=== PATIENT | male | born 1960 | race Caucasian/White ===

== ENCOUNTER 2017-03-09 20:13 | Inpatient (IN) | payer MEDICARE, MEDICAID ==
[~2017-03-09] VITALS: Ht 185.4 cm; Wt 100.0 kg
[~2017-03-09 20:13] MED LIST: AMLO-512 PO; DIVA500T35 PO; DOCU250C76 PO; HYDR25TA PO; LEVO100T4 PO; LISI-661 PO; LURA80 PO; OLAN20TA2 PO; OMEP20 PO; QUET100T PO; QUET400T PO
[2017-03-09] MEDS ORDERED: ZOLPIDEM TARTRATE 10 MG TABLET PO PRN (20:45)
[2017-03-09] MEDS ORDERED: OLANZapine 5 MG RAPDIS TABLET PO PRN (20:45)
[2017-03-09] MEDS ORDERED: LORazepam 2 MG TABLET PO PRN (20:45)
[2017-03-09] MEDS ORDERED: BENZ2TAB10 PO (20:45)
[2017-03-09] MEDS ORDERED: HALO10 PO ×2 (20:45)
[2017-03-09 21:01] LABS: BASOPHILS % (AUTO) 0.4 % (0.0-2.0); EOSINOPHILS % (AUTO) 2.7 % (1.0-6.0); HEMATOCRIT 46.6 % (41-53); LYMPHOCYTES # (AUTO) 0.8 K/uL (1.0-4.8); LYMPHOCYTES % (AUTO) 18.6 % (22.0-44.0); MEAN CORPUSCULAR HEMOGLOBIN 28.6 pg (26.0-34.0); MEAN CORPUSCULAR HGB CONC 32.1 G/dL (31.0-37.0); MEAN CORPUSCULAR VOLUME 89 fL (80-100); MONOCYTES # (AUTO) 0.5 K/uL (0.1-1.0); MONOCYTES % (AUTO) 11.2 % (2.0-9.0); NEUTROPHILS # (AUTO) 2.9 K/uL (1.8-7.7); NEUTROPHILS % (AUTO) 67.1 % (40.0-70.0); PLATELET COUNT (AUTO) 162 K/uL (150-450); RED BLOOD CELL COUNT(AUTO) 5.23 MIL/uL (4.50-5.90); RED CELL DISTRIBUTION WIDTH 14.4 % (11.5-14.5); WHITE BLOOD COUNT (AUTO) 4.3 K/uL (4.5-11.0)
[2017-03-09 21:12] LABS: ANION GAP 10 mmol/L (8-16); CALCIUM, TOTAL 8.7 mg/dL (8.8-10.5); CARBON DIOXIDE 26 mmol/L (22-29); CHLORIDE 103 mmol/L (98-107); CREATININE 1.35 mg/dL (0.60-1.30); GLOMERULAR FILTR. RATE CALC 55 mL/min (>60); POTASSIUM 3.5 mmol/L (3.5-5.1); SODIUM SERUM 139 mmol/L (136-145); UREA NITROGEN, BLOOD 13 mg/dL (7-18)
[2017-03-09 21:18] LABS: ALANINE AMINOTRANSFERASE 13 U/L (12-78); ASPARTATE AMINOTRANSFERASE 15 U/L (15-37); BILIRUBIN,TOTAL 0.3 mg/dL (0.1-1.0); TOTAL PROTEIN, SERUM 6.4 g/dL (6.4-8.2)
[2017-03-09 21:31] LABS: CHOL/HDL RATIO 3.2 (4.2-7.3)
[2017-03-10 00:22] VITALS: BP 141/72
[2017-03-10] MEDS ORDERED: QUEtiapine FUMARATE 100 MG TABLET PO PRN (01:00)
[2017-03-10 01:18] VITALS: BP 141/86
[2017-03-10 02:10] LABS: APPEARANCE,URINE CLEAR (CLEAR); GLUCOSE, URINE (UA) NEGATIVE (NEGATIVE); KETONES,URINE NEGATIVE (NEGATIVE); LEUKOCYTE ESTERASE ,URINE NEGATIVE (NEGATIVE); OCCULT BLOOD,URINE NEGATIVE (NEGATIVE); PROTEIN,URINE SEE CONFIRM (NEGATIVE)
[2017-03-10 02:40] LABS: ADD UA MICROSCOPIC YES; SULFOSALICYLIC ACID,URINE 1+ (Negative); WBC,URINE None Seen /HPF (0-5)
[2017-03-10 02:41] LABS: RBC,URINE 0-2 /HPF (0-2); SQUAMOUS EPITHELIAL CELL,UR Rare /LPF (None Seen)
[2017-03-10 08:00] VITALS: BP 152/86
[2017-03-10 16:01] VITALS: BP 138/92
[2017-03-10] MEDS ORDERED: PALI234D IM (20:27)
== END 2017-03-10 21:00 | disposition home or self-care (01) | DRG 885 ==
LOC: EMS 20:18 → EEVIPCON 20:18 → 3EX 21:32
PROVIDERS: ADMIT Psychiatry & Neurology Psychiatry; ATTEND Psychiatry & Neurology Psychiatry
DX: F29 Unspecified psychosis not due to a substance or known physiological condition (principal); R45.851 Suicidal ideations; F25.9 Schizoaffective disorder, unspecified; F41.9 Anxiety disorder, unspecified; I10 Essential (primary) hypertension; K21.9 Gastro-esophageal reflux disease without esophagitis; E03.9 Hypothyroidism, unspecified; J44.9 Chronic obstructive pulmonary disease, unspecified; F12.90 Cannabis use, unspecified, uncomplicated; F17.210 Nicotine dependence, cigarettes, uncomplicated; Z91.14 Patient's other noncompliance with medication regimen; Z79.899 Other long term (current) drug therapy; Z88.8 Allergy status to other drugs, medicaments and biological substances; Z81.1 Family history of alcohol abuse and dependence
CPT/HCPCS: 99285; G0480

== ENCOUNTER 2017-08-31 11:24 | Inpatient (IN) | payer MEDICARE, MEDICAID ==
[~2017-08-31] VITALS: Ht 193 cm; Wt 78.5 kg
[~2017-08-31 11:24] MED LIST changes: -AMLO-512 PO; +BENZ2TAB10 PO; -DIVA500T35 PO; -DOCU250C76 PO; +HALO10 PO; -HYDR25TA PO; -LEVO100T4 PO; -LISI-661 PO; -LURA80 PO; -OLAN20TA2 PO; -OMEP20 PO; +PALI234D IM; -QUET100T PO; -QUET400T PO
[2017-08-31 12:21] LABS: BASOPHILS % (AUTO) 0.6 % (0.0-2.0); EOSINOPHILS % (AUTO) 2.6 % (1.0-6.0); HEMATOCRIT 35.7 % (41-53); LYMPHOCYTES # (AUTO) 1.4 K/uL (1.0-4.8); LYMPHOCYTES % (AUTO) 23.8 % (22.0-44.0); MEAN CORPUSCULAR HEMOGLOBIN 29.9 pg (26.0-34.0); MEAN CORPUSCULAR HGB CONC 33.6 G/dL (31.0-37.0); MEAN CORPUSCULAR VOLUME 89 fL (80-100); MONOCYTES # (AUTO) 0.5 K/uL (0.1-1.0); MONOCYTES % (AUTO) 8.3 % (2.0-9.0); NEUTROPHILS # (AUTO) 3.8 K/uL (1.8-7.7); NEUTROPHILS % (AUTO) 64.7 % (40.0-70.0); PLATELET COUNT (AUTO) 246 K/uL (150-450); RED BLOOD CELL COUNT(AUTO) 4.02 MIL/uL (4.50-5.90); RED CELL DISTRIBUTION WIDTH 15.1 % (11.5-14.5)
[2017-08-31 12:36] LABS: ANION GAP 9 mmol/L (8-16); CALCIUM, TOTAL 8.9 mg/dL (8.8-10.5); CARBON DIOXIDE 27 mmol/L (22-29); CHLORIDE 104 mmol/L (98-107); CREATININE 1.35 mg/dL (0.60-1.30); GLOMERULAR FILTR. RATE CALC 55 mL/min (>60); GLUCOSE,RANDOM 81 mg/dL (70-110); POTASSIUM 3.9 mmol/L (3.5-5.1); SODIUM SERUM 140 mmol/L (136-145); UREA NITROGEN, BLOOD 17 mg/dL (7-18)
[2017-08-31 12:41] LABS: ALANINE AMINOTRANSFERASE 24 U/L (12-78); ALKALINE PHOSPHATASE 60 U/L (46-116); ASPARTATE AMINOTRANSFERASE 55 U/L (15-37); BILIRUBIN,TOTAL 0.5 mg/dL (0.1-1.0); TOTAL PROTEIN, SERUM 6.2 g/dL (6.4-8.2)
[2017-08-31 17:04] VITALS: BP 145/75
[2017-08-31] MEDS ORDERED: INFLUENZA VIRUS VACCINE QVS 2017-18 (3YR+)/PF 60 MCG/0.5 ML SYRINGE IM ONE (18:00)
[2017-09-01 06:39] VITALS: BP 106/62
[2017-09-01 08:32] VITALS: BP 101/65
[2017-09-01 09:06] LABS: CHOL/HDL RATIO 1.9 (4.2-7.3); FREE T4 (FREE THYROXINE) 0.77 ng/dL (0.76-1.46); THYROID STIMULATING HORMONE 7.05 uIU/mL (0.36-3.74)
[2017-09-01] MEDS: HALOPERIDOL 10 MG TABLET PO SCH ×2 (09:06→17:02)
[2017-09-01] MEDS: BENZTROPINE MESYLATE 2 MG TABLET PO SCH ×2 (09:06→17:02)
[2017-09-01] MEDS ORDERED: ALBUTEROL SULFATE HFA 90 MCG/PUFF 8 GM INHALER IH PRN (15:15)
[2017-09-01] MEDS ORDERED: DIVALPROEX SODIUM 500 MG ER TABLET PO SCH (17:00)
[2017-09-01] MEDS: LORazepam 2 MG TABLET PO PRN (17:02)
[2017-09-01] MEDS: FLUTICASONE/VILANTEROL 200-25 MCG/INH INHALER [14] IH SCH (17:07)
[2017-09-01 17:11] VITALS: BP 116/65
[2017-09-02] MEDS: LEVOTHYROXINE SODIUM 50 MCG TABLET PO SCH (06:12)
[2017-09-02 06:35] VITALS: BP 104/68
[2017-09-02 08:11] VITALS: BP 106/63
[2017-09-02] MEDS: BENZTROPINE MESYLATE 2 MG TABLET PO SCH ×2 (09:31→18:03)
[2017-09-02] MEDS: PALIPERIDONE 3 MG ER TABLET PO SCH ×2 (09:31→21:10)
[2017-09-02] MEDS: FLUTICASONE/VILANTEROL 200-25 MCG/INH INHALER [14] IH SCH (09:33)
[2017-09-02] MEDS: LORazepam 2 MG TABLET PO PRN (15:07)
[2017-09-02 16:00] VITALS: BP 122/75
[2017-09-02] MEDS: ZOLPIDEM TARTRATE 10 MG TABLET PO PRN (21:10)
[2017-09-03] MEDS: LEVOTHYROXINE SODIUM 50 MCG TABLET PO SCH (06:18)
[2017-09-03 06:30] VITALS: BP 120/79
[2017-09-03 08:19] VITALS: BP 125/61
[2017-09-03] MEDS: PALIPERIDONE 3 MG ER TABLET PO SCH ×2 (08:57→20:39)
[2017-09-03] MEDS: BENZTROPINE MESYLATE 2 MG TABLET PO SCH ×2 (08:57→17:54)
[2017-09-03] MEDS: FLUTICASONE/VILANTEROL 200-25 MCG/INH INHALER [14] IH SCH (09:00)
[2017-09-03 16:00] VITALS: BP 132/79
[2017-09-03] MEDS: LORazepam 2 MG TABLET PO PRN (17:54)
[2017-09-03] MEDS: ZOLPIDEM TARTRATE 10 MG TABLET PO PRN (20:39)
[2017-09-04 02:24] VITALS: BP 126/74
[2017-09-04] MEDS: LEVOTHYROXINE SODIUM 50 MCG TABLET PO SCH (06:21)
[2017-09-04 08:13] LABS: BASOPHILS % (AUTO) 0.6 % (0.0-2.0); EOSINOPHILS % (AUTO) 3.9 % (1.0-6.0); HEMATOCRIT 38.5 % (41-53); HEMOGLOBIN 12.8 g/dL (13.5-17.5); LYMPHOCYTES # (AUTO) 1.2 K/uL (1.0-4.8); LYMPHOCYTES % (AUTO) 26.9 % (22.0-44.0); MEAN CORPUSCULAR HEMOGLOBIN 29.7 pg (26.0-34.0); MEAN CORPUSCULAR HGB CONC 33.3 G/dL (31.0-37.0); MEAN CORPUSCULAR VOLUME 89 fL (80-100); MONOCYTES # (AUTO) 0.4 K/uL (0.1-1.0); MONOCYTES % (AUTO) 8.9 % (2.0-9.0); NEUTROPHILS # (AUTO) 2.6 K/uL (1.8-7.7); NEUTROPHILS % (AUTO) 59.7 % (40.0-70.0); PLATELET COUNT (AUTO) 235 K/uL (150-450); RED BLOOD CELL COUNT(AUTO) 4.31 MIL/uL (4.50-5.90); RED CELL DISTRIBUTION WIDTH 15.3 % (11.5-14.5)
[2017-09-04] MEDS: BENZTROPINE MESYLATE 2 MG TABLET PO SCH ×2 (08:13→16:54)
[2017-09-04] MEDS: PALIPERIDONE 3 MG ER TABLET PO SCH ×2 (08:13→20:58)
[2017-09-04] MEDS: FLUTICASONE/VILANTEROL 200-25 MCG/INH INHALER [14] IH SCH (08:13)
[2017-09-04] MEDS: LORazepam 2 MG TABLET PO PRN ×2 (08:13→16:54)
[2017-09-04 08:21] VITALS: BP 138/73
[2017-09-04 08:24] LABS: ALANINE AMINOTRANSFERASE 19 U/L (12-78); ALBUMIN 2.9 g/dL (3.4-5.0); ALKALINE PHOSPHATASE 59 U/L (46-116); ANION GAP 5 mmol/L (8-16); ASPARTATE AMINOTRANSFERASE 19 U/L (15-37); BILIRUBIN,TOTAL 0.3 mg/dL (0.1-1.0); CALCIUM, TOTAL 9.3 mg/dL (8.8-10.5); CARBON DIOXIDE 29 mmol/L (22-29); CHLORIDE 105 mmol/L (98-107); CREATININE 1.19 mg/dL (0.60-1.30); GLOMERULAR FILTR. RATE CALC > 60 mL/min (>60); GLUCOSE,RANDOM 80 mg/dL (70-110); POTASSIUM 4.4 mmol/L (3.5-5.1); SODIUM SERUM 139 mmol/L (136-145); TOTAL PROTEIN, SERUM 6.3 g/dL (6.4-8.2); UREA NITROGEN, BLOOD 18 mg/dL (7-18)
[2017-09-04 08:35] LABS: FREE T4 (FREE THYROXINE) 0.81 ng/dL (0.76-1.46); THYROID STIMULATING HORMONE 19.04 uIU/mL (0.36-3.74); VALPROIC ACID < 3 mcg/mL (50-100)
[2017-09-04 16:00] VITALS: BP 127/87
[2017-09-04] MEDS: ZOLPIDEM TARTRATE 10 MG TABLET PO PRN (20:58)
[2017-09-05 05:39] VITALS: BP 126/79
[2017-09-05] MEDS: LEVOTHYROXINE SODIUM 100 MCG TABLET PO SCH (06:34)
[2017-09-05] MEDS: PALIPERIDONE 3 MG ER TABLET PO SCH (08:40)
[2017-09-05] MEDS: BENZTROPINE MESYLATE 2 MG TABLET PO SCH ×2 (08:40→16:18)
[2017-09-05] MEDS: FLUTICASONE/VILANTEROL 200-25 MCG/INH INHALER [14] IH SCH ×2 (08:40→08:42)
[2017-09-05] MEDS: LORazepam 2 MG TABLET PO PRN (08:41)
[2017-09-05 09:38] VITALS: BP 129/91
[2017-09-05] MEDS: CHOLECALCIFEROL (VIT D3) 1,000 UNITS TABLET PO SCH (10:16)
[2017-09-05 16:21] VITALS: BP 134/84
[2017-09-05] MEDS: PALIPERIDONE 6 MG ER TABLET PO SCH (17:17)
[2017-09-05] MEDS: ZOLPIDEM TARTRATE 10 MG TABLET PO PRN (20:27)
[2017-09-06 00:23] VITALS: BP 109/65
[2017-09-06] MEDS: LEVOTHYROXINE SODIUM 100 MCG TABLET PO SCH (07:07)
[2017-09-06 08:19] VITALS: BP 99/52
[2017-09-06] MEDS: FLUTICASONE/VILANTEROL 200-25 MCG/INH INHALER [14] IH SCH (08:59)
[2017-09-06] MEDS: BENZTROPINE MESYLATE 2 MG TABLET PO SCH ×2 (08:59→16:25)
[2017-09-06] MEDS: CHOLECALCIFEROL (VIT D3) 1,000 UNITS TABLET PO SCH (08:59)
[2017-09-06] MEDS: PALIPERIDONE 6 MG ER TABLET PO SCH ×2 (08:59→21:00)
[2017-09-06 09:00] VITALS: BP 124/80
[2017-09-06] MEDS: PALIPERIDONE PALMITATE 234 MG/1.5 ML SYRINGE IM SCH (09:42)
[2017-09-06 16:00] VITALS: BP 130/79
[2017-09-06] MEDS: LORazepam 2 MG TABLET PO PRN (16:25)
[2017-09-07] MEDS: LEVOTHYROXINE SODIUM 100 MCG TABLET PO SCH (06:19)
[2017-09-07 06:41] VITALS: BP 125/78
[2017-09-07] MEDS: FLUTICASONE/VILANTEROL 200-25 MCG/INH INHALER [14] IH SCH (08:59)
[2017-09-07] MEDS: PALIPERIDONE 6 MG ER TABLET PO SCH ×2 (08:59→09:00)
[2017-09-07] MEDS: BENZTROPINE MESYLATE 2 MG TABLET PO SCH ×2 (08:59→16:17)
[2017-09-07] MEDS: CHOLECALCIFEROL (VIT D3) 1,000 UNITS TABLET PO SCH (08:59)
[2017-09-07] MEDS: LORazepam 2 MG TABLET PO PRN (09:04)
[2017-09-07 09:11] VITALS: BP 114/64
[2017-09-07 16:00] VITALS: BP 131/76
[2017-09-08 00:44] VITALS: BP 137/77
[2017-09-08] MEDS: LEVOTHYROXINE SODIUM 100 MCG TABLET PO SCH (06:08)
[2017-09-08 08:15] VITALS: BP 107/62
[2017-09-08] MEDS: FLUTICASONE/VILANTEROL 200-25 MCG/INH INHALER [14] IH SCH (08:41)
[2017-09-08] MEDS: CHOLECALCIFEROL (VIT D3) 1,000 UNITS TABLET PO SCH (08:42)
[2017-09-08] MEDS: BENZTROPINE MESYLATE 2 MG TABLET PO SCH ×2 (09:25→16:32)
[2017-09-08 16:00] VITALS: BP 138/86
[2017-09-08] MEDS: LORazepam 2 MG TABLET PO PRN (16:32)
[2017-09-09 02:18] VITALS: BP 132/83
[2017-09-09] MEDS: LEVOTHYROXINE SODIUM 100 MCG TABLET PO SCH (06:33)
[2017-09-09 08:25] VITALS: BP 122/78
[2017-09-09] MEDS: CHOLECALCIFEROL (VIT D3) 1,000 UNITS TABLET PO SCH (08:28)
[2017-09-09] MEDS: FLUTICASONE/VILANTEROL 200-25 MCG/INH INHALER [14] IH SCH (08:28)
[2017-09-09] MEDS: BENZTROPINE MESYLATE 2 MG TABLET PO SCH ×2 (08:28→16:50)
[2017-09-09 16:12] VITALS: BP 135/86
[2017-09-10] MEDS: LEVOTHYROXINE SODIUM 100 MCG TABLET PO SCH (06:19)
[2017-09-10 06:46] VITALS: BP 107/74
[2017-09-10] MEDS: LORazepam 2 MG TABLET PO PRN (08:19)
[2017-09-10] MEDS: FLUTICASONE/VILANTEROL 200-25 MCG/INH INHALER [14] IH SCH (08:19)
[2017-09-10] MEDS: CHOLECALCIFEROL (VIT D3) 1,000 UNITS TABLET PO SCH (08:19)
[2017-09-10] MEDS: BENZTROPINE MESYLATE 2 MG TABLET PO SCH ×2 (08:19→16:17)
[2017-09-10 09:44] VITALS: BP 99/62
[2017-09-10 16:33] VITALS: BP 123/79
[2017-09-11] MEDS: LEVOTHYROXINE SODIUM 100 MCG TABLET PO SCH (06:09)
[2017-09-11 06:59] VITALS: BP 126/69
[2017-09-11 08:11] VITALS: BP 105/68
[2017-09-11] MEDS: CHOLECALCIFEROL (VIT D3) 1,000 UNITS TABLET PO SCH ×2 (09:00→09:21)
[2017-09-11] MEDS: FLUTICASONE/VILANTEROL 200-25 MCG/INH INHALER [14] IH SCH ×2 (09:00→09:19)
[2017-09-11] MEDS: BENZTROPINE MESYLATE 2 MG TABLET PO SCH ×2 (09:21→17:02)
[2017-09-11 16:00] VITALS: BP 121/78
[2017-09-12] MEDS: LEVOTHYROXINE SODIUM 100 MCG TABLET PO SCH (06:08)
[2017-09-12 07:27] VITALS: BP 128/80
[2017-09-12 08:10] VITALS: BP 122/72
[2017-09-12] MEDS: BENZTROPINE MESYLATE 2 MG TABLET PO SCH ×2 (08:48→16:42)
[2017-09-12] MEDS: CHOLECALCIFEROL (VIT D3) 1,000 UNITS TABLET PO SCH (08:48)
[2017-09-12] MEDS: FLUTICASONE/VILANTEROL 200-25 MCG/INH INHALER [14] IH SCH (08:48)
[2017-09-12 16:00] VITALS: BP 115/68
[2017-09-13 05:41] VITALS: BP 123/79
[2017-09-13] MEDS: LEVOTHYROXINE SODIUM 100 MCG TABLET PO SCH (06:36)
[2017-09-13 08:20] VITALS: BP 139/78
[2017-09-13] MEDS: CHOLECALCIFEROL (VIT D3) 1,000 UNITS TABLET PO SCH (09:24)
[2017-09-13] MEDS: FLUTICASONE/VILANTEROL 200-25 MCG/INH INHALER [14] IH SCH (09:24)
[2017-09-13] MEDS: BENZTROPINE MESYLATE 2 MG TABLET PO SCH ×2 (09:24→16:22)
[2017-09-13 16:00] VITALS: BP 136/77
[2017-09-13] MEDS: DIVALPROEX SODIUM 500 MG ER TABLET PO SCH (16:22)
[2017-09-14 06:21] VITALS: BP 113/74
[2017-09-14] MEDS: LEVOTHYROXINE SODIUM 100 MCG TABLET PO SCH (06:22)
[2017-09-14] MEDS: FLUTICASONE/VILANTEROL 200-25 MCG/INH INHALER [14] IH SCH (08:51)
[2017-09-14] MEDS: CHOLECALCIFEROL (VIT D3) 1,000 UNITS TABLET PO SCH (08:51)
[2017-09-14] MEDS: BENZTROPINE MESYLATE 2 MG TABLET PO SCH ×2 (08:51→16:25)
[2017-09-14] MEDS: DIVALPROEX SODIUM 500 MG ER TABLET PO SCH ×2 (08:51→16:25)
[2017-09-14 09:16] VITALS: BP 101/58
[2017-09-14 17:26] VITALS: BP 130/77
[2017-09-15] MEDS: LEVOTHYROXINE SODIUM 100 MCG TABLET PO SCH (06:10)
[2017-09-15] MEDS: CHOLECALCIFEROL (VIT D3) 1,000 UNITS TABLET PO SCH (08:17)
[2017-09-15] MEDS: BENZTROPINE MESYLATE 2 MG TABLET PO SCH ×2 (08:17→16:47)
[2017-09-15] MEDS: DIVALPROEX SODIUM 500 MG ER TABLET PO SCH ×2 (08:17→16:47)
[2017-09-15] MEDS: FLUTICASONE/VILANTEROL 200-25 MCG/INH INHALER [14] IH SCH (08:17)
[2017-09-15 08:30] VITALS: BP 117/69
[2017-09-15 16:00] VITALS: BP 137/87
[2017-09-16] MEDS: LEVOTHYROXINE SODIUM 100 MCG TABLET PO SCH (06:23)
[2017-09-16 06:48] VITALS: BP 111/72
[2017-09-16 08:20] VITALS: BP 119/69
[2017-09-16] MEDS: FLUTICASONE/VILANTEROL 200-25 MCG/INH INHALER [14] IH SCH (09:00)
[2017-09-16] MEDS: CHOLECALCIFEROL (VIT D3) 1,000 UNITS TABLET PO SCH (09:00)
[2017-09-16] MEDS: BENZTROPINE MESYLATE 2 MG TABLET PO SCH ×2 (09:00→16:04)
[2017-09-16] MEDS: LORazepam 1 MG TABLET PO SCH ×3 (09:00→16:04)
[2017-09-16 16:00] VITALS: BP 138/87
[2017-09-17] MEDS: LEVOTHYROXINE SODIUM 100 MCG TABLET PO SCH (06:07)
[2017-09-17 08:00] VITALS: BP 140/77
[2017-09-17 08:21] LABS: BASOPHILS % (AUTO) 0.8 % (0.0-2.0); EOSINOPHILS % (AUTO) 2.6 % (1.0-6.0); HEMATOCRIT 39.2 % (41-53); HEMOGLOBIN 13.3 g/dL (13.5-17.5); LYMPHOCYTES # (AUTO) 1.3 K/uL (1.0-4.8); LYMPHOCYTES % (AUTO) 25.1 % (22.0-44.0); MEAN CORPUSCULAR HEMOGLOBIN 29.9 pg (26.0-34.0); MEAN CORPUSCULAR HGB CONC 33.9 G/dL (31.0-37.0); MEAN CORPUSCULAR VOLUME 88 fL (80-100); MONOCYTES # (AUTO) 0.5 K/uL (0.1-1.0); MONOCYTES % (AUTO) 8.5 % (2.0-9.0); NEUTROPHILS # (AUTO) 3.3 K/uL (1.8-7.7); PLATELET COUNT (AUTO) 243 K/uL (150-450); RED BLOOD CELL COUNT(AUTO) 4.45 MIL/uL (4.50-5.90)
[2017-09-17] MEDS: FLUTICASONE/VILANTEROL 200-25 MCG/INH INHALER [14] IH SCH (08:23)
[2017-09-17] MEDS: LORazepam 1 MG TABLET PO SCH ×2 (08:23→16:48)
[2017-09-17] MEDS: BENZTROPINE MESYLATE 2 MG TABLET PO SCH ×2 (08:23→16:48)
[2017-09-17] MEDS: CHOLECALCIFEROL (VIT D3) 1,000 UNITS TABLET PO SCH (08:23)
[2017-09-17 09:05] LABS: ALANINE AMINOTRANSFERASE 14 U/L (12-78); ALKALINE PHOSPHATASE 59 U/L (46-116); ANION GAP 6 mmol/L (8-16); ASPARTATE AMINOTRANSFERASE 16 U/L (15-37); BILIRUBIN,TOTAL 0.4 mg/dL (0.1-1.0); CALCIUM, TOTAL 8.9 mg/dL (8.8-10.5); CARBON DIOXIDE 29 mmol/L (22-29); CHLORIDE 107 mmol/L (98-107); CREATININE 1.17 mg/dL (0.60-1.30); FREE T4 (FREE THYROXINE) 0.76 ng/dL (0.76-1.46); GLOMERULAR FILTR. RATE CALC > 60 mL/min (>60); GLUCOSE,RANDOM 85 mg/dL (70-110); POTASSIUM 4.1 mmol/L (3.5-5.1); SODIUM SERUM 142 mmol/L (136-145); THYROID STIMULATING HORMONE 13.62 uIU/mL (0.36-3.74); TOTAL PROTEIN, SERUM 6.4 g/dL (6.4-8.2); UREA NITROGEN, BLOOD 25 mg/dL (7-18); VALPROIC ACID 3 mcg/mL (50-100)
[2017-09-17 16:00] VITALS: BP 126/81
[2017-09-18 06:10] VITALS: BP 121/65
[2017-09-18] MEDS: LEVOTHYROXINE SODIUM 125 MCG TABLET PO SCH (06:25)
[2017-09-18 08:10] VITALS: BP 138/82
[2017-09-18] MEDS: LORazepam 1 MG TABLET PO SCH ×3 (08:48→16:23)
[2017-09-18] MEDS: CHOLECALCIFEROL (VIT D3) 1,000 UNITS TABLET PO SCH (08:48)
[2017-09-18] MEDS: BENZTROPINE MESYLATE 2 MG TABLET PO SCH ×2 (08:48→16:22)
[2017-09-18] MEDS: FLUTICASONE/VILANTEROL 200-25 MCG/INH INHALER [14] IH SCH (08:49)
[2017-09-18 16:00] VITALS: BP 122/74
[2017-09-19] MEDS: LEVOTHYROXINE SODIUM 125 MCG TABLET PO SCH (06:28)
[2017-09-19 06:32] VITALS: BP 131/79
[2017-09-19 08:26] VITALS: BP 135/84
[2017-09-19] MEDS: LORazepam 1 MG TABLET PO SCH ×3 (08:52→16:36)
[2017-09-19] MEDS: CHOLECALCIFEROL (VIT D3) 1,000 UNITS TABLET PO SCH (08:52)
[2017-09-19] MEDS: BENZTROPINE MESYLATE 2 MG TABLET PO SCH ×2 (08:52→17:47)
[2017-09-19] MEDS: FLUTICASONE/VILANTEROL 200-25 MCG/INH INHALER [14] IH SCH (08:52)
[2017-09-19 16:15] VITALS: BP 132/82
[2017-09-20] MEDS: LEVOTHYROXINE SODIUM 125 MCG TABLET PO SCH (06:26)
[2017-09-20 06:34] VITALS: BP 136/78
[2017-09-20] MEDS: BENZTROPINE MESYLATE 2 MG TABLET PO SCH ×3 (08:34→16:19)
[2017-09-20] MEDS: CHOLECALCIFEROL (VIT D3) 1,000 UNITS TABLET PO SCH ×2 (08:34→08:57)
[2017-09-20] MEDS: LORazepam 1 MG TABLET PO SCH ×4 (08:34→16:19)
[2017-09-20] MEDS: FLUTICASONE/VILANTEROL 200-25 MCG/INH INHALER [14] IH SCH (08:34)
[2017-09-20 09:17] VITALS: BP 134/77
[2017-09-20 16:00] VITALS: BP 131/79
[2017-09-21 06:31] VITALS: BP 119/84
[2017-09-21] MEDS: LEVOTHYROXINE SODIUM 125 MCG TABLET PO SCH (06:39)
[2017-09-21 08:18] VITALS: BP 136/76
[2017-09-21] MEDS: CHOLECALCIFEROL (VIT D3) 1,000 UNITS TABLET PO SCH (09:00)
[2017-09-21] MEDS: FLUTICASONE/VILANTEROL 200-25 MCG/INH INHALER [14] IH SCH (09:20)
[2017-09-21] MEDS: BENZTROPINE MESYLATE 2 MG TABLET PO SCH ×2 (09:20→16:10)
[2017-09-21] MEDS: LORazepam 1 MG TABLET PO SCH ×3 (09:20→16:10)
[2017-09-21 16:09] VITALS: BP 131/70
[2017-09-22] MEDS: LEVOTHYROXINE SODIUM 125 MCG TABLET PO SCH (06:17)
[2017-09-22 06:27] VITALS: BP 140/85
[2017-09-22 08:27] VITALS: BP 138/84
[2017-09-22] MEDS: CHOLECALCIFEROL (VIT D3) 1,000 UNITS TABLET PO SCH (09:00)
[2017-09-22] MEDS: FLUTICASONE/VILANTEROL 200-25 MCG/INH INHALER [14] IH SCH ×2 (09:00→09:35)
[2017-09-22] MEDS: LORazepam 1 MG TABLET PO SCH ×3 (09:35→16:05)
[2017-09-22] MEDS: BENZTROPINE MESYLATE 2 MG TABLET PO SCH ×2 (09:35→16:05)
[2017-09-22 16:00] VITALS: BP 133/86
[2017-09-22] MEDS: PALIPERIDONE 6 MG ER TABLET PO SCH (21:16)
[2017-09-23 06:08] VITALS: BP 122/63
[2017-09-23] MEDS: LEVOTHYROXINE SODIUM 125 MCG TABLET PO SCH (06:33)
[2017-09-23 08:06] VITALS: BP 139/85
[2017-09-23] MEDS: PALIPERIDONE 6 MG ER TABLET PO SCH ×2 (09:35→20:18)
[2017-09-23] MEDS: LORazepam 1 MG TABLET PO SCH ×3 (09:35→17:21)
[2017-09-23] MEDS: BENZTROPINE MESYLATE 2 MG TABLET PO SCH ×2 (09:35→17:21)
[2017-09-23] MEDS: CHOLECALCIFEROL (VIT D3) 1,000 UNITS TABLET PO SCH (09:35)
[2017-09-23] MEDS: FLUTICASONE/VILANTEROL 200-25 MCG/INH INHALER [14] IH SCH (09:36)
[2017-09-23 16:10] VITALS: BP 127/73
[2017-09-24] MEDS: LEVOTHYROXINE SODIUM 125 MCG TABLET PO SCH (06:23)
[2017-09-24 08:08] VITALS: BP 109/68
[2017-09-24] MEDS: BENZTROPINE MESYLATE 2 MG TABLET PO SCH ×2 (08:24→17:18)
[2017-09-24] MEDS: LORazepam 1 MG TABLET PO SCH ×3 (08:24→17:18)
[2017-09-24] MEDS: PALIPERIDONE 6 MG ER TABLET PO SCH ×2 (08:24→20:56)
[2017-09-24] MEDS: CHOLECALCIFEROL (VIT D3) 1,000 UNITS TABLET PO SCH ×2 (08:25→08:29)
[2017-09-24] MEDS: FLUTICASONE/VILANTEROL 200-25 MCG/INH INHALER [14] IH SCH (08:35)
[2017-09-24 16:14] VITALS: BP 125/83
[2017-09-25] MEDS: LEVOTHYROXINE SODIUM 125 MCG TABLET PO SCH (06:26)
[2017-09-25] MEDS: PALIPERIDONE 6 MG ER TABLET PO SCH ×2 (08:56→20:18)
[2017-09-25] MEDS: BENZTROPINE MESYLATE 2 MG TABLET PO SCH ×2 (08:56→16:09)
[2017-09-25] MEDS: LORazepam 1 MG TABLET PO SCH ×3 (08:56→16:09)
[2017-09-25] MEDS: CHOLECALCIFEROL (VIT D3) 1,000 UNITS TABLET PO SCH (08:57)
[2017-09-25] MEDS: FLUTICASONE/VILANTEROL 200-25 MCG/INH INHALER [14] IH SCH (08:57)
[2017-09-25 09:27] VITALS: BP 107/65
[2017-09-25 16:00] VITALS: BP 138/83
[2017-09-26 06:20] VITALS: BP 125/86
[2017-09-26] MEDS: LEVOTHYROXINE SODIUM 125 MCG TABLET PO SCH (06:51)
[2017-09-26] MEDS: PALIPERIDONE 6 MG ER TABLET PO SCH ×2 (08:14→20:45)
[2017-09-26] MEDS: CHOLECALCIFEROL (VIT D3) 1,000 UNITS TABLET PO SCH (08:14)
[2017-09-26] MEDS: LORazepam 1 MG TABLET PO SCH ×3 (08:14→16:01)
[2017-09-26] MEDS: BENZTROPINE MESYLATE 2 MG TABLET PO SCH ×2 (08:14→16:01)
[2017-09-26] MEDS: FLUTICASONE/VILANTEROL 200-25 MCG/INH INHALER [14] IH SCH (08:14)
[2017-09-26 09:44] VITALS: BP 107/89
[2017-09-26 16:00] VITALS: BP 128/77
[2017-09-27 03:56] VITALS: BP 114/63
[2017-09-27] MEDS: LEVOTHYROXINE SODIUM 125 MCG TABLET PO SCH (06:52)
[2017-09-27 08:25] VITALS: BP 126/68
[2017-09-27] MEDS: BENZTROPINE MESYLATE 2 MG TABLET PO SCH ×2 (08:46→16:24)
[2017-09-27] MEDS: LORazepam 1 MG TABLET PO SCH ×3 (08:46→16:24)
[2017-09-27] MEDS: PALIPERIDONE 6 MG ER TABLET PO SCH ×2 (08:46→20:34)
[2017-09-27] MEDS: CHOLECALCIFEROL (VIT D3) 1,000 UNITS TABLET PO SCH (08:55)
[2017-09-27] MEDS: FLUTICASONE/VILANTEROL 200-25 MCG/INH INHALER [14] IH SCH (08:55)
[2017-09-27] MEDS ORDERED: TUBERCULIN, PURIFIED PROTEIN DERIVATIVE 5 TU/0.1 ML SYG ID ONE (14:15)
[2017-09-27 16:00] VITALS: BP 118/73
[2017-09-28 05:58] VITALS: BP 122/79
[2017-09-28] MEDS: LEVOTHYROXINE SODIUM 125 MCG TABLET PO SCH (07:14)
[2017-09-28 08:33] VITALS: BP 125/77
[2017-09-28] MEDS: CHOLECALCIFEROL (VIT D3) 1,000 UNITS TABLET PO SCH (08:35)
[2017-09-28] MEDS: LORazepam 1 MG TABLET PO SCH ×3 (08:35→16:08)
[2017-09-28] MEDS: FLUTICASONE/VILANTEROL 200-25 MCG/INH INHALER [14] IH SCH (08:35)
[2017-09-28] MEDS: PALIPERIDONE 6 MG ER TABLET PO SCH ×2 (08:35→20:35)
[2017-09-28] MEDS: BENZTROPINE MESYLATE 2 MG TABLET PO SCH ×2 (08:35→16:08)
[2017-09-28 16:15] VITALS: BP 129/85
[2017-09-29 06:09] VITALS: BP 127/83
[2017-09-29] MEDS: LEVOTHYROXINE SODIUM 125 MCG TABLET PO SCH (06:17)
[2017-09-29 08:00] VITALS: BP 131/83
[2017-09-29] MEDS: PALIPERIDONE 6 MG ER TABLET PO SCH ×2 (08:40→20:43)
[2017-09-29] MEDS: BENZTROPINE MESYLATE 2 MG TABLET PO SCH (08:40)
[2017-09-29] MEDS: LORazepam 1 MG TABLET PO SCH ×3 (08:40→16:40)
[2017-09-29] MEDS: CHOLECALCIFEROL (VIT D3) 1,000 UNITS TABLET PO SCH (08:41)
[2017-09-29] MEDS: FLUTICASONE/VILANTEROL 200-25 MCG/INH INHALER [14] IH SCH (08:41)
[2017-09-29 16:00] VITALS: BP 137/79
[2017-09-30 06:26] VITALS: BP 140/74
[2017-09-30] MEDS: LEVOTHYROXINE SODIUM 125 MCG TABLET PO SCH (06:30)
[2017-09-30 08:13] VITALS: BP 137/86
[2017-09-30] MEDS: PALIPERIDONE 6 MG ER TABLET PO SCH ×2 (08:37→20:45)
[2017-09-30] MEDS: FLUTICASONE/VILANTEROL 200-25 MCG/INH INHALER [14] IH SCH (08:37)
[2017-09-30] MEDS: CHOLECALCIFEROL (VIT D3) 1,000 UNITS TABLET PO SCH (08:37)
[2017-09-30] MEDS: LORazepam 1 MG TABLET PO SCH ×3 (08:37→16:01)
[2017-09-30 16:00] VITALS: BP 138/84
[2017-10-01] MEDS: LEVOTHYROXINE SODIUM 125 MCG TABLET PO SCH (06:24)
[2017-10-01] MEDS: CHOLECALCIFEROL (VIT D3) 1,000 UNITS TABLET PO SCH (09:00)
[2017-10-01] MEDS: FLUTICASONE/VILANTEROL 200-25 MCG/INH INHALER [14] IH SCH (09:00)
[2017-10-01 09:01] VITALS: BP 143/80
[2017-10-01] MEDS: PALIPERIDONE 6 MG ER TABLET PO SCH ×2 (09:04→20:58)
[2017-10-01] MEDS: LORazepam 1 MG TABLET PO SCH ×3 (09:05→16:12)
[2017-10-01 16:00] VITALS: BP 140/81
[2017-10-02 06:16] VITALS: BP 139/65
[2017-10-02] MEDS: LEVOTHYROXINE SODIUM 125 MCG TABLET PO SCH (06:25)
[2017-10-02 08:17] VITALS: BP 106/73
[2017-10-02] MEDS: PALIPERIDONE 6 MG ER TABLET PO SCH ×2 (08:36→20:43)
[2017-10-02] MEDS: LORazepam 1 MG TABLET PO SCH ×3 (08:36→16:13)
[2017-10-02] MEDS: FLUTICASONE/VILANTEROL 200-25 MCG/INH INHALER [14] IH SCH (08:37)
[2017-10-02] MEDS: CHOLECALCIFEROL (VIT D3) 1,000 UNITS TABLET PO SCH (08:37)
[2017-10-02 16:00] VITALS: BP 142/80
[2017-10-03 06:06] VITALS: BP 128/81
[2017-10-03] MEDS: LEVOTHYROXINE SODIUM 125 MCG TABLET PO SCH (06:27)
[2017-10-03 08:35] VITALS: BP 112/68
[2017-10-03] MEDS: FLUTICASONE/VILANTEROL 200-25 MCG/INH INHALER [14] IH SCH (09:00)
[2017-10-03] MEDS: CHOLECALCIFEROL (VIT D3) 1,000 UNITS TABLET PO SCH (09:00)
[2017-10-03] MEDS: LORazepam 1 MG TABLET PO SCH ×3 (09:33→17:03)
[2017-10-03] MEDS: PALIPERIDONE 6 MG ER TABLET PO SCH ×2 (11:37→20:50)
[2017-10-03 16:09] VITALS: BP 122/74
[2017-10-04] MEDS: LEVOTHYROXINE SODIUM 125 MCG TABLET PO SCH (06:34)
[2017-10-04 06:41] VITALS: BP 138/82
[2017-10-04 08:12] VITALS: BP 107/69
[2017-10-04] MEDS: PALIPERIDONE PALMITATE 234 MG/1.5 ML SYRINGE IM SCH (09:00)
[2017-10-04] MEDS: FLUTICASONE/VILANTEROL 200-25 MCG/INH INHALER [14] IH SCH (09:00)
[2017-10-04] MEDS: CHOLECALCIFEROL (VIT D3) 1,000 UNITS TABLET PO SCH (09:31)
[2017-10-04] MEDS: LORazepam 1 MG TABLET PO SCH ×3 (09:31→16:07)
[2017-10-04] MEDS: PALIPERIDONE 6 MG ER TABLET PO SCH ×2 (09:32→20:33)
[2017-10-04 16:00] VITALS: BP 142/88
[2017-10-05] MEDS: LEVOTHYROXINE SODIUM 125 MCG TABLET PO SCH (06:30)
[2017-10-05 07:10] VITALS: BP 119/66
[2017-10-05] MEDS: PALIPERIDONE 6 MG ER TABLET PO SCH ×3 (08:09→20:16)
[2017-10-05] MEDS: CHOLECALCIFEROL (VIT D3) 1,000 UNITS TABLET PO SCH ×2 (08:09→09:00)
[2017-10-05] MEDS: FLUTICASONE/VILANTEROL 200-25 MCG/INH INHALER [14] IH SCH (08:09)
[2017-10-05] MEDS: LORazepam 1 MG TABLET PO SCH ×4 (08:11→16:11)
[2017-10-05 08:17] VITALS: BP 136/84
[2017-10-05 16:00] VITALS: BP 127/85
[2017-10-06 03:22] VITALS: BP 122/78
[2017-10-06] MEDS: LEVOTHYROXINE SODIUM 125 MCG TABLET PO SCH (06:30)
[2017-10-06] MEDS: FLUTICASONE/VILANTEROL 200-25 MCG/INH INHALER [14] IH SCH (08:24)
[2017-10-06] MEDS: PALIPERIDONE 6 MG ER TABLET PO SCH (08:24)
[2017-10-06] MEDS: LORazepam 1 MG TABLET PO SCH ×3 (08:24→16:35)
[2017-10-06] MEDS: CHOLECALCIFEROL (VIT D3) 1,000 UNITS TABLET PO SCH (08:24)
[2017-10-06 08:35] VITALS: BP 116/60
[2017-10-06 16:00] VITALS: BP 140/79
[2017-10-06] MEDS: PALIPERIDONE 3 MG ER TABLET PO SCH (20:29)
[2017-10-07 02:00] VITALS: BP 132/82
[2017-10-07] MEDS: LEVOTHYROXINE SODIUM 125 MCG TABLET PO SCH (06:26)
[2017-10-07] MEDS: LORazepam 1 MG TABLET PO SCH ×3 (08:27→16:04)
[2017-10-07] MEDS: FLUTICASONE/VILANTEROL 200-25 MCG/INH INHALER [14] IH SCH (08:27)
[2017-10-07] MEDS: CHOLECALCIFEROL (VIT D3) 1,000 UNITS TABLET PO SCH (08:27)
[2017-10-07] MEDS: PALIPERIDONE 3 MG ER TABLET PO SCH ×2 (08:27→20:18)
[2017-10-07 09:01] VITALS: BP 131/74
[2017-10-07 16:25] VITALS: BP 131/75
[2017-10-08] MEDS: LEVOTHYROXINE SODIUM 125 MCG TABLET PO SCH (06:30)
[2017-10-08 06:48] VITALS: BP 154/71
[2017-10-08 08:15] VITALS: BP 123/80
[2017-10-08] MEDS: PALIPERIDONE 3 MG ER TABLET PO SCH ×2 (08:57→20:09)
[2017-10-08] MEDS: LORazepam 1 MG TABLET PO SCH ×3 (08:57→16:18)
[2017-10-08] MEDS: FLUTICASONE/VILANTEROL 200-25 MCG/INH INHALER [14] IH SCH (09:00)
[2017-10-08] MEDS: CHOLECALCIFEROL (VIT D3) 1,000 UNITS TABLET PO SCH (09:00)
[2017-10-08 16:36] VITALS: BP 136/86
[2017-10-09] MEDS: LEVOTHYROXINE SODIUM 125 MCG TABLET PO SCH (06:30)
[2017-10-09 06:36] VITALS: BP 100/65
[2017-10-09 08:00] VITALS: BP 112/70
[2017-10-09] MEDS: PALIPERIDONE 3 MG ER TABLET PO SCH ×2 (08:51→20:26)
[2017-10-09] MEDS: LORazepam 1 MG TABLET PO SCH ×3 (08:51→16:44)
[2017-10-09] MEDS: FLUTICASONE/VILANTEROL 200-25 MCG/INH INHALER [14] IH SCH (08:56)
[2017-10-09] MEDS: CHOLECALCIFEROL (VIT D3) 1,000 UNITS TABLET PO SCH (08:56)
[2017-10-09 16:51] VITALS: BP 130/85
[2017-10-10 05:56] VITALS: BP 128/75
[2017-10-10] MEDS: LEVOTHYROXINE SODIUM 125 MCG TABLET PO SCH (06:30)
[2017-10-10] MEDS: LORazepam 1 MG TABLET PO SCH ×3 (08:13→16:41)
[2017-10-10] MEDS: FLUTICASONE/VILANTEROL 200-25 MCG/INH INHALER [14] IH SCH (08:13)
[2017-10-10] MEDS: PALIPERIDONE 3 MG ER TABLET PO SCH ×2 (08:13→20:53)
[2017-10-10] MEDS: CHOLECALCIFEROL (VIT D3) 1,000 UNITS TABLET PO SCH (08:13)
[2017-10-10 09:36] VITALS: BP 115/80
[2017-10-10 17:20] VITALS: BP 140/88
[2017-10-11] MEDS: LEVOTHYROXINE SODIUM 125 MCG TABLET PO SCH (06:30)
[2017-10-11 08:23] VITALS: BP 111/68
[2017-10-11] MEDS: CHOLECALCIFEROL (VIT D3) 1,000 UNITS TABLET PO SCH (09:00)
[2017-10-11] MEDS: FLUTICASONE/VILANTEROL 200-25 MCG/INH INHALER [14] IH SCH (09:00)
[2017-10-11] MEDS: LORazepam 1 MG TABLET PO SCH ×3 (09:04→16:44)
[2017-10-11] MEDS: PALIPERIDONE 3 MG ER TABLET PO SCH ×2 (09:04→20:31)
[2017-10-11 16:15] VITALS: BP 138/79
[2017-10-12 06:21] VITALS: BP 120/90
[2017-10-12] MEDS: LEVOTHYROXINE SODIUM 125 MCG TABLET PO SCH (06:30)
[2017-10-12] MEDS: FLUTICASONE/VILANTEROL 200-25 MCG/INH INHALER [14] IH SCH (09:00)
[2017-10-12] MEDS: CHOLECALCIFEROL (VIT D3) 1,000 UNITS TABLET PO SCH (09:00)
[2017-10-12] MEDS: PALIPERIDONE 3 MG ER TABLET PO SCH ×2 (09:02→20:36)
[2017-10-12] MEDS: LORazepam 1 MG TABLET PO SCH ×3 (09:02→16:17)
[2017-10-12 10:25] VITALS: BP 127/78
[2017-10-12 17:47] VITALS: BP 156/93
[2017-10-13] MEDS: LEVOTHYROXINE SODIUM 125 MCG TABLET PO SCH (06:30)
[2017-10-13 08:39] VITALS: BP 123/76
[2017-10-13] MEDS: CHOLECALCIFEROL (VIT D3) 1,000 UNITS TABLET PO SCH ×2 (08:52→09:00)
[2017-10-13] MEDS: LORazepam 1 MG TABLET PO SCH ×4 (08:52→17:00)
[2017-10-13] MEDS: PALIPERIDONE 3 MG ER TABLET PO SCH ×2 (08:52→20:00)
[2017-10-13] MEDS: FLUTICASONE/VILANTEROL 200-25 MCG/INH INHALER [14] IH SCH (08:53)
[2017-10-13 16:12] VITALS: BP 155/99
[2017-10-14 00:30] VITALS: BP 139/86
[2017-10-14] MEDS: LEVOTHYROXINE SODIUM 125 MCG TABLET PO SCH (06:18)
[2017-10-14 08:16] VITALS: BP 126/76
[2017-10-14] MEDS: LORazepam 1 MG TABLET PO SCH ×3 (09:00→17:36)
[2017-10-14] MEDS: CHOLECALCIFEROL (VIT D3) 1,000 UNITS TABLET PO SCH (09:00)
[2017-10-14] MEDS: FLUTICASONE/VILANTEROL 200-25 MCG/INH INHALER [14] IH SCH (09:00)
[2017-10-14] MEDS: PALIPERIDONE 3 MG ER TABLET PO SCH ×2 (09:46→20:50)
[2017-10-14 16:14] VITALS: BP 158/98
[2017-10-14 16:30] VITALS: BP 131/84
[2017-10-15] MEDS: LEVOTHYROXINE SODIUM 125 MCG TABLET PO SCH (06:17)
[2017-10-15] MEDS: FLUTICASONE/VILANTEROL 200-25 MCG/INH INHALER [14] IH SCH (08:33)
[2017-10-15] MEDS: CHOLECALCIFEROL (VIT D3) 1,000 UNITS TABLET PO SCH (08:33)
[2017-10-15] MEDS: LORazepam 1 MG TABLET PO SCH ×3 (08:33→15:59)
[2017-10-15] MEDS: PALIPERIDONE 3 MG ER TABLET PO SCH ×2 (08:33→20:26)
[2017-10-15 09:16] VITALS: BP 138/98
[2017-10-15 16:22] VITALS: BP 145/90
[2017-10-16 05:23] VITALS: BP 137/87
[2017-10-16] MEDS: LEVOTHYROXINE SODIUM 125 MCG TABLET PO SCH (06:30)
[2017-10-16 08:25] VITALS: BP 119/69
[2017-10-16] MEDS: FLUTICASONE/VILANTEROL 200-25 MCG/INH INHALER [14] IH SCH (09:00)
[2017-10-16] MEDS: CHOLECALCIFEROL (VIT D3) 1,000 UNITS TABLET PO SCH (09:00)
[2017-10-16] MEDS: PALIPERIDONE 3 MG ER TABLET PO SCH ×2 (09:26→20:25)
[2017-10-16] MEDS: LORazepam 1 MG TABLET PO SCH ×3 (09:27→16:17)
[2017-10-16 16:27] VITALS: BP 136/85
[2017-10-17] MEDS: LEVOTHYROXINE SODIUM 125 MCG TABLET PO SCH (06:30)
[2017-10-17 06:42] VITALS: BP 135/80
[2017-10-17 08:00] VITALS: BP 139/69
[2017-10-17] MEDS: LORazepam 1 MG TABLET PO SCH ×3 (08:38→16:20)
[2017-10-17] MEDS: PALIPERIDONE 3 MG ER TABLET PO SCH (08:38)
[2017-10-17] MEDS: FLUTICASONE/VILANTEROL 200-25 MCG/INH INHALER [14] IH SCH (08:40)
[2017-10-17] MEDS: CHOLECALCIFEROL (VIT D3) 1,000 UNITS TABLET PO SCH (08:41)
[2017-10-17 16:33] VITALS: BP 137/87
[2017-10-17] MEDS: PALIPERIDONE 6 MG ER TABLET PO SCH (20:12)
[2017-10-18] MEDS: LEVOTHYROXINE SODIUM 125 MCG TABLET PO SCH (06:11)
[2017-10-18 06:21] VITALS: BP 115/62
[2017-10-18 08:13] VITALS: BP 111/69
[2017-10-18] MEDS: LORazepam 1 MG TABLET PO SCH ×3 (08:21→16:37)
[2017-10-18] MEDS: PALIPERIDONE 6 MG ER TABLET PO SCH ×3 (08:21→20:53)
[2017-10-18] MEDS: CHOLECALCIFEROL (VIT D3) 1,000 UNITS TABLET PO SCH (08:22)
[2017-10-18] MEDS: FLUTICASONE/VILANTEROL 200-25 MCG/INH INHALER [14] IH SCH (08:22)
[2017-10-18] MEDS: PALIPERIDONE PALMITATE 234 MG/1.5 ML SYRINGE IM SCH (12:46)
[2017-10-18 16:00] VITALS: BP 138/88
[2017-10-19] MEDS: LEVOTHYROXINE SODIUM 125 MCG TABLET PO SCH (06:30)
[2017-10-19 06:31] VITALS: BP 114/65
[2017-10-19] MEDS: LORazepam 1 MG TABLET PO SCH ×3 (08:49→16:16)
[2017-10-19 08:50] VITALS: BP 125/61
[2017-10-19] MEDS: PALIPERIDONE 6 MG ER TABLET PO SCH ×2 (08:50→20:37)
[2017-10-19] MEDS: FLUTICASONE/VILANTEROL 200-25 MCG/INH INHALER [14] IH SCH (08:50)
[2017-10-19] MEDS: CHOLECALCIFEROL (VIT D3) 1,000 UNITS TABLET PO SCH (09:00)
[2017-10-19 16:21] VITALS: BP 136/83
[2017-10-20 06:04] VITALS: BP 138/81
[2017-10-20] MEDS: LEVOTHYROXINE SODIUM 125 MCG TABLET PO SCH (06:30)
[2017-10-20 08:34] VITALS: BP 116/67
[2017-10-20] MEDS: PALIPERIDONE 6 MG ER TABLET PO SCH ×2 (09:00→20:03)
[2017-10-20] MEDS: CHOLECALCIFEROL (VIT D3) 1,000 UNITS TABLET PO SCH (09:01)
[2017-10-20] MEDS: LORazepam 1 MG TABLET PO SCH ×3 (09:01→16:05)
[2017-10-20] MEDS: FLUTICASONE/VILANTEROL 200-25 MCG/INH INHALER [14] IH SCH (09:02)
[2017-10-20 16:29] VITALS: BP 144/93
[2017-10-21 06:22] VITALS: BP 112/71
[2017-10-21] MEDS: LEVOTHYROXINE SODIUM 125 MCG TABLET PO SCH (06:30)
[2017-10-21] MEDS: LORazepam 1 MG TABLET PO SCH ×3 (08:56→16:03)
[2017-10-21] MEDS: CHOLECALCIFEROL (VIT D3) 1,000 UNITS TABLET PO SCH (08:57)
[2017-10-21] MEDS: FLUTICASONE/VILANTEROL 200-25 MCG/INH INHALER [14] IH SCH (08:57)
[2017-10-21] MEDS: PALIPERIDONE 6 MG ER TABLET PO SCH ×2 (08:57→20:31)
[2017-10-21 09:33] VITALS: BP 125/81
[2017-10-21 16:22] VITALS: BP 130/76
[2017-10-22] MEDS: LEVOTHYROXINE SODIUM 125 MCG TABLET PO SCH ×2 (06:26→06:30)
[2017-10-22 08:00] VITALS: BP 115/72
[2017-10-22] MEDS: PALIPERIDONE 6 MG ER TABLET PO SCH ×2 (09:00→20:24)
[2017-10-22] MEDS: LORazepam 1 MG TABLET PO SCH ×3 (09:44→16:50)
[2017-10-22] MEDS: CHOLECALCIFEROL (VIT D3) 1,000 UNITS TABLET PO SCH (09:44)
[2017-10-22] MEDS: FLUTICASONE/VILANTEROL 200-25 MCG/INH INHALER [14] IH SCH (09:45)
[2017-10-22 16:14] VITALS: BP 124/70
[2017-10-23 06:20] VITALS: BP 126/66
[2017-10-23] MEDS: LEVOTHYROXINE SODIUM 125 MCG TABLET PO SCH (06:30)
[2017-10-23 08:16] VITALS: BP 132/84
[2017-10-23] MEDS: LORazepam 1 MG TABLET PO SCH ×3 (08:41→16:23)
[2017-10-23] MEDS: CHOLECALCIFEROL (VIT D3) 1,000 UNITS TABLET PO SCH (08:42)
[2017-10-23] MEDS: PALIPERIDONE 6 MG ER TABLET PO SCH ×2 (08:42→20:38)
[2017-10-23] MEDS: FLUTICASONE/VILANTEROL 200-25 MCG/INH INHALER [14] IH SCH (08:42)
[2017-10-23 16:59] VITALS: BP 132/86
[2017-10-24] MEDS: LEVOTHYROXINE SODIUM 125 MCG TABLET PO SCH (06:30)
[2017-10-24] MEDS: FLUTICASONE/VILANTEROL 200-25 MCG/INH INHALER [14] IH SCH (08:19)
[2017-10-24] MEDS: LORazepam 1 MG TABLET PO SCH ×3 (08:19→16:02)
[2017-10-24] MEDS: PALIPERIDONE 6 MG ER TABLET PO SCH ×2 (08:19→20:09)
[2017-10-24] MEDS: CHOLECALCIFEROL (VIT D3) 1,000 UNITS TABLET PO SCH (08:19)
[2017-10-24 08:24] VITALS: BP 136/88
[2017-10-24 16:00] VITALS: BP 142/89
[2017-10-25] MEDS: LEVOTHYROXINE SODIUM 125 MCG TABLET PO SCH (06:30)
[2017-10-25] MEDS: PALIPERIDONE 6 MG ER TABLET PO SCH ×2 (09:00→20:51)
[2017-10-25] MEDS: CHOLECALCIFEROL (VIT D3) 1,000 UNITS TABLET PO SCH (09:00)
[2017-10-25] MEDS: FLUTICASONE/VILANTEROL 200-25 MCG/INH INHALER [14] IH SCH (09:32)
[2017-10-25] MEDS: LORazepam 1 MG TABLET PO SCH ×3 (09:32→16:53)
[2017-10-25 09:50] VITALS: BP 115/59
[2017-10-25 16:00] VITALS: BP 146/89
[2017-10-26] MEDS: LEVOTHYROXINE SODIUM 125 MCG TABLET PO SCH (06:39)
[2017-10-26 06:59] VITALS: BP 107/66
[2017-10-26] MEDS: FLUTICASONE/VILANTEROL 200-25 MCG/INH INHALER [14] IH SCH (08:31)
[2017-10-26] MEDS: LORazepam 1 MG TABLET PO SCH ×3 (08:32→16:23)
[2017-10-26] MEDS: CHOLECALCIFEROL (VIT D3) 1,000 UNITS TABLET PO SCH ×2 (08:32→09:00)
[2017-10-26] MEDS: PALIPERIDONE 6 MG ER TABLET PO SCH ×3 (08:32→20:38)
[2017-10-26 09:13] VITALS: BP 105/60
[2017-10-26 16:30] VITALS: BP 135/85
[2017-10-27] MEDS: LEVOTHYROXINE SODIUM 125 MCG TABLET PO SCH (06:17)
[2017-10-27 08:15] VITALS: BP 135/85
[2017-10-27] MEDS: CHOLECALCIFEROL (VIT D3) 1,000 UNITS TABLET PO SCH (09:00)
[2017-10-27] MEDS: PALIPERIDONE 6 MG ER TABLET PO SCH ×2 (09:00→20:31)
[2017-10-27] MEDS: FLUTICASONE/VILANTEROL 200-25 MCG/INH INHALER [14] IH SCH (09:23)
[2017-10-27] MEDS: LORazepam 1 MG TABLET PO SCH ×3 (09:23→16:53)
[2017-10-27 16:00] VITALS: BP 118/74
[2017-10-28] MEDS: LEVOTHYROXINE SODIUM 125 MCG TABLET PO SCH (06:28)
[2017-10-28 06:30] VITALS: BP 113/66
[2017-10-28 08:21] VITALS: BP 126/84
[2017-10-28] MEDS: FLUTICASONE/VILANTEROL 200-25 MCG/INH INHALER [14] IH SCH (08:37)
[2017-10-28] MEDS: LORazepam 1 MG TABLET PO SCH ×3 (08:37→16:31)
[2017-10-28] MEDS: PALIPERIDONE 6 MG ER TABLET PO SCH ×3 (08:37→21:19)
[2017-10-28] MEDS: CHOLECALCIFEROL (VIT D3) 1,000 UNITS TABLET PO SCH (08:37)
[2017-10-28 16:00] VITALS: BP 140/81
[2017-10-29] MEDS: LEVOTHYROXINE SODIUM 125 MCG TABLET PO SCH (06:22)
[2017-10-29 08:19] VITALS: BP 138/78
[2017-10-29] MEDS: CHOLECALCIFEROL (VIT D3) 1,000 UNITS TABLET PO SCH (09:00)
[2017-10-29] MEDS: FLUTICASONE/VILANTEROL 200-25 MCG/INH INHALER [14] IH SCH (09:00)
[2017-10-29] MEDS: PALIPERIDONE 6 MG ER TABLET PO SCH ×2 (09:16→20:02)
[2017-10-29] MEDS: LORazepam 1 MG TABLET PO SCH ×3 (09:17→16:12)
[2017-10-29 16:00] VITALS: BP 132/79
[2017-10-30] MEDS: LEVOTHYROXINE SODIUM 125 MCG TABLET PO SCH (06:30)
[2017-10-30 08:12] VITALS: BP 139/82
[2017-10-30] MEDS: PALIPERIDONE 6 MG ER TABLET PO SCH ×2 (08:24→20:50)
[2017-10-30] MEDS: LORazepam 1 MG TABLET PO SCH ×3 (08:24→16:23)
[2017-10-30] MEDS: CHOLECALCIFEROL (VIT D3) 1,000 UNITS TABLET PO SCH (08:25)
[2017-10-30] MEDS: FLUTICASONE/VILANTEROL 200-25 MCG/INH INHALER [14] IH SCH (08:25)
[2017-10-30 16:10] VITALS: BP 147/80
[2017-10-31] MEDS: LEVOTHYROXINE SODIUM 125 MCG TABLET PO SCH (06:11)
[2017-10-31] MEDS: FLUTICASONE/VILANTEROL 200-25 MCG/INH INHALER [14] IH SCH (09:00)
[2017-10-31] MEDS: CHOLECALCIFEROL (VIT D3) 1,000 UNITS TABLET PO SCH (09:21)
[2017-10-31] MEDS: PALIPERIDONE 6 MG ER TABLET PO SCH ×2 (09:21→21:09)
[2017-10-31] MEDS: LORazepam 1 MG TABLET PO SCH ×3 (09:21→17:17)
[2017-10-31 10:13] VITALS: BP 115/62
[2017-10-31 16:00] VITALS: BP 141/90
[2017-11-01] MEDS: LEVOTHYROXINE SODIUM 125 MCG TABLET PO SCH (06:30)
[2017-11-01 08:19] VITALS: BP 133/81
[2017-11-01] MEDS: PALIPERIDONE 6 MG ER TABLET PO SCH ×2 (08:54→20:14)
[2017-11-01] MEDS: LORazepam 1 MG TABLET PO SCH ×3 (08:54→16:27)
[2017-11-01] MEDS: CHOLECALCIFEROL (VIT D3) 1,000 UNITS TABLET PO SCH (08:55)
[2017-11-01] MEDS: FLUTICASONE/VILANTEROL 200-25 MCG/INH INHALER [14] IH SCH (08:55)
[2017-11-01 16:38] VITALS: BP 134/76
[2017-11-02] MEDS: LEVOTHYROXINE SODIUM 125 MCG TABLET PO SCH (06:22)
[2017-11-02 06:23] VITALS: BP 119/65
[2017-11-02 08:16] VITALS: BP 130/83
[2017-11-02] MEDS: PALIPERIDONE 6 MG ER TABLET PO SCH ×2 (08:53→20:54)
[2017-11-02] MEDS: LORazepam 1 MG TABLET PO SCH ×3 (08:53→16:33)
[2017-11-02] MEDS: CHOLECALCIFEROL (VIT D3) 1,000 UNITS TABLET PO SCH (08:53)
[2017-11-02] MEDS: FLUTICASONE/VILANTEROL 200-25 MCG/INH INHALER [14] IH SCH (09:00)
[2017-11-02 16:00] VITALS: BP 128/88
[2017-11-03 05:27] VITALS: BP 129/85
[2017-11-03] MEDS: LEVOTHYROXINE SODIUM 125 MCG TABLET PO SCH (06:30)
[2017-11-03 08:35] VITALS: BP 137/81
[2017-11-03] MEDS: FLUTICASONE/VILANTEROL 200-25 MCG/INH INHALER [14] IH SCH (09:00)
[2017-11-03] MEDS: PALIPERIDONE 6 MG ER TABLET PO SCH ×2 (09:13→20:36)
[2017-11-03] MEDS: CHOLECALCIFEROL (VIT D3) 1,000 UNITS TABLET PO SCH (09:13)
[2017-11-03] MEDS: LORazepam 1 MG TABLET PO SCH ×3 (09:13→16:58)
[2017-11-03 16:00] VITALS: BP 112/71
[2017-11-04] MEDS: LEVOTHYROXINE SODIUM 125 MCG TABLET PO SCH (06:30)
[2017-11-04 08:03] VITALS: BP 117/67
[2017-11-04] MEDS: LORazepam 1 MG TABLET PO SCH ×3 (08:49→16:50)
[2017-11-04] MEDS: PALIPERIDONE 6 MG ER TABLET PO SCH ×2 (08:49→20:39)
[2017-11-04] MEDS: CHOLECALCIFEROL (VIT D3) 1,000 UNITS TABLET PO SCH (08:50)
[2017-11-04] MEDS: FLUTICASONE/VILANTEROL 200-25 MCG/INH INHALER [14] IH SCH (08:50)
[2017-11-04 16:30] VITALS: BP 121/79
[2017-11-05] MEDS: LEVOTHYROXINE SODIUM 125 MCG TABLET PO SCH (06:13)
[2017-11-05 06:34] VITALS: BP 112/65
[2017-11-05 08:00] VITALS: BP 111/62
[2017-11-05] MEDS: FLUTICASONE/VILANTEROL 200-25 MCG/INH INHALER [14] IH SCH (09:00)
[2017-11-05] MEDS: LORazepam 1 MG TABLET PO SCH ×3 (09:26→16:55)
[2017-11-05] MEDS: PALIPERIDONE 6 MG ER TABLET PO SCH ×2 (09:26→20:40)
[2017-11-05] MEDS: CHOLECALCIFEROL (VIT D3) 1,000 UNITS TABLET PO SCH (09:26)
[2017-11-05 16:30] VITALS: BP 133/85
[2017-11-06] MEDS: LEVOTHYROXINE SODIUM 125 MCG TABLET PO SCH (06:30)
[2017-11-06 08:14] VITALS: BP 126/80
[2017-11-06] MEDS: FLUTICASONE/VILANTEROL 200-25 MCG/INH INHALER [14] IH SCH (09:09)
[2017-11-06] MEDS: LORazepam 1 MG TABLET PO SCH ×3 (09:10→17:21)
[2017-11-06] MEDS: CHOLECALCIFEROL (VIT D3) 1,000 UNITS TABLET PO SCH (09:10)
[2017-11-06] MEDS: PALIPERIDONE 6 MG ER TABLET PO SCH ×2 (09:11→20:42)
[2017-11-06 17:02] VITALS: BP 133/83
[2017-11-07 05:09] VITALS: BP 106/83
[2017-11-07] MEDS: LEVOTHYROXINE SODIUM 125 MCG TABLET PO SCH ×2 (06:08→06:34)
[2017-11-07 08:20] VITALS: BP 126/80
[2017-11-07] MEDS: PALIPERIDONE 6 MG ER TABLET PO SCH ×2 (08:40→20:38)
[2017-11-07] MEDS: CHOLECALCIFEROL (VIT D3) 1,000 UNITS TABLET PO SCH (08:40)
[2017-11-07] MEDS: FLUTICASONE/VILANTEROL 200-25 MCG/INH INHALER [14] IH SCH (09:00)
[2017-11-07] MEDS: LORazepam 1 MG TABLET PO SCH ×3 (09:00→16:23)
[2017-11-07 18:11] VITALS: BP 142/85
[2017-11-08] MEDS: LEVOTHYROXINE SODIUM 200 MCG TABLET PO SCH (06:30)
[2017-11-08 06:38] VITALS: BP 140/69
[2017-11-08 08:31] VITALS: BP 132/74
[2017-11-08] MEDS: FLUTICASONE/VILANTEROL 200-25 MCG/INH INHALER [14] IH SCH (09:00)
[2017-11-08] MEDS: PALIPERIDONE 6 MG ER TABLET PO SCH ×2 (09:42→20:17)
[2017-11-08] MEDS: CHOLECALCIFEROL (VIT D3) 1,000 UNITS TABLET PO SCH (09:42)
[2017-11-08 16:00] VITALS: BP 134/82
[2017-11-09] MEDS: LEVOTHYROXINE SODIUM 200 MCG TABLET PO SCH (06:30)
[2017-11-09 06:57] VITALS: BP 131/90
[2017-11-09 08:00] VITALS: BP 133/86
[2017-11-09] MEDS: CHOLECALCIFEROL (VIT D3) 1,000 UNITS TABLET PO SCH (09:00)
[2017-11-09] MEDS: FLUTICASONE/VILANTEROL 200-25 MCG/INH INHALER [14] IH SCH (09:00)
[2017-11-09] MEDS: PALIPERIDONE 6 MG ER TABLET PO SCH ×2 (09:00→20:18)
[2017-11-09 09:12] LABS: CALCIUM, TOTAL 9.3 mg/dL (8.8-10.5); CREATININE 1.26 mg/dL (0.60-1.30); THYROID STIMULATING HORMONE 52.59 uIU/mL (0.36-3.74)
[2017-11-09] MEDS ORDERED: LORazepam 2 MG/ML VIAL IM ONE ×2 (09:30→11:45)
[2017-11-09] MEDS ORDERED: HALOPERIDOL LACTATE 5 MG/ML VIAL IM ONE (11:45)
[2017-11-09] MEDS ORDERED: DiphenhydrAMINE HCL 50 MG/ML VIAL IM ONE (11:45)
[2017-11-09 16:23] VITALS: BP 140/81
[2017-11-10] MEDS: LEVOTHYROXINE SODIUM 200 MCG TABLET PO SCH (06:30)
[2017-11-10 08:00] VITALS: BP 117/67
[2017-11-10 08:35] LABS: FREE T4 (FREE THYROXINE) 0.69 ng/dL (0.76-1.46); THYROID STIMULATING HORMONE 39.07 uIU/mL (0.36-3.74)
[2017-11-10] MEDS: FLUTICASONE/VILANTEROL 200-25 MCG/INH INHALER [14] IH SCH (08:53)
[2017-11-10] MEDS: CHOLECALCIFEROL (VIT D3) 1,000 UNITS TABLET PO SCH (08:53)
[2017-11-10] MEDS: PALIPERIDONE 6 MG ER TABLET PO SCH ×2 (08:53→20:07)
[2017-11-10 16:49] VITALS: BP 123/75
[2017-11-11 03:24] VITALS: BP 123/69
[2017-11-11] MEDS: LEVOTHYROXINE SODIUM 200 MCG TABLET PO SCH ×2 (06:29→10:02)
[2017-11-11 08:01] LABS: FREE T4 (FREE THYROXINE) 0.64 ng/dL (0.76-1.46); THYROID STIMULATING HORMONE 45.67 uIU/mL (0.36-3.74)
[2017-11-11 08:20] VITALS: BP 128/84
[2017-11-11] MEDS: FLUTICASONE/VILANTEROL 200-25 MCG/INH INHALER [14] IH SCH (09:00)
[2017-11-11] MEDS: CHOLECALCIFEROL (VIT D3) 1,000 UNITS TABLET PO SCH (09:00)
[2017-11-11] MEDS: PALIPERIDONE 6 MG ER TABLET PO SCH ×2 (09:45→20:33)
[2017-11-11 16:00] VITALS: BP 140/84
[2017-11-12] MEDS: LEVOTHYROXINE SODIUM 200 MCG TABLET PO SCH (06:44)
[2017-11-12 08:00] VITALS: BP 128/86
[2017-11-12] MEDS: CHOLECALCIFEROL (VIT D3) 1,000 UNITS TABLET PO SCH (09:00)
[2017-11-12] MEDS: FLUTICASONE/VILANTEROL 200-25 MCG/INH INHALER [14] IH SCH (09:00)
[2017-11-12] MEDS: PALIPERIDONE 6 MG ER TABLET PO SCH ×2 (09:16→20:56)
[2017-11-12 16:00] VITALS: BP 146/86
[2017-11-13 02:35] VITALS: BP 113/69
[2017-11-13] MEDS: LEVOTHYROXINE SODIUM 200 MCG TABLET PO SCH (06:31)
[2017-11-13 08:17] LABS: FREE T4 (FREE THYROXINE) 0.79 ng/dL (0.76-1.46); THYROID STIMULATING HORMONE 32.82 uIU/mL (0.36-3.74)
[2017-11-13 08:31] VITALS: BP 118/67
[2017-11-13] MEDS: CHOLECALCIFEROL (VIT D3) 1,000 UNITS TABLET PO SCH (08:55)
[2017-11-13] MEDS: PALIPERIDONE 6 MG ER TABLET PO SCH ×2 (08:55→20:27)
[2017-11-13] MEDS: FLUTICASONE/VILANTEROL 200-25 MCG/INH INHALER [14] IH SCH (08:55)
[2017-11-13 16:00] VITALS: BP 140/83
[2017-11-14] MEDS: LEVOTHYROXINE SODIUM 200 MCG TABLET PO SCH (06:45)
[2017-11-14 08:00] VITALS: BP 124/76
[2017-11-14] MEDS: CHOLECALCIFEROL (VIT D3) 1,000 UNITS TABLET PO SCH (09:00)
[2017-11-14] MEDS: FLUTICASONE/VILANTEROL 200-25 MCG/INH INHALER [14] IH SCH (09:00)
[2017-11-14] MEDS: PALIPERIDONE 6 MG ER TABLET PO SCH ×2 (09:49→21:31)
[2017-11-14 16:13] VITALS: BP 138/83
[2017-11-15] MEDS: LEVOTHYROXINE SODIUM 200 MCG TABLET PO SCH (06:01)
[2017-11-15 06:10] VITALS: BP 128/68
[2017-11-15 08:14] VITALS: BP 126/82
[2017-11-15] MEDS: FLUTICASONE/VILANTEROL 200-25 MCG/INH INHALER [14] IH SCH (09:00)
[2017-11-15] MEDS: CHOLECALCIFEROL (VIT D3) 1,000 UNITS TABLET PO SCH (09:00)
[2017-11-15] MEDS: PALIPERIDONE 6 MG ER TABLET PO SCH ×2 (10:15→20:34)
[2017-11-15] MEDS: PALIPERIDONE PALMITATE 234 MG/1.5 ML SYRINGE IM SCH (10:42)
[2017-11-15 16:00] VITALS: BP 140/89
[2017-11-16] MEDS: LEVOTHYROXINE SODIUM 200 MCG TABLET PO SCH (06:51)
[2017-11-16] MEDS: CHOLECALCIFEROL (VIT D3) 1,000 UNITS TABLET PO SCH (08:44)
[2017-11-16] MEDS: FLUTICASONE/VILANTEROL 200-25 MCG/INH INHALER [14] IH SCH (08:44)
[2017-11-16] MEDS: PALIPERIDONE 6 MG ER TABLET PO SCH ×2 (08:45→20:29)
[2017-11-16 09:18] VITALS: BP 115/70
[2017-11-16] MEDS ORDERED: QUEtiapine FUMARATE 100 MG TABLET PO PRN (13:00)
[2017-11-16 16:30] VITALS: BP 158/75
[2017-11-16] MEDS: ClonazePAM 1 MG TABLET PO SCH (17:24)
[2017-11-17] MEDS: LEVOTHYROXINE SODIUM 200 MCG TABLET PO SCH (06:57)
[2017-11-17 07:20] LABS: FREE T4 (FREE THYROXINE) 0.94 ng/dL (0.76-1.46); THYROID STIMULATING HORMONE 20.99 uIU/mL (0.36-3.74)
[2017-11-17] MEDS: FLUTICASONE/VILANTEROL 200-25 MCG/INH INHALER [14] IH SCH (08:53)
[2017-11-17] MEDS: CHOLECALCIFEROL (VIT D3) 1,000 UNITS TABLET PO SCH (08:53)
[2017-11-17] MEDS: PALIPERIDONE 6 MG ER TABLET PO SCH ×2 (08:53→20:57)
[2017-11-17] MEDS: ClonazePAM 1 MG TABLET PO SCH ×3 (08:53→17:24)
[2017-11-17 09:19] VITALS: BP 114/74
[2017-11-17] MEDS: NICOTINE 21 MG/24 HOUR PATCH TD SCH (12:53)
[2017-11-18] MEDS: LEVOTHYROXINE SODIUM 200 MCG TABLET PO SCH (06:41)
[2017-11-18] MEDS: ClonazePAM 1 MG TABLET PO SCH ×3 (08:43→16:33)
[2017-11-18] MEDS: CHOLECALCIFEROL (VIT D3) 1,000 UNITS TABLET PO SCH (08:44)
[2017-11-18] MEDS: NICOTINE 21 MG/24 HOUR PATCH TD SCH (08:44)
[2017-11-18] MEDS: PALIPERIDONE 6 MG ER TABLET PO SCH ×2 (08:45→20:13)
[2017-11-18] MEDS: FLUTICASONE/VILANTEROL 200-25 MCG/INH INHALER [14] IH SCH (08:46)
[2017-11-19] MEDS: LEVOTHYROXINE SODIUM 200 MCG TABLET PO SCH (06:50)
[2017-11-19] MEDS: ClonazePAM 1 MG TABLET PO SCH ×3 (08:49→16:17)
[2017-11-19] MEDS: CHOLECALCIFEROL (VIT D3) 1,000 UNITS TABLET PO SCH (08:50)
[2017-11-19] MEDS: PALIPERIDONE 6 MG ER TABLET PO SCH ×2 (08:50→20:49)
[2017-11-19] MEDS: FLUTICASONE/VILANTEROL 200-25 MCG/INH INHALER [14] IH SCH (08:51)
[2017-11-19] MEDS: NICOTINE 21 MG/24 HOUR PATCH TD SCH (08:51)
[2017-11-19 16:58] VITALS: BP 131/89
[2017-11-20] MEDS: LEVOTHYROXINE SODIUM 200 MCG TABLET PO SCH (07:10)
[2017-11-20 07:32] LABS: FREE T4 (FREE THYROXINE) 1.05 ng/dL (0.76-1.46); THYROID STIMULATING HORMONE 10.3 uIU/mL (0.36-3.74)
[2017-11-20 08:45] VITALS: BP 113/77
[2017-11-20] MEDS: PALIPERIDONE 6 MG ER TABLET PO SCH ×2 (09:35→20:26)
[2017-11-20] MEDS: FLUTICASONE/VILANTEROL 200-25 MCG/INH INHALER [14] IH SCH (09:37)
[2017-11-20] MEDS: ClonazePAM 1 MG TABLET PO SCH ×3 (09:37→16:13)
[2017-11-20] MEDS: CHOLECALCIFEROL (VIT D3) 1,000 UNITS TABLET PO SCH (09:37)
[2017-11-20] MEDS: NICOTINE 21 MG/24 HOUR PATCH TD SCH (09:38)
[2017-11-20 16:00] VITALS: BP 128/91
[2017-11-21] MEDS: LEVOTHYROXINE SODIUM 200 MCG TABLET PO SCH (06:33)
[2017-11-21] MEDS: CHOLECALCIFEROL (VIT D3) 1,000 UNITS TABLET PO SCH (08:45)
[2017-11-21] MEDS: PALIPERIDONE 6 MG ER TABLET PO SCH ×2 (08:45→21:43)
[2017-11-21] MEDS: FLUTICASONE/VILANTEROL 200-25 MCG/INH INHALER [14] IH SCH (08:45)
[2017-11-21] MEDS: ClonazePAM 1 MG TABLET PO SCH ×3 (08:45→17:28)
[2017-11-21] MEDS: NICOTINE 21 MG/24 HOUR PATCH TD SCH (08:51)
[2017-11-21 16:35] VITALS: BP 121/79
[2017-11-22] MEDS: LEVOTHYROXINE SODIUM 200 MCG TABLET PO SCH (07:06)
[2017-11-22] MEDS: FLUTICASONE/VILANTEROL 200-25 MCG/INH INHALER [14] IH SCH (08:46)
[2017-11-22] MEDS: ClonazePAM 1 MG TABLET PO SCH ×3 (08:47→16:15)
[2017-11-22] MEDS: CHOLECALCIFEROL (VIT D3) 5,000 UNITS CAPSULE PO SCH (08:47)
[2017-11-22] MEDS: PALIPERIDONE 6 MG ER TABLET PO SCH ×2 (08:47→20:50)
[2017-11-22] MEDS: NICOTINE 21 MG/24 HOUR PATCH TD SCH (08:49)
[2017-11-22 08:54] VITALS: BP 135/96
[2017-11-22 16:24] VITALS: BP 124/86
[2017-11-23] MEDS: LEVOTHYROXINE SODIUM 200 MCG TABLET PO SCH (06:55)
[2017-11-23 07:31] LABS: FREE T4 (FREE THYROXINE) 1.13 ng/dL (0.76-1.46); THYROID STIMULATING HORMONE 4.31 uIU/mL (0.36-3.74)
[2017-11-23 08:47] VITALS: BP 136/93
[2017-11-23] MEDS: ClonazePAM 1 MG TABLET PO SCH ×3 (08:50→16:33)
[2017-11-23] MEDS: FLUTICASONE/VILANTEROL 200-25 MCG/INH INHALER [14] IH SCH (08:50)
[2017-11-23] MEDS: PALIPERIDONE 6 MG ER TABLET PO SCH ×2 (08:50→20:23)
[2017-11-23] MEDS: NICOTINE 21 MG/24 HOUR PATCH TD SCH (08:51)
[2017-11-23] MEDS: CHOLECALCIFEROL (VIT D3) 5,000 UNITS CAPSULE PO SCH (08:51)
[2017-11-23 20:53] VITALS: BP 118/79
[2017-11-24] MEDS: LEVOTHYROXINE SODIUM 200 MCG TABLET PO SCH (06:42)
[2017-11-24 08:25] VITALS: BP 118/88
[2017-11-24] MEDS: ClonazePAM 1 MG TABLET PO SCH ×3 (08:51→16:13)
[2017-11-24] MEDS: PALIPERIDONE 6 MG ER TABLET PO SCH ×2 (08:52→22:00)
[2017-11-24] MEDS: FLUTICASONE/VILANTEROL 200-25 MCG/INH INHALER [14] IH SCH (08:53)
[2017-11-24] MEDS: NICOTINE 21 MG/24 HOUR PATCH TD SCH (08:54)
[2017-11-24] MEDS: CHOLECALCIFEROL (VIT D3) 5,000 UNITS CAPSULE PO SCH (08:54)
[2017-11-24 19:59] VITALS: BP 123/80
[2017-11-25] MEDS: LEVOTHYROXINE SODIUM 200 MCG TABLET PO SCH (06:54)
[2017-11-25 08:00] VITALS: BP 107/77
[2017-11-25] MEDS: CHOLECALCIFEROL (VIT D3) 5,000 UNITS CAPSULE PO SCH (09:13)
[2017-11-25] MEDS: ClonazePAM 1 MG TABLET PO SCH ×3 (09:13→16:17)
[2017-11-25] MEDS: PALIPERIDONE 6 MG ER TABLET PO SCH ×2 (09:13→21:45)
[2017-11-25] MEDS: NICOTINE 21 MG/24 HOUR PATCH TD SCH (09:15)
[2017-11-25] MEDS: FLUTICASONE/VILANTEROL 200-25 MCG/INH INHALER [14] IH SCH (09:16)
[2017-11-25 17:00] VITALS: BP 130/96
[2017-11-26 03:55] VITALS: BP 151/93
[2017-11-26] MEDS: LEVOTHYROXINE SODIUM 200 MCG TABLET PO SCH (06:38)
[2017-11-26] MEDS: NICOTINE 21 MG/24 HOUR PATCH TD SCH (08:41)
[2017-11-26] MEDS: FLUTICASONE/VILANTEROL 200-25 MCG/INH INHALER [14] IH SCH (08:41)
[2017-11-26] MEDS: CHOLECALCIFEROL (VIT D3) 5,000 UNITS CAPSULE PO SCH (08:41)
[2017-11-26] MEDS: PALIPERIDONE 6 MG ER TABLET PO SCH ×2 (08:41→20:16)
[2017-11-26] MEDS: ClonazePAM 1 MG TABLET PO SCH ×3 (08:42→17:00)
[2017-11-26 11:05] VITALS: BP 134/85
[2017-11-26 17:30] VITALS: BP 142/93
[2017-11-27] MEDS: LEVOTHYROXINE SODIUM 200 MCG TABLET PO SCH (07:01)
[2017-11-27 08:05] VITALS: BP 162/92
[2017-11-27] MEDS: PALIPERIDONE 6 MG ER TABLET PO SCH ×2 (08:51→20:16)
[2017-11-27] MEDS: NICOTINE 21 MG/24 HOUR PATCH TD SCH (08:53)
[2017-11-27] MEDS: CHOLECALCIFEROL (VIT D3) 5,000 UNITS CAPSULE PO SCH (09:00)
[2017-11-27] MEDS: ClonazePAM 1 MG TABLET PO SCH ×3 (09:00→17:00)
[2017-11-27] MEDS: FLUTICASONE/VILANTEROL 200-25 MCG/INH INHALER [14] IH SCH (09:00)
[2017-11-27 17:02] VITALS: BP 155/95
[2017-11-28] MEDS: LEVOTHYROXINE SODIUM 200 MCG TABLET PO SCH (06:55)
[2017-11-28 08:00] VITALS: BP 118/80
[2017-11-28] MEDS: CHOLECALCIFEROL (VIT D3) 5,000 UNITS CAPSULE PO SCH ×2 (09:00→10:48)
[2017-11-28] MEDS: NICOTINE 21 MG/24 HOUR PATCH TD SCH ×2 (09:00→10:50)
[2017-11-28] MEDS: ClonazePAM 1 MG TABLET PO SCH ×4 (09:00→16:15)
[2017-11-28] MEDS: PALIPERIDONE 6 MG ER TABLET PO SCH ×2 (10:48→20:37)
[2017-11-28] MEDS: FLUTICASONE/VILANTEROL 200-25 MCG/INH INHALER [14] IH SCH (10:49)
[2017-11-28 16:20] VITALS: BP 149/94
[2017-11-29 05:50] VITALS: BP 133/79
[2017-11-29] MEDS: LEVOTHYROXINE SODIUM 200 MCG TABLET PO SCH (06:54)
[2017-11-29 08:05] VITALS: BP 157/92
[2017-11-29] MEDS: CHOLECALCIFEROL (VIT D3) 5,000 UNITS CAPSULE PO SCH (09:00)
[2017-11-29] MEDS: NICOTINE 21 MG/24 HOUR PATCH TD SCH (09:00)
[2017-11-29] MEDS: FLUTICASONE/VILANTEROL 200-25 MCG/INH INHALER [14] IH SCH (09:00)
[2017-11-29] MEDS: ClonazePAM 1 MG TABLET PO SCH ×3 (09:00→17:00)
[2017-11-29] MEDS: PALIPERIDONE 6 MG ER TABLET PO SCH ×2 (09:18→20:48)
[2017-11-29 21:42] VITALS: BP 145/80
[2017-11-30] MEDS: LEVOTHYROXINE SODIUM 200 MCG TABLET PO SCH (06:53)
[2017-11-30] MEDS: ClonazePAM 1 MG TABLET PO SCH ×3 (09:00→17:55)
[2017-11-30] MEDS: FLUTICASONE/VILANTEROL 200-25 MCG/INH INHALER [14] IH SCH (09:00)
[2017-11-30] MEDS: CHOLECALCIFEROL (VIT D3) 5,000 UNITS CAPSULE PO SCH (09:00)
[2017-11-30] MEDS: PALIPERIDONE 6 MG ER TABLET PO SCH ×2 (09:21→20:44)
[2017-11-30] MEDS: NICOTINE 21 MG/24 HOUR PATCH TD SCH (10:04)
[2017-11-30 14:57] VITALS: BP 106/60
[2017-11-30 17:30] VITALS: BP 130/81
[2017-12-01] MEDS: LEVOTHYROXINE SODIUM 200 MCG TABLET PO SCH (06:37)
[2017-12-01 08:05] VITALS: BP 154/86
[2017-12-01] MEDS: CHOLECALCIFEROL (VIT D3) 5,000 UNITS CAPSULE PO SCH ×2 (08:53→09:00)
[2017-12-01] MEDS: PALIPERIDONE 6 MG ER TABLET PO SCH ×2 (08:53→20:34)
[2017-12-01] MEDS: ClonazePAM 1 MG TABLET PO SCH ×2 (08:55→12:39)
[2017-12-01] MEDS: NICOTINE 21 MG/24 HOUR PATCH TD SCH (08:55)
[2017-12-01] MEDS: FLUTICASONE/VILANTEROL 200-25 MCG/INH INHALER [14] IH SCH (08:55)
[2017-12-01] MEDS: ClonazePAM 0.5 MG TABLET PO SCH (16:34)
[2017-12-01 17:08] VITALS: BP 165/97
[2017-12-02] MEDS: LEVOTHYROXINE SODIUM 200 MCG TABLET PO SCH (06:56)
[2017-12-02] MEDS: ClonazePAM 0.5 MG TABLET PO SCH ×3 (08:52→16:11)
[2017-12-02] MEDS: PALIPERIDONE 6 MG ER TABLET PO SCH ×2 (08:52→20:02)
[2017-12-02] MEDS: NICOTINE 21 MG/24 HOUR PATCH TD SCH (08:52)
[2017-12-02] MEDS: CHOLECALCIFEROL (VIT D3) 5,000 UNITS CAPSULE PO SCH (08:52)
[2017-12-02] MEDS: FLUTICASONE/VILANTEROL 200-25 MCG/INH INHALER [14] IH SCH (11:35)
[2017-12-02 16:46] VITALS: BP 121/96
[2017-12-03] MEDS: LEVOTHYROXINE SODIUM 200 MCG TABLET PO SCH (06:57)
[2017-12-03] MEDS: CHOLECALCIFEROL (VIT D3) 5,000 UNITS CAPSULE PO SCH (09:00)
[2017-12-03] MEDS: FLUTICASONE/VILANTEROL 200-25 MCG/INH INHALER [14] IH SCH (09:00)
[2017-12-03] MEDS: NICOTINE 21 MG/24 HOUR PATCH TD SCH (09:00)
[2017-12-03 09:49] VITALS: BP 105/60
[2017-12-03] MEDS: ClonazePAM 0.5 MG TABLET PO SCH ×3 (10:31→16:25)
[2017-12-03] MEDS: PALIPERIDONE 6 MG ER TABLET PO SCH ×2 (10:31→20:51)
[2017-12-03 17:18] VITALS: BP 121/61
[2017-12-04] MEDS: LEVOTHYROXINE SODIUM 200 MCG TABLET PO SCH (06:39)
[2017-12-04] MEDS: FLUTICASONE/VILANTEROL 200-25 MCG/INH INHALER [14] IH SCH (09:00)
[2017-12-04] MEDS: ClonazePAM 0.5 MG TABLET PO SCH ×3 (09:14→17:08)
[2017-12-04] MEDS: PALIPERIDONE 6 MG ER TABLET PO SCH ×2 (09:14→21:13)
[2017-12-04] MEDS: NICOTINE 21 MG/24 HOUR PATCH TD SCH ×2 (09:14→12:49)
[2017-12-04] MEDS: CHOLECALCIFEROL (VIT D3) 5,000 UNITS CAPSULE PO SCH (09:14)
[2017-12-04 11:50] VITALS: BP 127/92
[2017-12-04 16:33] VITALS: BP 145/78
[2017-12-05] MEDS: LEVOTHYROXINE SODIUM 200 MCG TABLET PO SCH (06:54)
[2017-12-05] MEDS: CHOLECALCIFEROL (VIT D3) 5,000 UNITS CAPSULE PO SCH (08:39)
[2017-12-05] MEDS: PALIPERIDONE 6 MG ER TABLET PO SCH ×2 (08:39→20:14)
[2017-12-05] MEDS: ClonazePAM 0.5 MG TABLET PO SCH ×3 (08:39→16:15)
[2017-12-05] MEDS: FLUTICASONE/VILANTEROL 200-25 MCG/INH INHALER [14] IH SCH (09:00)
[2017-12-05 09:20] VITALS: BP 154/76
[2017-12-05] MEDS: NICOTINE 21 MG/24 HOUR PATCH TD SCH (14:08)
[2017-12-05 16:26] VITALS: BP 142/87
[2017-12-06 02:00] VITALS: BP 140/89
[2017-12-06] MEDS: LEVOTHYROXINE SODIUM 200 MCG TABLET PO SCH (06:44)
[2017-12-06] MEDS: PALIPERIDONE 6 MG ER TABLET PO SCH ×2 (08:35→21:08)
[2017-12-06] MEDS: CHOLECALCIFEROL (VIT D3) 5,000 UNITS CAPSULE PO SCH (08:35)
[2017-12-06] MEDS: ClonazePAM 0.5 MG TABLET PO SCH ×3 (08:36→16:32)
[2017-12-06] MEDS: NICOTINE 21 MG/24 HOUR PATCH TD SCH ×2 (08:40→09:19)
[2017-12-06] MEDS: FLUTICASONE/VILANTEROL 200-25 MCG/INH INHALER [14] IH SCH (08:40)
[2017-12-06 09:25] VITALS: BP 109/65
[2017-12-06 16:15] VITALS: BP 133/79
[2017-12-07] MEDS: LEVOTHYROXINE SODIUM 200 MCG TABLET PO SCH (06:50)
[2017-12-07] MEDS: FLUTICASONE/VILANTEROL 200-25 MCG/INH INHALER [14] IH SCH (09:00)
[2017-12-07] MEDS: ClonazePAM 0.5 MG TABLET PO SCH ×3 (09:00→17:55)
[2017-12-07] MEDS: PALIPERIDONE 6 MG ER TABLET PO SCH ×2 (09:01→20:57)
[2017-12-07] MEDS: CHOLECALCIFEROL (VIT D3) 5,000 UNITS CAPSULE PO SCH (09:01)
[2017-12-07] MEDS: NICOTINE 21 MG/24 HOUR PATCH TD SCH (09:02)
[2017-12-07 11:14] VITALS: BP 128/81
[2017-12-07 18:29] VITALS: BP 136/88
[2017-12-08] MEDS: LEVOTHYROXINE SODIUM 200 MCG TABLET PO SCH (06:27)
[2017-12-08 08:47] VITALS: BP 124/82
[2017-12-08] MEDS: CHOLECALCIFEROL (VIT D3) 5,000 UNITS CAPSULE PO SCH (08:52)
[2017-12-08] MEDS: PALIPERIDONE 6 MG ER TABLET PO SCH ×2 (08:52→20:06)
[2017-12-08] MEDS: NICOTINE 21 MG/24 HOUR PATCH TD SCH (08:54)
[2017-12-08] MEDS: ClonazePAM 0.5 MG TABLET PO SCH ×3 (09:00→16:28)
[2017-12-08] MEDS: FLUTICASONE/VILANTEROL 200-25 MCG/INH INHALER [14] IH SCH (09:00)
[2017-12-08 21:48] VITALS: BP 142/83
[2017-12-09] MEDS: LEVOTHYROXINE SODIUM 200 MCG TABLET PO SCH (07:00)
[2017-12-09 08:30] VITALS: BP 93/61
[2017-12-09] MEDS: ClonazePAM 0.5 MG TABLET PO SCH ×3 (09:00→15:59)
[2017-12-09] MEDS: NICOTINE 21 MG/24 HOUR PATCH TD SCH (09:00)
[2017-12-09] MEDS: FLUTICASONE/VILANTEROL 200-25 MCG/INH INHALER [14] IH SCH (09:00)
[2017-12-09] MEDS: CHOLECALCIFEROL (VIT D3) 5,000 UNITS CAPSULE PO SCH (09:08)
[2017-12-09] MEDS: PALIPERIDONE 6 MG ER TABLET PO SCH ×2 (09:08→20:01)
[2017-12-09 17:16] VITALS: BP 151/91
[2017-12-10] MEDS: LEVOTHYROXINE SODIUM 200 MCG TABLET PO SCH (06:55)
[2017-12-10 08:30] VITALS: BP 101/70
[2017-12-10] MEDS: ClonazePAM 0.5 MG TABLET PO SCH ×3 (09:00→16:11)
[2017-12-10] MEDS: FLUTICASONE/VILANTEROL 200-25 MCG/INH INHALER [14] IH SCH (09:00)
[2017-12-10] MEDS: NICOTINE 21 MG/24 HOUR PATCH TD SCH (09:00)
[2017-12-10] MEDS: CHOLECALCIFEROL (VIT D3) 5,000 UNITS CAPSULE PO SCH (09:59)
[2017-12-10] MEDS: PALIPERIDONE 6 MG ER TABLET PO SCH ×2 (09:59→20:06)
[2017-12-10 16:11] VITALS: BP 140/92
[2017-12-11] MEDS: LEVOTHYROXINE SODIUM 200 MCG TABLET PO SCH (06:45)
[2017-12-11] MEDS: ClonazePAM 0.5 MG TABLET PO SCH ×3 (09:00→17:00)
[2017-12-11] MEDS: NICOTINE 21 MG/24 HOUR PATCH TD SCH (09:00)
[2017-12-11] MEDS: FLUTICASONE/VILANTEROL 200-25 MCG/INH INHALER [14] IH SCH (09:00)
[2017-12-11] MEDS: PALIPERIDONE 6 MG ER TABLET PO SCH ×2 (09:09→20:37)
[2017-12-11] MEDS: CHOLECALCIFEROL (VIT D3) 5,000 UNITS CAPSULE PO SCH (09:09)
[2017-12-11 09:27] VITALS: BP 124/76
[2017-12-11 16:59] VITALS: BP 145/89
[2017-12-12] MEDS: LEVOTHYROXINE SODIUM 200 MCG TABLET PO SCH (06:55)
[2017-12-12 08:00] VITALS: BP 151/93
[2017-12-12] MEDS: LORazepam 2 MG TABLET PO PRN ×3 (08:05→16:49)
[2017-12-12] MEDS: FLUTICASONE/VILANTEROL 200-25 MCG/INH INHALER [14] IH SCH (08:06)
[2017-12-12] MEDS: NICOTINE 21 MG/24 HOUR PATCH TD SCH (08:06)
[2017-12-12] MEDS: ClonazePAM 0.5 MG TABLET PO SCH ×4 (08:06→16:40)
[2017-12-12] MEDS: CHOLECALCIFEROL (VIT D3) 5,000 UNITS CAPSULE PO SCH (08:06)
[2017-12-12] MEDS: PALIPERIDONE 6 MG ER TABLET PO SCH ×2 (08:06→20:32)
[2017-12-12 16:18] VITALS: BP 135/84
[2017-12-13 02:09] VITALS: BP 148/91
[2017-12-13] MEDS: LEVOTHYROXINE SODIUM 200 MCG TABLET PO SCH (06:35)
[2017-12-13] MEDS: ClonazePAM 0.5 MG TABLET PO SCH ×3 (09:00→16:32)
[2017-12-13] MEDS: FLUTICASONE/VILANTEROL 200-25 MCG/INH INHALER [14] IH SCH (09:00)
[2017-12-13] MEDS: CHOLECALCIFEROL (VIT D3) 5,000 UNITS CAPSULE PO SCH ×2 (09:00→14:07)
[2017-12-13] MEDS: PALIPERIDONE 6 MG ER TABLET PO SCH ×2 (10:04→21:06)
[2017-12-13] MEDS: LORazepam 2 MG TABLET PO PRN ×2 (10:04→17:48)
[2017-12-13] MEDS: NICOTINE 21 MG/24 HOUR PATCH TD SCH (10:05)
[2017-12-13] MEDS: PALIPERIDONE PALMITATE 234 MG/1.5 ML SYRINGE IM SCH (10:05)
[2017-12-13 17:15] VITALS: BP 159/88
[2017-12-14] MEDS: LEVOTHYROXINE SODIUM 200 MCG TABLET PO SCH (06:53)
[2017-12-14 08:00] VITALS: BP 138/78
[2017-12-14] MEDS: ClonazePAM 0.5 MG TABLET PO SCH ×4 (09:00→17:00)
[2017-12-14] MEDS: FLUTICASONE/VILANTEROL 200-25 MCG/INH INHALER [14] IH SCH ×2 (09:00→09:18)
[2017-12-14] MEDS: CHOLECALCIFEROL (VIT D3) 5,000 UNITS CAPSULE PO SCH (09:16)
[2017-12-14] MEDS: PALIPERIDONE 6 MG ER TABLET PO SCH ×2 (09:16→20:59)
[2017-12-14] MEDS: NICOTINE 21 MG/24 HOUR PATCH TD SCH (09:17)
[2017-12-14] MEDS: LORazepam 2 MG TABLET PO PRN (16:06)
[2017-12-14 19:22] VITALS: BP 131/79
[2017-12-15] MEDS: LEVOTHYROXINE SODIUM 200 MCG TABLET PO SCH (06:40)
[2017-12-15 08:00] VITALS: BP 118/73
[2017-12-15] MEDS: ClonazePAM 0.5 MG TABLET PO SCH ×3 (09:00→16:04)
[2017-12-15] MEDS: FLUTICASONE/VILANTEROL 200-25 MCG/INH INHALER [14] IH SCH (09:00)
[2017-12-15] MEDS: LORazepam 2 MG TABLET PO PRN (09:15)
[2017-12-15] MEDS: PALIPERIDONE 6 MG ER TABLET PO SCH ×2 (09:15→20:21)
[2017-12-15] MEDS: CHOLECALCIFEROL (VIT D3) 5,000 UNITS CAPSULE PO SCH (09:15)
[2017-12-15] MEDS: NICOTINE 21 MG/24 HOUR PATCH TD SCH (09:17)
[2017-12-15] MEDS: GABAPENTIN 300 MG CAPSULE PO SCH (16:04)
[2017-12-15 17:05] VITALS: BP 143/89
[2017-12-16] MEDS: LEVOTHYROXINE SODIUM 200 MCG TABLET PO SCH (07:00)
[2017-12-16 08:15] VITALS: BP 134/72
[2017-12-16] MEDS: ClonazePAM 0.5 MG TABLET PO SCH ×3 (08:51→16:58)
[2017-12-16] MEDS: CHOLECALCIFEROL (VIT D3) 5,000 UNITS CAPSULE PO SCH (08:51)
[2017-12-16] MEDS: PALIPERIDONE 6 MG ER TABLET PO SCH ×2 (08:51→21:12)
[2017-12-16] MEDS: GABAPENTIN 300 MG CAPSULE PO SCH ×2 (08:51→16:58)
[2017-12-16] MEDS: NICOTINE 21 MG/24 HOUR PATCH TD SCH (08:53)
[2017-12-16] MEDS: FLUTICASONE/VILANTEROL 200-25 MCG/INH INHALER [14] IH SCH (08:54)
[2017-12-16 16:30] VITALS: BP 125/77
[2017-12-17] MEDS: LEVOTHYROXINE SODIUM 200 MCG TABLET PO SCH (07:00)
[2017-12-17 08:05] VITALS: BP 116/71
[2017-12-17] MEDS: FLUTICASONE/VILANTEROL 200-25 MCG/INH INHALER [14] IH SCH (09:00)
[2017-12-17] MEDS: CHOLECALCIFEROL (VIT D3) 5,000 UNITS CAPSULE PO SCH (09:22)
[2017-12-17] MEDS: ClonazePAM 0.5 MG TABLET PO SCH ×3 (09:22→16:44)
[2017-12-17] MEDS: PALIPERIDONE 6 MG ER TABLET PO SCH ×2 (09:22→20:39)
[2017-12-17] MEDS: GABAPENTIN 300 MG CAPSULE PO SCH ×2 (09:22→16:44)
[2017-12-17] MEDS: NICOTINE 21 MG/24 HOUR PATCH TD SCH (09:24)
[2017-12-17 16:48] VITALS: BP 114/66
[2017-12-18] MEDS: LEVOTHYROXINE SODIUM 200 MCG TABLET PO SCH (06:25)
[2017-12-18] MEDS: CHOLECALCIFEROL (VIT D3) 5,000 UNITS CAPSULE PO SCH (08:56)
[2017-12-18] MEDS: PALIPERIDONE 6 MG ER TABLET PO SCH ×2 (08:56→20:08)
[2017-12-18] MEDS: ClonazePAM 0.5 MG TABLET PO SCH ×3 (08:56→16:18)
[2017-12-18] MEDS: GABAPENTIN 300 MG CAPSULE PO SCH ×2 (08:56→16:18)
[2017-12-18] MEDS: NICOTINE 21 MG/24 HOUR PATCH TD SCH (08:58)
[2017-12-18 09:42] VITALS: BP 115/77
[2017-12-18] MEDS: FLUTICASONE/VILANTEROL 200-25 MCG/INH INHALER [14] IH SCH (10:43)
[2017-12-18 22:49] VITALS: BP 139/92
[2017-12-19] MEDS: LEVOTHYROXINE SODIUM 200 MCG TABLET PO SCH (06:50)
[2017-12-19] MEDS: PALIPERIDONE 6 MG ER TABLET PO SCH ×2 (08:52→21:36)
[2017-12-19] MEDS: CHOLECALCIFEROL (VIT D3) 5,000 UNITS CAPSULE PO SCH (08:52)
[2017-12-19] MEDS: GABAPENTIN 300 MG CAPSULE PO SCH ×2 (08:52→16:13)
[2017-12-19] MEDS: ClonazePAM 0.5 MG TABLET PO SCH ×3 (08:52→16:13)
[2017-12-19] MEDS: NICOTINE 21 MG/24 HOUR PATCH TD SCH (08:54)
[2017-12-19] MEDS: FLUTICASONE/VILANTEROL 200-25 MCG/INH INHALER [14] IH SCH (09:00)
[2017-12-19 10:48] VITALS: BP 117/74
[2017-12-19 16:25] VITALS: BP 134/92
[2017-12-19] MEDS ORDERED: DiphenhydrAMINE HCL 50 MG/ML VIAL IM ONE (19:30)
[2017-12-19] MEDS ORDERED: LORazepam 2 MG/ML VIAL IM ONE (19:30)
[2017-12-19] MEDS ORDERED: HALOPERIDOL LACTATE 5 MG/ML VIAL IM ONE (19:30)
[2017-12-20] MEDS: LEVOTHYROXINE SODIUM 200 MCG TABLET PO SCH (06:58)
[2017-12-20 08:00] VITALS: BP 136/91
[2017-12-20] MEDS: FLUTICASONE/VILANTEROL 200-25 MCG/INH INHALER [14] IH SCH (09:00)
[2017-12-20 10:31] VITALS: BP 136/91
[2017-12-20] MEDS: GABAPENTIN 300 MG CAPSULE PO SCH ×2 (10:48→17:19)
[2017-12-20] MEDS: ClonazePAM 0.5 MG TABLET PO SCH ×3 (10:48→17:19)
[2017-12-20] MEDS: CHOLECALCIFEROL (VIT D3) 5,000 UNITS CAPSULE PO SCH (10:48)
[2017-12-20] MEDS: PALIPERIDONE 6 MG ER TABLET PO SCH ×2 (10:48→20:26)
[2017-12-20] MEDS: NICOTINE 21 MG/24 HOUR PATCH TD SCH (10:49)
[2017-12-20 20:49] VITALS: BP 140/91
[2017-12-21] MEDS: LEVOTHYROXINE SODIUM 200 MCG TABLET PO SCH (06:48)
[2017-12-21 08:05] VITALS: BP 119/78
[2017-12-21] MEDS: FLUTICASONE/VILANTEROL 200-25 MCG/INH INHALER [14] IH SCH (09:00)
[2017-12-21] MEDS: GABAPENTIN 400 MG CAPSULE PO SCH ×3 (09:30→16:46)
[2017-12-21] MEDS: CHOLECALCIFEROL (VIT D3) 5,000 UNITS CAPSULE PO SCH (09:31)
[2017-12-21] MEDS: PALIPERIDONE 6 MG ER TABLET PO SCH ×2 (09:31→20:19)
[2017-12-21] MEDS: ClonazePAM 0.5 MG TABLET PO SCH ×3 (09:31→16:46)
[2017-12-21] MEDS: NICOTINE 21 MG/24 HOUR PATCH TD SCH (09:39)
[2017-12-21 16:56] VITALS: BP 153/102
[2017-12-22] MEDS: LEVOTHYROXINE SODIUM 200 MCG TABLET PO SCH (06:58)
[2017-12-22 08:10] VITALS: BP 138/84
[2017-12-22] MEDS: FLUTICASONE/VILANTEROL 200-25 MCG/INH INHALER [14] IH SCH (09:00)
[2017-12-22] MEDS: NICOTINE 21 MG/24 HOUR PATCH TD SCH (09:00)
[2017-12-22] MEDS: ClonazePAM 0.5 MG TABLET PO SCH ×3 (10:44→16:37)
[2017-12-22] MEDS: PALIPERIDONE 6 MG ER TABLET PO SCH ×2 (10:44→20:31)
[2017-12-22] MEDS: GABAPENTIN 400 MG CAPSULE PO SCH ×3 (10:44→16:38)
[2017-12-22] MEDS: CHOLECALCIFEROL (VIT D3) 5,000 UNITS CAPSULE PO SCH (10:44)
[2017-12-22 18:02] VITALS: BP 139/82
[2017-12-23] MEDS: LEVOTHYROXINE SODIUM 200 MCG TABLET PO SCH (07:25)
[2017-12-23 08:11] VITALS: BP 108/75
[2017-12-23] MEDS: FLUTICASONE/VILANTEROL 200-25 MCG/INH INHALER [14] IH SCH (09:00)
[2017-12-23] MEDS: ClonazePAM 0.5 MG TABLET PO SCH ×3 (09:26→16:33)
[2017-12-23] MEDS: PALIPERIDONE 6 MG ER TABLET PO SCH ×2 (09:26→20:18)
[2017-12-23] MEDS: NICOTINE 21 MG/24 HOUR PATCH TD SCH (09:27)
[2017-12-23] MEDS: CHOLECALCIFEROL (VIT D3) 5,000 UNITS CAPSULE PO SCH (09:27)
[2017-12-23] MEDS: GABAPENTIN 400 MG CAPSULE PO SCH ×4 (10:10→16:33)
[2017-12-23 17:06] VITALS: BP 138/77
[2017-12-24] MEDS: LEVOTHYROXINE SODIUM 200 MCG TABLET PO SCH (06:53)
[2017-12-24 08:01] VITALS: BP 117/78
[2017-12-24] MEDS: FLUTICASONE/VILANTEROL 200-25 MCG/INH INHALER [14] IH SCH (09:00)
[2017-12-24] MEDS: GABAPENTIN 400 MG CAPSULE PO SCH ×3 (09:33→16:01)
[2017-12-24] MEDS: PALIPERIDONE 6 MG ER TABLET PO SCH ×2 (09:33→20:24)
[2017-12-24] MEDS: ClonazePAM 0.5 MG TABLET PO SCH ×3 (09:33→16:01)
[2017-12-24] MEDS: CHOLECALCIFEROL (VIT D3) 5,000 UNITS CAPSULE PO SCH (09:33)
[2017-12-24] MEDS: NICOTINE 21 MG/24 HOUR PATCH TD SCH (09:35)
[2017-12-24 16:20] VITALS: BP 131/85
[2017-12-25] MEDS: LEVOTHYROXINE SODIUM 200 MCG TABLET PO SCH (06:41)
[2017-12-25] MEDS: CHOLECALCIFEROL (VIT D3) 5,000 UNITS CAPSULE PO SCH (09:00)
[2017-12-25] MEDS: FLUTICASONE/VILANTEROL 200-25 MCG/INH INHALER [14] IH SCH (09:00)
[2017-12-25] MEDS: NICOTINE 21 MG/24 HOUR PATCH TD SCH (09:00)
[2017-12-25] MEDS: ClonazePAM 0.5 MG TABLET PO SCH ×3 (09:32→16:53)
[2017-12-25] MEDS: PALIPERIDONE 6 MG ER TABLET PO SCH ×2 (09:32→21:47)
[2017-12-25] MEDS: GABAPENTIN 400 MG CAPSULE PO SCH ×3 (09:32→16:53)
[2017-12-25 12:50] VITALS: BP 119/77
[2017-12-25 16:50] VITALS: BP 124/76
[2017-12-26] MEDS: LEVOTHYROXINE SODIUM 200 MCG TABLET PO SCH (06:43)
[2017-12-26] MEDS: FLUTICASONE/VILANTEROL 200-25 MCG/INH INHALER [14] IH SCH (09:00)
[2017-12-26] MEDS: CHOLECALCIFEROL (VIT D3) 5,000 UNITS CAPSULE PO SCH ×2 (09:00→10:40)
[2017-12-26] MEDS: NICOTINE 21 MG/24 HOUR PATCH TD SCH (09:00)
[2017-12-26 09:27] VITALS: BP 102/52
[2017-12-26] MEDS: GABAPENTIN 400 MG CAPSULE PO SCH ×3 (10:41→16:29)
[2017-12-26] MEDS: PALIPERIDONE 6 MG ER TABLET PO SCH ×2 (10:41→20:30)
[2017-12-26] MEDS: ClonazePAM 0.5 MG TABLET PO SCH ×3 (10:42→16:29)
[2017-12-26 18:49] VITALS: BP 126/82
[2017-12-27] MEDS: LEVOTHYROXINE SODIUM 200 MCG TABLET PO SCH (06:28)
[2017-12-27 09:00] VITALS: BP 146/93
[2017-12-27] MEDS: CHOLECALCIFEROL (VIT D3) 5,000 UNITS CAPSULE PO SCH (09:00)
[2017-12-27] MEDS: NICOTINE 21 MG/24 HOUR PATCH TD SCH (09:00)
[2017-12-27] MEDS: FLUTICASONE/VILANTEROL 200-25 MCG/INH INHALER [14] IH SCH ×2 (09:00→09:16)
[2017-12-27] MEDS: ClonazePAM 0.5 MG TABLET PO SCH ×3 (09:14→16:10)
[2017-12-27] MEDS: GABAPENTIN 400 MG CAPSULE PO SCH ×3 (09:14→16:10)
[2017-12-27] MEDS: PALIPERIDONE 6 MG ER TABLET PO SCH ×2 (09:15→20:10)
[2017-12-27 18:26] VITALS: BP 135/73
[2017-12-28] MEDS: LEVOTHYROXINE SODIUM 200 MCG TABLET PO SCH (06:32)
[2017-12-28 09:00] VITALS: BP 118/64
[2017-12-28] MEDS: FLUTICASONE/VILANTEROL 200-25 MCG/INH INHALER [14] IH SCH (09:00)
[2017-12-28] MEDS: CHOLECALCIFEROL (VIT D3) 5,000 UNITS CAPSULE PO SCH (09:00)
[2017-12-28] MEDS: PALIPERIDONE 6 MG ER TABLET PO SCH ×2 (09:20→20:48)
[2017-12-28] MEDS: GABAPENTIN 400 MG CAPSULE PO SCH ×3 (09:20→16:26)
[2017-12-28] MEDS: ClonazePAM 0.5 MG TABLET PO SCH ×4 (09:20→16:26)
[2017-12-28] MEDS: NICOTINE 21 MG/24 HOUR PATCH TD SCH (09:22)
[2017-12-28 16:46] VITALS: BP 122/84
[2017-12-29 01:15] VITALS: BP 145/95
[2017-12-29] MEDS: LEVOTHYROXINE SODIUM 200 MCG TABLET PO SCH (06:40)
[2017-12-29 08:00] VITALS: BP 144/85
[2017-12-29] MEDS: FLUTICASONE/VILANTEROL 200-25 MCG/INH INHALER [14] IH SCH (09:00)
[2017-12-29] MEDS: CHOLECALCIFEROL (VIT D3) 5,000 UNITS CAPSULE PO SCH (09:03)
[2017-12-29] MEDS: ClonazePAM 0.5 MG TABLET PO SCH ×3 (09:03→16:26)
[2017-12-29] MEDS: GABAPENTIN 400 MG CAPSULE PO SCH ×3 (09:04→16:24)
[2017-12-29] MEDS: PALIPERIDONE 6 MG ER TABLET PO SCH ×2 (09:04→20:56)
[2017-12-29] MEDS: NICOTINE 21 MG/24 HOUR PATCH TD SCH (09:06)
[2017-12-29 16:36] VITALS: BP 148/93
[2017-12-30] MEDS: LEVOTHYROXINE SODIUM 200 MCG TABLET PO SCH (06:53)
[2017-12-30] MEDS: FLUTICASONE/VILANTEROL 200-25 MCG/INH INHALER [14] IH SCH (09:00)
[2017-12-30] MEDS: NICOTINE 21 MG/24 HOUR PATCH TD SCH (09:00)
[2017-12-30] MEDS: CHOLECALCIFEROL (VIT D3) 5,000 UNITS CAPSULE PO SCH (09:00)
[2017-12-30] MEDS: GABAPENTIN 400 MG CAPSULE PO SCH ×3 (09:31→17:55)
[2017-12-30] MEDS: ClonazePAM 0.5 MG TABLET PO SCH ×3 (09:32→17:55)
[2017-12-30] MEDS: PALIPERIDONE 6 MG ER TABLET PO SCH ×2 (09:32→20:44)
[2017-12-30 18:40] VITALS: BP 139/89
[2017-12-31] MEDS: LEVOTHYROXINE SODIUM 200 MCG TABLET PO SCH (06:54)
[2017-12-31] MEDS: GABAPENTIN 400 MG CAPSULE PO SCH ×3 (08:55→16:16)
[2017-12-31] MEDS: ClonazePAM 0.5 MG TABLET PO SCH ×4 (08:56→17:00)
[2017-12-31] MEDS: PALIPERIDONE 6 MG ER TABLET PO SCH ×2 (08:56→20:23)
[2017-12-31] MEDS: NICOTINE 21 MG/24 HOUR PATCH TD SCH (08:57)
[2017-12-31] MEDS: CHOLECALCIFEROL (VIT D3) 5,000 UNITS CAPSULE PO SCH (08:57)
[2017-12-31] MEDS: FLUTICASONE/VILANTEROL 200-25 MCG/INH INHALER [14] IH SCH (08:57)
[2017-12-31 09:00] VITALS: BP 104/59
[2017-12-31 16:38] VITALS: BP 128/78
[2018-01-01] MEDS: LEVOTHYROXINE SODIUM 200 MCG TABLET PO SCH (06:57)
[2018-01-01 08:00] VITALS: BP 102/60
[2018-01-01] MEDS: FLUTICASONE/VILANTEROL 200-25 MCG/INH INHALER [14] IH SCH (09:00)
[2018-01-01] MEDS: ClonazePAM 0.5 MG TABLET PO SCH ×3 (09:41→16:08)
[2018-01-01] MEDS: CHOLECALCIFEROL (VIT D3) 5,000 UNITS CAPSULE PO SCH (09:41)
[2018-01-01] MEDS: GABAPENTIN 400 MG CAPSULE PO SCH ×3 (09:41→16:08)
[2018-01-01] MEDS: PALIPERIDONE 6 MG ER TABLET PO SCH ×2 (09:41→20:20)
[2018-01-01] MEDS: NICOTINE 21 MG/24 HOUR PATCH TD SCH (09:44)
[2018-01-01 18:00] VITALS: BP 112/65
[2018-01-02 00:54] VITALS: BP 140/81
[2018-01-02] MEDS: LEVOTHYROXINE SODIUM 200 MCG TABLET PO SCH (06:41)
[2018-01-02 08:05] VITALS: BP 123/87
[2018-01-02] MEDS: CHOLECALCIFEROL (VIT D3) 5,000 UNITS CAPSULE PO SCH (09:00)
[2018-01-02] MEDS: FLUTICASONE/VILANTEROL 200-25 MCG/INH INHALER [14] IH SCH (09:00)
[2018-01-02] MEDS: PALIPERIDONE 6 MG ER TABLET PO SCH ×2 (09:03→20:18)
[2018-01-02] MEDS: ClonazePAM 0.5 MG TABLET PO SCH ×3 (09:03→16:29)
[2018-01-02] MEDS: GABAPENTIN 400 MG CAPSULE PO SCH ×3 (09:04→16:29)
[2018-01-02] MEDS: NICOTINE 21 MG/24 HOUR PATCH TD SCH (09:04)
[2018-01-02 16:18] VITALS: BP 126/89
[2018-01-03] MEDS: LEVOTHYROXINE SODIUM 200 MCG TABLET PO SCH (06:54)
[2018-01-03 08:00] VITALS: BP 141/87
[2018-01-03] MEDS: FLUTICASONE/VILANTEROL 200-25 MCG/INH INHALER [14] IH SCH (09:00)
[2018-01-03] MEDS: CHOLECALCIFEROL (VIT D3) 5,000 UNITS CAPSULE PO SCH (09:17)
[2018-01-03] MEDS: ClonazePAM 0.5 MG TABLET PO SCH ×3 (09:18→15:57)
[2018-01-03] MEDS: PALIPERIDONE 6 MG ER TABLET PO SCH ×2 (09:18→20:02)
[2018-01-03] MEDS: GABAPENTIN 400 MG CAPSULE PO SCH ×3 (09:18→15:57)
[2018-01-03] MEDS: NICOTINE 21 MG/24 HOUR PATCH TD SCH (09:20)
[2018-01-03 16:31] VITALS: BP 132/87
[2018-01-04] MEDS: LEVOTHYROXINE SODIUM 200 MCG TABLET PO SCH (06:47)
[2018-01-04 08:00] VITALS: BP 114/76
[2018-01-04] MEDS: FLUTICASONE/VILANTEROL 200-25 MCG/INH INHALER [14] IH SCH (09:00)
[2018-01-04] MEDS: PALIPERIDONE 6 MG ER TABLET PO SCH ×2 (09:23→21:10)
[2018-01-04] MEDS: GABAPENTIN 400 MG CAPSULE PO SCH ×3 (09:24→16:15)
[2018-01-04] MEDS: CHOLECALCIFEROL (VIT D3) 5,000 UNITS CAPSULE PO SCH (09:24)
[2018-01-04] MEDS: ClonazePAM 0.5 MG TABLET PO SCH ×3 (09:24→16:15)
[2018-01-04] MEDS: NICOTINE 21 MG/24 HOUR PATCH TD SCH (09:25)
[2018-01-04 19:14] VITALS: BP 152/99
[2018-01-05] MEDS: LEVOTHYROXINE SODIUM 200 MCG TABLET PO SCH (06:51)
[2018-01-05 08:00] VITALS: BP 114/77
[2018-01-05] MEDS: FLUTICASONE/VILANTEROL 200-25 MCG/INH INHALER [14] IH SCH (09:00)
[2018-01-05] MEDS: PALIPERIDONE 6 MG ER TABLET PO SCH ×2 (10:43→20:42)
[2018-01-05] MEDS: CHOLECALCIFEROL (VIT D3) 5,000 UNITS CAPSULE PO SCH (10:43)
[2018-01-05] MEDS: NICOTINE 21 MG/24 HOUR PATCH TD SCH ×2 (10:46→11:26)
[2018-01-05] MEDS: GABAPENTIN 400 MG CAPSULE PO SCH ×3 (10:47→16:30)
[2018-01-05] MEDS: ClonazePAM 0.5 MG TABLET PO SCH ×3 (10:47→16:29)
[2018-01-05 19:37] VITALS: BP 132/78
[2018-01-06] MEDS: LEVOTHYROXINE SODIUM 200 MCG TABLET PO SCH (06:57)
[2018-01-06 08:00] VITALS: BP 124/73
[2018-01-06] MEDS: FLUTICASONE/VILANTEROL 200-25 MCG/INH INHALER [14] IH SCH (09:00)
[2018-01-06] MEDS: PALIPERIDONE 6 MG ER TABLET PO SCH ×2 (09:00→20:54)
[2018-01-06] MEDS: GABAPENTIN 400 MG CAPSULE PO SCH ×3 (09:00→17:00)
[2018-01-06] MEDS: CHOLECALCIFEROL (VIT D3) 5,000 UNITS CAPSULE PO SCH (09:00)
[2018-01-06] MEDS: ClonazePAM 0.5 MG TABLET PO SCH ×3 (09:00→17:00)
[2018-01-06 18:29] VITALS: BP 152/92
[2018-01-07 00:28] VITALS: BP 145/101
[2018-01-07] MEDS: LEVOTHYROXINE SODIUM 200 MCG TABLET PO SCH (07:04)
[2018-01-07 08:00] VITALS: BP 155/109
[2018-01-07] MEDS: NICOTINE 21 MG/24 HOUR PATCH TD SCH (08:33)
[2018-01-07] MEDS: ClonazePAM 0.5 MG TABLET PO SCH ×3 (08:35→16:06)
[2018-01-07] MEDS: PALIPERIDONE 6 MG ER TABLET PO SCH ×2 (08:35→20:43)
[2018-01-07] MEDS: FLUTICASONE/VILANTEROL 200-25 MCG/INH INHALER [14] IH SCH (08:35)
[2018-01-07] MEDS: CHOLECALCIFEROL (VIT D3) 5,000 UNITS CAPSULE PO SCH (08:35)
[2018-01-07] MEDS: GABAPENTIN 400 MG CAPSULE PO SCH ×3 (08:35→16:06)
[2018-01-07 20:09] VITALS: BP 142/99
[2018-01-08] MEDS: LEVOTHYROXINE SODIUM 200 MCG TABLET PO SCH (06:55)
[2018-01-08 08:00] VITALS: BP 159/105
[2018-01-08] MEDS: PALIPERIDONE 6 MG ER TABLET PO SCH ×2 (08:51→20:21)
[2018-01-08] MEDS: GABAPENTIN 400 MG CAPSULE PO SCH ×3 (08:51→16:21)
[2018-01-08] MEDS: ClonazePAM 0.5 MG TABLET PO SCH ×3 (08:51→16:21)
[2018-01-08] MEDS: NICOTINE 21 MG/24 HOUR PATCH TD SCH (08:52)
[2018-01-08] MEDS: CHOLECALCIFEROL (VIT D3) 5,000 UNITS CAPSULE PO SCH (08:54)
[2018-01-08] MEDS: FLUTICASONE/VILANTEROL 200-25 MCG/INH INHALER [14] IH SCH (08:54)
[2018-01-08 09:41] VITALS: BP 147/84
[2018-01-08 16:47] VITALS: BP 137/78
[2018-01-09] MEDS: LEVOTHYROXINE SODIUM 200 MCG TABLET PO SCH (06:54)
[2018-01-09] MEDS: GABAPENTIN 400 MG CAPSULE PO SCH ×3 (08:37→15:58)
[2018-01-09] MEDS: ClonazePAM 0.5 MG TABLET PO SCH ×3 (08:37→15:58)
[2018-01-09] MEDS: CHOLECALCIFEROL (VIT D3) 5,000 UNITS CAPSULE PO SCH (08:37)
[2018-01-09] MEDS: PALIPERIDONE 6 MG ER TABLET PO SCH ×2 (08:37→20:17)
[2018-01-09] MEDS: NICOTINE 21 MG/24 HOUR PATCH TD SCH (08:44)
[2018-01-09] MEDS: FLUTICASONE/VILANTEROL 200-25 MCG/INH INHALER [14] IH SCH (09:00)
[2018-01-09 21:53] VITALS: BP 140/83
[2018-01-10] MEDS: LEVOTHYROXINE SODIUM 200 MCG TABLET PO SCH (06:37)
[2018-01-10 08:05] VITALS: BP 124/86
[2018-01-10] MEDS: ClonazePAM 0.5 MG TABLET PO SCH ×3 (08:22→16:01)
[2018-01-10] MEDS: CHOLECALCIFEROL (VIT D3) 5,000 UNITS CAPSULE PO SCH (08:22)
[2018-01-10] MEDS: PALIPERIDONE 6 MG ER TABLET PO SCH ×2 (08:23→20:19)
[2018-01-10] MEDS: GABAPENTIN 400 MG CAPSULE PO SCH ×3 (08:23→16:01)
[2018-01-10] MEDS: NICOTINE 21 MG/24 HOUR PATCH TD SCH (08:25)
[2018-01-10] MEDS: FLUTICASONE/VILANTEROL 200-25 MCG/INH INHALER [14] IH SCH (08:26)
[2018-01-10] MEDS: PALIPERIDONE PALMITATE 234 MG/1.5 ML SYRINGE IM SCH (13:22)
[2018-01-10 16:42] VITALS: BP 139/78
[2018-01-11] MEDS: LEVOTHYROXINE SODIUM 200 MCG TABLET PO SCH (06:40)
[2018-01-11 08:05] VITALS: BP 136/68
[2018-01-11] MEDS: FLUTICASONE/VILANTEROL 200-25 MCG/INH INHALER [14] IH SCH (09:00)
[2018-01-11] MEDS: CHOLECALCIFEROL (VIT D3) 5,000 UNITS CAPSULE PO SCH (09:12)
[2018-01-11] MEDS: PALIPERIDONE 6 MG ER TABLET PO SCH ×2 (09:12→20:18)
[2018-01-11] MEDS: GABAPENTIN 400 MG CAPSULE PO SCH ×3 (09:12→15:58)
[2018-01-11] MEDS: ClonazePAM 0.5 MG TABLET PO SCH ×3 (09:12→15:58)
[2018-01-11] MEDS: NICOTINE 21 MG/24 HOUR PATCH TD SCH (09:17)
[2018-01-11 16:43] VITALS: BP 123/76
[2018-01-12] MEDS: LEVOTHYROXINE SODIUM 200 MCG TABLET PO SCH (06:39)
[2018-01-12 08:05] VITALS: BP 118/80
[2018-01-12] MEDS: FLUTICASONE/VILANTEROL 200-25 MCG/INH INHALER [14] IH SCH (09:00)
[2018-01-12] MEDS: ClonazePAM 0.5 MG TABLET PO SCH ×4 (09:00→17:55)
[2018-01-12] MEDS: GABAPENTIN 400 MG CAPSULE PO SCH ×4 (09:00→17:55)
[2018-01-12] MEDS: CHOLECALCIFEROL (VIT D3) 5,000 UNITS CAPSULE PO SCH (11:27)
[2018-01-12] MEDS: PALIPERIDONE 6 MG ER TABLET PO SCH ×2 (11:27→21:04)
[2018-01-12] MEDS: NICOTINE 21 MG/24 HOUR PATCH TD SCH (11:28)
[2018-01-12 18:53] VITALS: BP 129/79
[2018-01-13] MEDS: LEVOTHYROXINE SODIUM 200 MCG TABLET PO SCH (06:54)
[2018-01-13] MEDS: PALIPERIDONE 6 MG ER TABLET PO SCH ×2 (07:50→20:33)
[2018-01-13] MEDS: CHOLECALCIFEROL (VIT D3) 5,000 UNITS CAPSULE PO SCH (07:50)
[2018-01-13] MEDS: FLUTICASONE/VILANTEROL 200-25 MCG/INH INHALER [14] IH SCH (07:51)
[2018-01-13] MEDS: NICOTINE 21 MG/24 HOUR PATCH TD SCH (07:53)
[2018-01-13] MEDS: ClonazePAM 0.5 MG TABLET PO SCH ×3 (07:53→16:25)
[2018-01-13] MEDS: GABAPENTIN 400 MG CAPSULE PO SCH ×3 (07:53→17:00)
[2018-01-13 08:26] VITALS: BP 132/90
[2018-01-13 19:24] VITALS: BP 126/76
[2018-01-14] MEDS: LEVOTHYROXINE SODIUM 200 MCG TABLET PO SCH (06:28)
[2018-01-14] MEDS: PALIPERIDONE 6 MG ER TABLET PO SCH ×2 (08:56→20:26)
[2018-01-14] MEDS: NICOTINE 21 MG/24 HOUR PATCH TD SCH (09:00)
[2018-01-14] MEDS: ClonazePAM 0.5 MG TABLET PO SCH ×3 (09:00→16:59)
[2018-01-14] MEDS: GABAPENTIN 400 MG CAPSULE PO SCH ×3 (09:00→16:58)
[2018-01-14] MEDS: CHOLECALCIFEROL (VIT D3) 5,000 UNITS CAPSULE PO SCH (09:00)
[2018-01-14] MEDS: FLUTICASONE/VILANTEROL 200-25 MCG/INH INHALER [14] IH SCH (09:00)
[2018-01-14 09:15] VITALS: BP 138/74
[2018-01-14 16:41] VITALS: BP 139/72
[2018-01-15] MEDS: LEVOTHYROXINE SODIUM 200 MCG TABLET PO SCH (06:21)
[2018-01-15] MEDS: ClonazePAM 0.5 MG TABLET PO SCH ×3 (09:00→16:24)
[2018-01-15] MEDS: NICOTINE 21 MG/24 HOUR PATCH TD SCH ×2 (09:00→12:00)
[2018-01-15] MEDS: FLUTICASONE/VILANTEROL 200-25 MCG/INH INHALER [14] IH SCH (09:00)
[2018-01-15] MEDS: GABAPENTIN 400 MG CAPSULE PO SCH ×3 (09:00→16:26)
[2018-01-15] MEDS: CHOLECALCIFEROL (VIT D3) 5,000 UNITS CAPSULE PO SCH (09:00)
[2018-01-15 09:19] VITALS: BP 132/89
[2018-01-15] MEDS: PALIPERIDONE 6 MG ER TABLET PO SCH ×2 (09:58→20:11)
[2018-01-15 18:19] VITALS: BP 128/82
[2018-01-16] MEDS: LEVOTHYROXINE SODIUM 200 MCG TABLET PO SCH (07:01)
[2018-01-16 08:05] VITALS: BP 133/87
[2018-01-16] MEDS: CHOLECALCIFEROL (VIT D3) 5,000 UNITS CAPSULE PO SCH (09:00)
[2018-01-16] MEDS: FLUTICASONE/VILANTEROL 200-25 MCG/INH INHALER [14] IH SCH (09:00)
[2018-01-16] MEDS: GABAPENTIN 400 MG CAPSULE PO SCH ×3 (09:00→17:00)
[2018-01-16] MEDS: ClonazePAM 0.5 MG TABLET PO SCH ×4 (09:24→17:05)
[2018-01-16] MEDS: PALIPERIDONE 6 MG ER TABLET PO SCH ×2 (09:24→20:18)
[2018-01-16] MEDS: NICOTINE 21 MG/24 HOUR PATCH TD SCH (09:25)
[2018-01-16 16:45] VITALS: BP 136/79
[2018-01-17] MEDS: LEVOTHYROXINE SODIUM 200 MCG TABLET PO SCH (06:55)
[2018-01-17 08:05] VITALS: BP 104/57
[2018-01-17] MEDS: FLUTICASONE/VILANTEROL 200-25 MCG/INH INHALER [14] IH SCH (09:00)
[2018-01-17] MEDS: GABAPENTIN 400 MG CAPSULE PO SCH ×3 (09:00→16:19)
[2018-01-17] MEDS: CHOLECALCIFEROL (VIT D3) 5,000 UNITS CAPSULE PO SCH (09:00)
[2018-01-17] MEDS: ClonazePAM 0.5 MG TABLET PO SCH ×3 (09:33→16:17)
[2018-01-17] MEDS: PALIPERIDONE 6 MG ER TABLET PO SCH ×2 (09:33→20:23)
[2018-01-17 16:47] VITALS: BP 135/87
[2018-01-18] MEDS: LEVOTHYROXINE SODIUM 200 MCG TABLET PO SCH (06:59)
[2018-01-18 08:00] VITALS: BP 104/62
[2018-01-18] MEDS: PALIPERIDONE 6 MG ER TABLET PO SCH ×2 (08:55→20:34)
[2018-01-18] MEDS: NICOTINE 21 MG/24 HOUR PATCH TD SCH (08:55)
[2018-01-18] MEDS: ClonazePAM 0.5 MG TABLET PO SCH ×3 (08:55→16:49)
[2018-01-18] MEDS: FLUTICASONE/VILANTEROL 200-25 MCG/INH INHALER [14] IH SCH (09:00)
[2018-01-18] MEDS: GABAPENTIN 400 MG CAPSULE PO SCH ×3 (09:00→17:00)
[2018-01-18] MEDS: CHOLECALCIFEROL (VIT D3) 5,000 UNITS CAPSULE PO SCH (09:00)
[2018-01-18 16:48] VITALS: BP 127/81
[2018-01-19] MEDS: LEVOTHYROXINE SODIUM 200 MCG TABLET PO SCH (06:21)
[2018-01-19 08:05] VITALS: BP 146/86
[2018-01-19] MEDS: ClonazePAM 0.5 MG TABLET PO SCH ×3 (09:00→16:48)
[2018-01-19] MEDS: NICOTINE 21 MG/24 HOUR PATCH TD SCH (09:00)
[2018-01-19] MEDS: CHOLECALCIFEROL (VIT D3) 5,000 UNITS CAPSULE PO SCH (09:00)
[2018-01-19] MEDS: GABAPENTIN 400 MG CAPSULE PO SCH ×3 (09:00→16:48)
[2018-01-19] MEDS: FLUTICASONE/VILANTEROL 200-25 MCG/INH INHALER [14] IH SCH (09:00)
[2018-01-19] MEDS: PALIPERIDONE 6 MG ER TABLET PO SCH ×2 (09:31→20:37)
[2018-01-19 21:24] VITALS: BP 129/78
[2018-01-20] MEDS: LEVOTHYROXINE SODIUM 200 MCG TABLET PO SCH (06:50)
[2018-01-20] MEDS: ClonazePAM 0.5 MG TABLET PO SCH ×3 (09:00→16:23)
[2018-01-20] MEDS: FLUTICASONE/VILANTEROL 200-25 MCG/INH INHALER [14] IH SCH (09:00)
[2018-01-20] MEDS: CHOLECALCIFEROL (VIT D3) 5,000 UNITS CAPSULE PO SCH (09:00)
[2018-01-20] MEDS: GABAPENTIN 400 MG CAPSULE PO SCH ×3 (09:00→16:22)
[2018-01-20] MEDS: NICOTINE 21 MG/24 HOUR PATCH TD SCH (09:00)
[2018-01-20 09:13] VITALS: BP 126/81
[2018-01-20] MEDS: PALIPERIDONE 6 MG ER TABLET PO SCH ×2 (10:11→20:34)
[2018-01-20 18:47] VITALS: BP 136/78
[2018-01-21] MEDS: LEVOTHYROXINE SODIUM 200 MCG TABLET PO SCH (06:53)
[2018-01-21] MEDS: FLUTICASONE/VILANTEROL 200-25 MCG/INH INHALER [14] IH SCH (08:07)
[2018-01-21] MEDS: ClonazePAM 0.5 MG TABLET PO SCH ×3 (08:07→16:33)
[2018-01-21] MEDS: GABAPENTIN 400 MG CAPSULE PO SCH ×3 (08:07→16:33)
[2018-01-21] MEDS: CHOLECALCIFEROL (VIT D3) 5,000 UNITS CAPSULE PO SCH (08:07)
[2018-01-21] MEDS: NICOTINE 21 MG/24 HOUR PATCH TD SCH ×2 (08:08→09:27)
[2018-01-21] MEDS: PALIPERIDONE 6 MG ER TABLET PO SCH ×2 (08:45→20:16)
[2018-01-21 09:21] VITALS: BP 132/78
[2018-01-21] MEDS: LORazepam 2 MG TABLET PO PRN (12:10)
[2018-01-21 21:58] VITALS: BP 150/70
[2018-01-22 00:15] VITALS: BP 141/92
[2018-01-22] MEDS: LEVOTHYROXINE SODIUM 200 MCG TABLET PO SCH (06:17)
[2018-01-22] MEDS: CHOLECALCIFEROL (VIT D3) 5,000 UNITS CAPSULE PO SCH (09:00)
[2018-01-22] MEDS: GABAPENTIN 400 MG CAPSULE PO SCH ×3 (09:00→16:51)
[2018-01-22] MEDS: FLUTICASONE/VILANTEROL 200-25 MCG/INH INHALER [14] IH SCH (09:00)
[2018-01-22] MEDS: ClonazePAM 0.5 MG TABLET PO SCH ×3 (09:00→16:44)
[2018-01-22] MEDS: NICOTINE 21 MG/24 HOUR PATCH TD SCH (09:07)
[2018-01-22] MEDS: PALIPERIDONE 6 MG ER TABLET PO SCH ×2 (09:07→20:12)
[2018-01-22 10:20] VITALS: BP 133/73
[2018-01-22 18:40] VITALS: BP 126/82
[2018-01-23] MEDS: LEVOTHYROXINE SODIUM 200 MCG TABLET PO SCH (06:57)
[2018-01-23] MEDS: PALIPERIDONE 6 MG ER TABLET PO SCH ×2 (08:55→20:41)
[2018-01-23] MEDS: ClonazePAM 0.5 MG TABLET PO SCH ×3 (08:56→16:43)
[2018-01-23] MEDS: CHOLECALCIFEROL (VIT D3) 5,000 UNITS CAPSULE PO SCH (08:56)
[2018-01-23] MEDS: NICOTINE 21 MG/24 HOUR PATCH TD SCH (08:57)
[2018-01-23] MEDS: GABAPENTIN 400 MG CAPSULE PO SCH ×3 (08:57→17:00)
[2018-01-23] MEDS: FLUTICASONE/VILANTEROL 200-25 MCG/INH INHALER [14] IH SCH (09:00)
[2018-01-23 10:28] VITALS: BP 111/79
[2018-01-23 21:27] VITALS: BP 147/87
[2018-01-24] MEDS: LEVOTHYROXINE SODIUM 200 MCG TABLET PO SCH (06:38)
[2018-01-24 08:05] VITALS: BP 124/70
[2018-01-24] MEDS: FLUTICASONE/VILANTEROL 200-25 MCG/INH INHALER [14] IH SCH (09:00)
[2018-01-24] MEDS: GABAPENTIN 400 MG CAPSULE PO SCH ×3 (09:00→17:00)
[2018-01-24] MEDS: PALIPERIDONE 6 MG ER TABLET PO SCH ×2 (09:15→20:32)
[2018-01-24] MEDS: ClonazePAM 0.5 MG TABLET PO SCH ×3 (09:16→13:13)
[2018-01-24] MEDS: CHOLECALCIFEROL (VIT D3) 5,000 UNITS CAPSULE PO SCH (09:16)
[2018-01-24] MEDS: NICOTINE 21 MG/24 HOUR PATCH TD SCH (09:19)
[2018-01-24 16:56] VITALS: BP 132/85
[2018-01-25] MEDS: LEVOTHYROXINE SODIUM 200 MCG TABLET PO SCH (06:27)
[2018-01-25 08:33] VITALS: BP 99/56
[2018-01-25] MEDS: GABAPENTIN 400 MG CAPSULE PO SCH ×3 (09:00→17:00)
[2018-01-25] MEDS: FLUTICASONE/VILANTEROL 200-25 MCG/INH INHALER [14] IH SCH (09:00)
[2018-01-25] MEDS: NICOTINE 21 MG/24 HOUR PATCH TD SCH (09:00)
[2018-01-25] MEDS: CHOLECALCIFEROL (VIT D3) 5,000 UNITS CAPSULE PO SCH (09:00)
[2018-01-25] MEDS: ClonazePAM 0.5 MG TABLET PO SCH ×3 (09:00→16:03)
[2018-01-25] MEDS: PALIPERIDONE 6 MG ER TABLET PO SCH ×2 (10:27→21:16)
[2018-01-25 16:32] VITALS: BP 156/79
[2018-01-26] MEDS: LEVOTHYROXINE SODIUM 200 MCG TABLET PO SCH (06:31)
[2018-01-26] MEDS: GABAPENTIN 400 MG CAPSULE PO SCH ×3 (09:00→16:07)
[2018-01-26] MEDS: CHOLECALCIFEROL (VIT D3) 5,000 UNITS CAPSULE PO SCH (09:00)
[2018-01-26] MEDS: FLUTICASONE/VILANTEROL 200-25 MCG/INH INHALER [14] IH SCH (09:00)
[2018-01-26] MEDS: ClonazePAM 0.5 MG TABLET PO SCH ×3 (09:08→16:06)
[2018-01-26] MEDS: PALIPERIDONE 6 MG ER TABLET PO SCH ×2 (09:08→20:05)
[2018-01-26] MEDS: NICOTINE 21 MG/24 HOUR PATCH TD SCH (09:09)
[2018-01-26 09:37] VITALS: BP 103/56
[2018-01-26 18:07] VITALS: BP 123/69
[2018-01-27] MEDS: LEVOTHYROXINE SODIUM 200 MCG TABLET PO SCH (06:28)
[2018-01-27] MEDS: FLUTICASONE/VILANTEROL 200-25 MCG/INH INHALER [14] IH SCH (09:00)
[2018-01-27] MEDS: GABAPENTIN 400 MG CAPSULE PO SCH ×3 (09:00→16:38)
[2018-01-27] MEDS: CHOLECALCIFEROL (VIT D3) 5,000 UNITS CAPSULE PO SCH (09:00)
[2018-01-27 09:13] VITALS: BP 131/89
[2018-01-27] MEDS: ClonazePAM 0.5 MG TABLET PO SCH ×3 (09:20→16:37)
[2018-01-27] MEDS: PALIPERIDONE 6 MG ER TABLET PO SCH ×2 (09:21→20:09)
[2018-01-27] MEDS: NICOTINE 21 MG/24 HOUR PATCH TD SCH (09:23)
[2018-01-27 18:38] VITALS: BP 130/89
[2018-01-28] MEDS: LEVOTHYROXINE SODIUM 200 MCG TABLET PO SCH (07:00)
[2018-01-28] MEDS: CHOLECALCIFEROL (VIT D3) 5,000 UNITS CAPSULE PO SCH (09:00)
[2018-01-28] MEDS: FLUTICASONE/VILANTEROL 200-25 MCG/INH INHALER [14] IH SCH (09:00)
[2018-01-28] MEDS: GABAPENTIN 400 MG CAPSULE PO SCH ×3 (09:00→16:57)
[2018-01-28] MEDS: ClonazePAM 0.5 MG TABLET PO SCH ×3 (09:23→16:57)
[2018-01-28] MEDS: PALIPERIDONE 6 MG ER TABLET PO SCH ×2 (09:23→20:29)
[2018-01-28] MEDS: NICOTINE 21 MG/24 HOUR PATCH TD SCH (09:24)
[2018-01-28 09:33] VITALS: BP 118/72
[2018-01-28 16:45] VITALS: BP 117/77
[2018-01-29] MEDS: LEVOTHYROXINE SODIUM 200 MCG TABLET PO SCH (06:57)
[2018-01-29] MEDS: GABAPENTIN 400 MG CAPSULE PO SCH ×3 (09:00→18:00)
[2018-01-29] MEDS: CHOLECALCIFEROL (VIT D3) 5,000 UNITS CAPSULE PO SCH (09:00)
[2018-01-29] MEDS: NICOTINE 21 MG/24 HOUR PATCH TD SCH (09:00)
[2018-01-29] MEDS: FLUTICASONE/VILANTEROL 200-25 MCG/INH INHALER [14] IH SCH (09:00)
[2018-01-29] MEDS: ClonazePAM 0.5 MG TABLET PO SCH ×3 (09:00→16:17)
[2018-01-29] MEDS: PALIPERIDONE 6 MG ER TABLET PO SCH ×2 (09:26→20:33)
[2018-01-29 09:56] VITALS: BP 112/68
[2018-01-29 21:40] VITALS: BP 126/80
[2018-01-30] MEDS: LEVOTHYROXINE SODIUM 200 MCG TABLET PO SCH (06:49)
[2018-01-30] MEDS: PALIPERIDONE 6 MG ER TABLET PO SCH ×2 (08:20→20:11)
[2018-01-30] MEDS: ClonazePAM 0.5 MG TABLET PO SCH ×3 (08:20→16:19)
[2018-01-30] MEDS: NICOTINE 21 MG/24 HOUR PATCH TD SCH (08:22)
[2018-01-30] MEDS: CHOLECALCIFEROL (VIT D3) 5,000 UNITS CAPSULE PO SCH (09:00)
[2018-01-30] MEDS: GABAPENTIN 400 MG CAPSULE PO SCH ×3 (09:00→16:20)
[2018-01-30] MEDS: FLUTICASONE/VILANTEROL 200-25 MCG/INH INHALER [14] IH SCH (09:00)
[2018-01-30 10:07] VITALS: BP 124/94
[2018-01-30 20:08] VITALS: BP 138/77
[2018-01-31] MEDS: LEVOTHYROXINE SODIUM 200 MCG TABLET PO SCH (06:56)
[2018-01-31] MEDS: PALIPERIDONE 6 MG ER TABLET PO SCH ×2 (08:37→20:16)
[2018-01-31] MEDS: ClonazePAM 0.5 MG TABLET PO SCH ×4 (08:37→19:21)
[2018-01-31] MEDS: GABAPENTIN 400 MG CAPSULE PO SCH ×3 (08:39→16:47)
[2018-01-31] MEDS: CHOLECALCIFEROL (VIT D3) 5,000 UNITS CAPSULE PO SCH (08:40)
[2018-01-31] MEDS: NICOTINE 21 MG/24 HOUR PATCH TD SCH (08:40)
[2018-01-31] MEDS: FLUTICASONE/VILANTEROL 200-25 MCG/INH INHALER [14] IH SCH (09:00)
[2018-01-31 09:14] VITALS: BP 136/84
[2018-01-31 16:51] VITALS: BP 116/63
[2018-02-01] MEDS: LEVOTHYROXINE SODIUM 200 MCG TABLET PO SCH (06:50)
[2018-02-01 08:56] VITALS: BP 139/91
[2018-02-01] MEDS: GABAPENTIN 400 MG CAPSULE PO SCH ×3 (09:00→16:51)
[2018-02-01] MEDS: CHOLECALCIFEROL (VIT D3) 5,000 UNITS CAPSULE PO SCH (09:00)
[2018-02-01] MEDS: FLUTICASONE/VILANTEROL 200-25 MCG/INH INHALER [14] IH SCH (09:00)
[2018-02-01] MEDS: ClonazePAM 0.5 MG TABLET PO SCH ×3 (09:24→16:50)
[2018-02-01] MEDS: PALIPERIDONE 6 MG ER TABLET PO SCH ×2 (09:24→20:26)
[2018-02-01] MEDS: NICOTINE 21 MG/24 HOUR PATCH TD SCH (09:25)
[2018-02-01 19:21] VITALS: BP 102/63
[2018-02-02] MEDS: LEVOTHYROXINE SODIUM 200 MCG TABLET PO SCH (06:51)
[2018-02-02] MEDS: NICOTINE 21 MG/24 HOUR PATCH TD SCH (08:25)
[2018-02-02] MEDS: PALIPERIDONE 6 MG ER TABLET PO SCH ×2 (08:26→20:36)
[2018-02-02] MEDS: FLUTICASONE/VILANTEROL 200-25 MCG/INH INHALER [14] IH SCH (08:26)
[2018-02-02] MEDS: ClonazePAM 0.5 MG TABLET PO SCH ×3 (08:26→17:00)
[2018-02-02] MEDS: CHOLECALCIFEROL (VIT D3) 5,000 UNITS CAPSULE PO SCH (08:26)
[2018-02-02] MEDS: GABAPENTIN 400 MG CAPSULE PO SCH ×3 (08:26→17:00)
[2018-02-02 12:02] VITALS: BP 113/77
[2018-02-02 16:48] VITALS: BP 129/67
[2018-02-03] MEDS: LEVOTHYROXINE SODIUM 200 MCG TABLET PO SCH ×2 (07:00→07:10)
[2018-02-03] MEDS: NICOTINE 21 MG/24 HOUR PATCH TD SCH (09:00)
[2018-02-03] MEDS: FLUTICASONE/VILANTEROL 200-25 MCG/INH INHALER [14] IH SCH (09:00)
[2018-02-03] MEDS: GABAPENTIN 400 MG CAPSULE PO SCH ×4 (09:00→16:45)
[2018-02-03] MEDS: CHOLECALCIFEROL (VIT D3) 5,000 UNITS CAPSULE PO SCH (09:00)
[2018-02-03] MEDS: ClonazePAM 0.5 MG TABLET PO SCH ×3 (09:18→16:45)
[2018-02-03] MEDS: PALIPERIDONE 6 MG ER TABLET PO SCH ×2 (09:19→21:04)
[2018-02-03 19:24] VITALS: BP 127/80
[2018-02-04] MEDS: LEVOTHYROXINE SODIUM 200 MCG TABLET PO SCH (06:41)
[2018-02-04 08:00] VITALS: BP 115/74
[2018-02-04] MEDS: NICOTINE 21 MG/24 HOUR PATCH TD SCH ×2 (09:00→14:51)
[2018-02-04] MEDS: CHOLECALCIFEROL (VIT D3) 5,000 UNITS CAPSULE PO SCH (09:00)
[2018-02-04] MEDS: PALIPERIDONE 6 MG ER TABLET PO SCH ×2 (09:00→21:47)
[2018-02-04] MEDS: GABAPENTIN 400 MG CAPSULE PO SCH ×4 (09:00→17:00)
[2018-02-04] MEDS: ClonazePAM 0.5 MG TABLET PO SCH ×4 (09:00→16:18)
[2018-02-04] MEDS: FLUTICASONE/VILANTEROL 200-25 MCG/INH INHALER [14] IH SCH (09:00)
[2018-02-04 16:40] VITALS: BP 121/71
[2018-02-05] MEDS: LEVOTHYROXINE SODIUM 200 MCG TABLET PO SCH (06:16)
[2018-02-05] MEDS: GABAPENTIN 400 MG CAPSULE PO SCH ×3 (08:54→16:30)
[2018-02-05] MEDS: PALIPERIDONE 6 MG ER TABLET PO SCH ×2 (08:54→20:54)
[2018-02-05] MEDS: ClonazePAM 0.5 MG TABLET PO SCH ×3 (08:54→16:30)
[2018-02-05] MEDS: FLUTICASONE/VILANTEROL 200-25 MCG/INH INHALER [14] IH SCH (08:55)
[2018-02-05] MEDS: CHOLECALCIFEROL (VIT D3) 5,000 UNITS CAPSULE PO SCH (08:56)
[2018-02-05] MEDS: NICOTINE 21 MG/24 HOUR PATCH TD SCH (08:56)
[2018-02-05 09:55] VITALS: BP 122/67
[2018-02-05 17:00] VITALS: BP 115/86
[2018-02-06] MEDS: LEVOTHYROXINE SODIUM 200 MCG TABLET PO SCH (06:51)
[2018-02-06] MEDS: CHOLECALCIFEROL (VIT D3) 5,000 UNITS CAPSULE PO SCH (09:00)
[2018-02-06] MEDS: FLUTICASONE/VILANTEROL 200-25 MCG/INH INHALER [14] IH SCH (09:00)
[2018-02-06] MEDS: GABAPENTIN 400 MG CAPSULE PO SCH ×3 (09:05→16:12)
[2018-02-06] MEDS: NICOTINE 21 MG/24 HOUR PATCH TD SCH (09:05)
[2018-02-06] MEDS: ClonazePAM 0.5 MG TABLET PO SCH ×3 (09:06→16:12)
[2018-02-06] MEDS: PALIPERIDONE 6 MG ER TABLET PO SCH ×2 (09:06→21:05)
[2018-02-06 19:10] VITALS: BP 136/87
[2018-02-07 00:16] VITALS: BP 129/88
[2018-02-07] MEDS: LEVOTHYROXINE SODIUM 200 MCG TABLET PO SCH (06:04)
[2018-02-07 09:00] VITALS: BP 108/72
[2018-02-07] MEDS: CHOLECALCIFEROL (VIT D3) 5,000 UNITS CAPSULE PO SCH (09:00)
[2018-02-07] MEDS: FLUTICASONE/VILANTEROL 200-25 MCG/INH INHALER [14] IH SCH ×2 (09:00→10:14)
[2018-02-07] MEDS: ClonazePAM 0.5 MG TABLET PO SCH ×3 (10:01→16:10)
[2018-02-07] MEDS: GABAPENTIN 400 MG CAPSULE PO SCH ×3 (10:02→16:10)
[2018-02-07] MEDS: PALIPERIDONE 6 MG ER TABLET PO SCH ×2 (10:02→21:08)
[2018-02-07] MEDS: PALIPERIDONE PALMITATE 234 MG/1.5 ML SYRINGE IM SCH (10:06)
[2018-02-07] MEDS: NICOTINE 21 MG/24 HOUR PATCH TD SCH (10:24)
[2018-02-07 16:45] VITALS: BP 145/100
[2018-02-08] MEDS: LEVOTHYROXINE SODIUM 200 MCG TABLET PO SCH (06:47)
[2018-02-08 08:48] VITALS: BP 122/74
[2018-02-08] MEDS: PALIPERIDONE 6 MG ER TABLET PO SCH ×2 (08:54→21:20)
[2018-02-08] MEDS: ClonazePAM 0.5 MG TABLET PO SCH ×3 (08:54→16:24)
[2018-02-08] MEDS: GABAPENTIN 400 MG CAPSULE PO SCH ×3 (08:54→16:24)
[2018-02-08] MEDS: NICOTINE 21 MG/24 HOUR PATCH TD SCH (08:55)
[2018-02-08] MEDS: FLUTICASONE/VILANTEROL 200-25 MCG/INH INHALER [14] IH SCH (09:00)
[2018-02-08] MEDS: CHOLECALCIFEROL (VIT D3) 5,000 UNITS CAPSULE PO SCH (09:00)
[2018-02-08 16:45] VITALS: BP 119/79
[2018-02-09] MEDS: LEVOTHYROXINE SODIUM 200 MCG TABLET PO SCH (06:38)
[2018-02-09 08:00] VITALS: BP 129/75
[2018-02-09] MEDS: NICOTINE 21 MG/24 HOUR PATCH TD SCH ×2 (09:00→12:15)
[2018-02-09] MEDS: CHOLECALCIFEROL (VIT D3) 5,000 UNITS CAPSULE PO SCH (09:00)
[2018-02-09] MEDS: FLUTICASONE/VILANTEROL 200-25 MCG/INH INHALER [14] IH SCH (09:00)
[2018-02-09] MEDS: GABAPENTIN 400 MG CAPSULE PO SCH ×3 (09:54→16:17)
[2018-02-09] MEDS: ClonazePAM 0.5 MG TABLET PO SCH ×3 (09:54→16:17)
[2018-02-09] MEDS: PALIPERIDONE 6 MG ER TABLET PO SCH ×2 (09:54→20:18)
[2018-02-09 16:39] VITALS: BP 137/80
[2018-02-09 16:41] VITALS: BP 137/80
[2018-02-10] MEDS: LEVOTHYROXINE SODIUM 200 MCG TABLET PO SCH (06:51)
[2018-02-10 09:00] VITALS: BP 128/86
[2018-02-10] MEDS: FLUTICASONE/VILANTEROL 200-25 MCG/INH INHALER [14] IH SCH (09:00)
[2018-02-10] MEDS: CHOLECALCIFEROL (VIT D3) 5,000 UNITS CAPSULE PO SCH (09:00)
[2018-02-10] MEDS: GABAPENTIN 400 MG CAPSULE PO SCH ×3 (09:21→16:13)
[2018-02-10] MEDS: ClonazePAM 0.5 MG TABLET PO SCH ×3 (09:21→16:13)
[2018-02-10] MEDS: PALIPERIDONE 6 MG ER TABLET PO SCH ×2 (09:21→20:38)
[2018-02-10] MEDS: NICOTINE 21 MG/24 HOUR PATCH TD SCH (09:23)
[2018-02-10 16:59] VITALS: BP 137/91
[2018-02-11] MEDS: LEVOTHYROXINE SODIUM 200 MCG TABLET PO SCH (06:49)
[2018-02-11 08:00] VITALS: BP 105/61
[2018-02-11] MEDS: ClonazePAM 0.5 MG TABLET PO SCH ×3 (08:59→17:00)
[2018-02-11] MEDS: NICOTINE 21 MG/24 HOUR PATCH TD SCH (08:59)
[2018-02-11] MEDS: PALIPERIDONE 6 MG ER TABLET PO SCH ×2 (08:59→20:19)
[2018-02-11] MEDS: FLUTICASONE/VILANTEROL 200-25 MCG/INH INHALER [14] IH SCH (09:00)
[2018-02-11] MEDS: CHOLECALCIFEROL (VIT D3) 5,000 UNITS CAPSULE PO SCH (09:00)
[2018-02-11] MEDS: GABAPENTIN 400 MG CAPSULE PO SCH ×3 (09:00→17:00)
[2018-02-11 16:54] VITALS: BP 128/79
[2018-02-12] MEDS: LEVOTHYROXINE SODIUM 200 MCG TABLET PO SCH (06:15)
[2018-02-12 08:48] VITALS: BP 124/87
[2018-02-12] MEDS: FLUTICASONE/VILANTEROL 200-25 MCG/INH INHALER [14] IH SCH (09:00)
[2018-02-12] MEDS: GABAPENTIN 400 MG CAPSULE PO SCH ×3 (09:00→16:26)
[2018-02-12] MEDS: CHOLECALCIFEROL (VIT D3) 5,000 UNITS CAPSULE PO SCH (09:00)
[2018-02-12] MEDS: PALIPERIDONE 6 MG ER TABLET PO SCH ×2 (09:29→21:05)
[2018-02-12] MEDS: NICOTINE 21 MG/24 HOUR PATCH TD SCH (09:29)
[2018-02-12] MEDS: ClonazePAM 0.5 MG TABLET PO SCH ×3 (09:29→16:25)
[2018-02-12] MEDS: MUPIROCIN CALCIUM 2% 22 GM OINTMENT NASAL SCH (16:25)
[2018-02-12 16:34] VITALS: BP 120/68
[2018-02-13] MEDS: LEVOTHYROXINE SODIUM 200 MCG TABLET PO SCH (06:57)
[2018-02-13 08:52] VITALS: BP 123/52
[2018-02-13] MEDS: MUPIROCIN CALCIUM 2% 22 GM OINTMENT NASAL SCH ×2 (09:00→16:21)
[2018-02-13] MEDS: GABAPENTIN 400 MG CAPSULE PO SCH ×3 (09:00→16:21)
[2018-02-13] MEDS: CHOLECALCIFEROL (VIT D3) 5,000 UNITS CAPSULE PO SCH (09:00)
[2018-02-13] MEDS: FLUTICASONE/VILANTEROL 200-25 MCG/INH INHALER [14] IH SCH (09:00)
[2018-02-13] MEDS: PALIPERIDONE 6 MG ER TABLET PO SCH ×2 (09:29→20:10)
[2018-02-13] MEDS: ClonazePAM 0.5 MG TABLET PO SCH ×3 (09:29→16:21)
[2018-02-13] MEDS: NICOTINE 21 MG/24 HOUR PATCH TD SCH (10:34)
[2018-02-13 17:53] VITALS: BP 137/90
[2018-02-14] MEDS: LEVOTHYROXINE SODIUM 200 MCG TABLET PO SCH (06:53)
[2018-02-14] MEDS: MUPIROCIN CALCIUM 2% 22 GM OINTMENT NASAL SCH ×2 (09:00→16:26)
[2018-02-14] MEDS: CHOLECALCIFEROL (VIT D3) 5,000 UNITS CAPSULE PO SCH (09:00)
[2018-02-14] MEDS: GABAPENTIN 400 MG CAPSULE PO SCH ×3 (09:00→16:26)
[2018-02-14] MEDS: FLUTICASONE/VILANTEROL 200-25 MCG/INH INHALER [14] IH SCH (09:00)
[2018-02-14] MEDS: PALIPERIDONE 6 MG ER TABLET PO SCH ×2 (09:03→20:08)
[2018-02-14] MEDS: ClonazePAM 0.5 MG TABLET PO SCH ×3 (09:03→16:26)
[2018-02-14] MEDS: NICOTINE 21 MG/24 HOUR PATCH TD SCH (09:06)
[2018-02-14 13:03] VITALS: BP 123/87
[2018-02-14 17:34] VITALS: BP 144/86
[2018-02-15] MEDS: LEVOTHYROXINE SODIUM 200 MCG TABLET PO SCH (06:34)
[2018-02-15] MEDS: MUPIROCIN CALCIUM 2% 22 GM OINTMENT NASAL SCH ×2 (09:00→17:00)
[2018-02-15] MEDS: GABAPENTIN 400 MG CAPSULE PO SCH ×3 (09:00→17:00)
[2018-02-15] MEDS: FLUTICASONE/VILANTEROL 200-25 MCG/INH INHALER [14] IH SCH (09:00)
[2018-02-15] MEDS: CHOLECALCIFEROL (VIT D3) 5,000 UNITS CAPSULE PO SCH (09:00)
[2018-02-15] MEDS: PALIPERIDONE 6 MG ER TABLET PO SCH ×2 (09:34→20:43)
[2018-02-15] MEDS: NICOTINE 21 MG/24 HOUR PATCH TD SCH (09:34)
[2018-02-15] MEDS: ClonazePAM 0.5 MG TABLET PO SCH ×4 (09:34→18:00)
[2018-02-15 09:54] VITALS: BP 112/66
[2018-02-15] MEDS ORDERED: TUBERCULIN, PURIFIED PROTEIN DERIVATIVE 5 TU/0.1 ML SYG ID ONE (14:30)
[2018-02-15 16:33] VITALS: BP 129/79
[2018-02-16] MEDS: LEVOTHYROXINE SODIUM 200 MCG TABLET PO SCH (06:53)
[2018-02-16] MEDS: FLUTICASONE/VILANTEROL 200-25 MCG/INH INHALER [14] IH SCH (09:00)
[2018-02-16] MEDS: MUPIROCIN CALCIUM 2% 22 GM OINTMENT NASAL SCH ×2 (09:00→15:58)
[2018-02-16] MEDS: GABAPENTIN 400 MG CAPSULE PO SCH ×3 (09:00→15:58)
[2018-02-16] MEDS: CHOLECALCIFEROL (VIT D3) 5,000 UNITS CAPSULE PO SCH (09:00)
[2018-02-16] MEDS: ClonazePAM 0.5 MG TABLET PO SCH ×3 (09:10→15:58)
[2018-02-16] MEDS: PALIPERIDONE 6 MG ER TABLET PO SCH ×2 (09:10→20:13)
[2018-02-16] MEDS: NICOTINE 21 MG/24 HOUR PATCH TD SCH (09:12)
[2018-02-16 10:00] VITALS: BP 158/92
[2018-02-16 19:20] VITALS: BP 142/85
[2018-02-17] MEDS: LEVOTHYROXINE SODIUM 200 MCG TABLET PO SCH (06:36)
[2018-02-17] MEDS: GABAPENTIN 400 MG CAPSULE PO SCH ×3 (09:00→17:00)
[2018-02-17] MEDS: CHOLECALCIFEROL (VIT D3) 5,000 UNITS CAPSULE PO SCH (09:00)
[2018-02-17] MEDS: FLUTICASONE/VILANTEROL 200-25 MCG/INH INHALER [14] IH SCH (09:00)
[2018-02-17] MEDS: MUPIROCIN CALCIUM 2% 22 GM OINTMENT NASAL SCH ×2 (09:00→17:00)
[2018-02-17] MEDS: NICOTINE 21 MG/24 HOUR PATCH TD SCH (09:09)
[2018-02-17] MEDS: PALIPERIDONE 6 MG ER TABLET PO SCH ×2 (09:09→20:49)
[2018-02-17] MEDS: ClonazePAM 0.5 MG TABLET PO SCH ×3 (09:09→16:50)
[2018-02-17 10:01] VITALS: BP 120/85
[2018-02-17 16:45] VITALS: BP 128/77
[2018-02-18] MEDS: LEVOTHYROXINE SODIUM 200 MCG TABLET PO SCH (06:37)
[2018-02-18 08:30] VITALS: BP 126/87
[2018-02-18] MEDS: PALIPERIDONE 6 MG ER TABLET PO SCH ×2 (08:57→20:33)
[2018-02-18] MEDS: ClonazePAM 0.5 MG TABLET PO SCH ×3 (08:57→16:58)
[2018-02-18] MEDS: GABAPENTIN 400 MG CAPSULE PO SCH ×3 (09:00→17:00)
[2018-02-18] MEDS: FLUTICASONE/VILANTEROL 200-25 MCG/INH INHALER [14] IH SCH (09:00)
[2018-02-18] MEDS: NICOTINE 21 MG/24 HOUR PATCH TD SCH (09:00)
[2018-02-18] MEDS: CHOLECALCIFEROL (VIT D3) 5,000 UNITS CAPSULE PO SCH (09:00)
[2018-02-18 16:00] VITALS: BP 107/76
[2018-02-19] MEDS: LEVOTHYROXINE SODIUM 200 MCG TABLET PO SCH (06:44)
[2018-02-19] MEDS: FLUTICASONE/VILANTEROL 200-25 MCG/INH INHALER [14] IH SCH (08:05)
[2018-02-19] MEDS: GABAPENTIN 400 MG CAPSULE PO SCH ×3 (08:06→17:00)
[2018-02-19] MEDS: CHOLECALCIFEROL (VIT D3) 5,000 UNITS CAPSULE PO SCH (08:06)
[2018-02-19] MEDS: PALIPERIDONE 6 MG ER TABLET PO SCH ×2 (08:06→20:19)
[2018-02-19] MEDS: NICOTINE 21 MG/24 HOUR PATCH TD SCH (08:06)
[2018-02-19] MEDS: ClonazePAM 0.5 MG TABLET PO SCH ×3 (08:06→17:00)
[2018-02-19 10:04] VITALS: BP 126/70
[2018-02-19 16:24] VITALS: BP 160/99
[2018-02-20] MEDS: LEVOTHYROXINE SODIUM 200 MCG TABLET PO SCH (06:41)
[2018-02-20] MEDS: NICOTINE 21 MG/24 HOUR PATCH TD SCH ×2 (09:00→09:52)
[2018-02-20] MEDS: ClonazePAM 0.5 MG TABLET PO SCH ×2 (09:00→12:31)
[2018-02-20] MEDS: CHOLECALCIFEROL (VIT D3) 5,000 UNITS CAPSULE PO SCH (09:00)
[2018-02-20] MEDS: PALIPERIDONE 6 MG ER TABLET PO SCH (09:00)
[2018-02-20] MEDS: GABAPENTIN 400 MG CAPSULE PO SCH ×2 (09:00→12:31)
[2018-02-20] MEDS: FLUTICASONE/VILANTEROL 200-25 MCG/INH INHALER [14] IH SCH (09:00)
[2018-02-20] MEDS ORDERED: CLON.5 PO (10:10)
[2018-02-20] MEDS ORDERED: PALI6 PO (10:11)
[2018-02-20] MEDS ORDERED: GABA-533 PO (10:11)
[2018-02-20] MEDS ORDERED: CHLO50I IM (10:13)
[2018-02-20] MEDS ORDERED: LORA2TAB2 PO (10:14)
[2018-02-20] MEDS ORDERED: QUET100T PO (10:15)
[2018-02-20 10:46] VITALS: BP 135/84
[2018-02-20] MEDS ORDERED: CHOL50004 PO (11:41)
[2018-02-20] MEDS ORDERED: LEVO200 PO (11:42)
[2018-02-20] MEDS ORDERED: FLUT1BLS IH (11:42)
== END 2018-02-20 13:00 | DRG 885 ==
LOC: EMS 11:24 → B3A 15:53 → 3EC 11-15 22:50 → 3EI 11-21 18:42
PROVIDERS: ADMIT Psychiatry & Neurology Psychiatry; ATTEND Psychiatry & Neurology Psychiatry
PROC: 3E0234Z Introduction of Serum, Toxoid and Vaccine into Muscle, Percutaneous Approach (ICD-10-PCS; principal; 2017-09-01)
DX: F20.0 Paranoid schizophrenia (principal); R45.851 Suicidal ideations; Z59.0 Homelessness; E03.9 Hypothyroidism, unspecified; I10 Essential (primary) hypertension; K21.9 Gastro-esophageal reflux disease without esophagitis; J44.9 Chronic obstructive pulmonary disease, unspecified; Z88.8 Allergy status to other drugs, medicaments and biological substances; F12.90 Cannabis use, unspecified, uncomplicated; D64.9 Anemia, unspecified; Z91.14 Patient's other noncompliance with medication regimen; Z23 Encounter for immunization; F17.200 Nicotine dependence, unspecified, uncomplicated; Z79.899 Other long term (current) drug therapy; Z91.19 Patient's noncompliance with other medical treatment and regimen; Z91.5 Personal history of self-harm; F32.9 Major depressive disorder, single episode, unspecified
CPT/HCPCS: 70470; 70553; 76536; 80074; 82306; 84439; 84443; 84445; 86376; 86800; 87081; 90471; 93005; 99285; G0480; J1200; J1630; J2060; J3230; J3535

== ENCOUNTER 2023-07-13 23:38 | Emergency (ER) | payer MEDICARE, OTHER ==
[~2023-07-13] VITALS: Ht 182.9 cm; Wt 92.0 kg
[~2023-07-13 23:38] MED LIST changes: +AMLO-258 PO; +ASEN10TA14 SL; -BENZ2TAB10 PO; +BISM-156 PO; +CHLO50I IM; +CHLO50TA61 PO; +CLON-592 PO; +CLON0.1T2 PO; +DIPH-543 PO; +DIPH50DI IM; +DOCU-412 PO; -HALO10 PO; +HALO5VIA16 IM; +LEVO200 PO; +LISI-892 PO; -PALI234D IM; +PERP2TAB PO
[2023-07-13 23:55] VITALS: TEMP 98
[2023-07-14 01:35] LABS: APPEARANCE,URINE CLEAR (CLEAR); BILIRUBIN,URINE NEGATIVE (NEGATIVE); COLOR,URINE COLORLESS (YELLOW); GLUCOSE, URINE (UA) NEGATIVE (NEGATIVE); KETONES,URINE NEGATIVE (NEGATIVE); LEUKOCYTE ESTERASE ,URINE NEGATIVE (NEGATIVE); NITRATE,URINE NEGATIVE (NEGATIVE); OCCULT BLOOD,URINE NEGATIVE (NEGATIVE); PROTEIN,URINE 30-70 mg/dL (NEGATIVE); SPECIFIC GRAVITIY, URINE 1.003 (1.003-1.030); UROBILINOGEN,URINE <=1.0 mg/dL (<=1.0)
[2023-07-14 01:40] LABS: AMPHET/METH SCREEN,URINE NEGATIVE (NEGATIVE); BARBITURATE SCREEN, URINE NEGATIVE (NEGATIVE); BENZODIAZEPINES SCREEN,URINE NEGATIVE (NEGATIVE); CANNABINOID SCREEN,URINE NEGATIVE (NEGATIVE); COCAINE SCREEN,URINE NEGATIVE (NEGATIVE); METHADONE SCREEN, URINE NEGATIVE (NEGATIVE); OPIATE SCREEN,URINE NEGATIVE (NEGATIVE); PHENCYCLIDINE SCREEN,URINE NEGATIVE (NEGATIVE)
[2023-07-14 01:42] LABS: ALCOHOL, URINE DRUG SCREEN NEGATIVE (NEGATIVE)
[2023-07-14 04:02] VITALS: BP 155/83; PULSE 77; RESP 17
[2023-07-14 04:34] LABS: BASOPHILS % (AUTO) 1.1 % (0.0-2.0); EOSINOPHILS % (AUTO) 2.6 % (1.0-6.0); HEMATOCRIT 33.3 % (41-53); HEMOGLOBIN 10.7 g/dL (13.5-17.5); LYMPHOCYTES # (AUTO) 0.9 K/uL (1.0-4.8); MEAN CORPUSCULAR HGB CONC 32.3 G/dL (31.0-37.0); MEAN CORPUSCULAR VOLUME 81 fL (80-100); MONOCYTES # (AUTO) 0.4 K/uL (0.1-1.0); MONOCYTES % (AUTO) 8.4 % (2.0-9.0); NEUTROPHILS # (AUTO) 3.3 K/uL (1.8-7.7); NEUTROPHILS % (AUTO) 68.9 % (40.0-70.0); PLATELET COUNT (AUTO) 255 K/uL (150-450); RED BLOOD CELL COUNT(AUTO) 4.13 MIL/uL (4.50-5.90); RED CELL DISTRIBUTION WIDTH 17.3 % (11.5-14.5); WHITE BLOOD COUNT (AUTO) 4.8 K/uL (4.5-11.0)
[2023-07-14 04:45] LABS: ALCOHOL, BLOOD (SERUM) < 3 mg/dL (0-10)
[2023-07-14 04:52] LABS: ANION GAP 6 mmol/L (8-16); CARBON DIOXIDE 28 mmol/L (22-29); CHLORIDE 108 mmol/L (98-107); CREATININE 1.38 mg/dL (0.60-1.30); GLOMERULAR FILTR. RATE CALC 52 mL/min (>60); GLUCOSE,RANDOM 96 mg/dL (70-110); POTASSIUM 4.2 mmol/L (3.5-5.1); SODIUM SERUM 142 mmol/L (136-145); UREA NITROGEN, BLOOD 19 mg/dL (7-18)
[2023-07-14 04:58] LABS: ALANINE AMINOTRANSFERASE 6 U/L (12-78); ALBUMIN 2.7 g/dL (3.4-5.0); ALKALINE PHOSPHATASE 76 U/L (46-116); ASPARTATE AMINOTRANSFERASE 21 U/L (15-37); BILIRUBIN,TOTAL 0.3 mg/dL (0.1-1.0); TOTAL PROTEIN, SERUM 6.2 g/dL (6.4-8.2)
[2023-07-14 07:58] LABS: COVID AG,FIA SOURCE NASAL SWAB
[2023-07-14 08:34] LABS: SARS-COV2 (COVID) ANTIGEN,FIA Negative (Negative)
== END 2023-07-14 16:10 | disposition home or self-care (01) ==
LOC: EMS 23:39
DX: F20.0 Paranoid schizophrenia (principal); F41.9 Anxiety disorder, unspecified; F32.A Depression, unspecified; F20.9 Schizophrenia, unspecified; F17.210 Nicotine dependence, cigarettes, uncomplicated; F12.90 Cannabis use, unspecified, uncomplicated; F10.90 Alcohol use, unspecified, uncomplicated; Z98.890 Other specified postprocedural states; Z88.8 Allergy status to other drugs, medicaments and biological substances; Z43.3 Encounter for attention to colostomy; Z20.822 Contact with and (suspected) exposure to COVID-19
CPT/HCPCS: 99283; 87426; 80053; 81003; 85025; 36415; 80307; G0480

== ENCOUNTER 2023-10-19 18:36 | Inpatient (IN) | payer MEDICARE, MEDICAID ==
[~2023-10-19] VITALS: Ht 182.9 cm; Wt 99.8 kg
[2023-10-19] MEDS: HALOPERIDOL LACTATE 5 MG/ML VIAL IM ONE (20:50)
[2023-10-19] MEDS: LORazepam 2 MG/ML VIAL IM ONE (20:50)
[2023-10-19] MEDS: DiphenhydrAMINE HCL 50 MG/ML VIAL IM ONE (20:50)
[2023-10-19 21:30] LABS: BASOPHILS % (AUTO) 0.6 % (0.0-2.0); EOSINOPHILS % (AUTO) 1.6 % (1.0-6.0); HEMATOCRIT 39.1 % (41-53); LYMPHOCYTES # (AUTO) 1.1 K/uL (1.0-4.8); LYMPHOCYTES % (AUTO) 15.3 % (22.0-44.0); MEAN CORPUSCULAR HEMOGLOBIN 28.1 pg (26.0-34.0); MEAN CORPUSCULAR HGB CONC 33.3 G/dL (31.0-37.0); MEAN CORPUSCULAR VOLUME 84 fL (80-100); MONOCYTES # (AUTO) 0.4 K/uL (0.1-1.0); MONOCYTES % (AUTO) 6.1 % (2.0-9.0); NEUTROPHILS # (AUTO) 5.4 K/uL (1.8-7.7); NEUTROPHILS % (AUTO) 76.4 % (40.0-70.0); PLATELET COUNT (AUTO) 244 K/uL (150-450); RED BLOOD CELL COUNT(AUTO) 4.63 MIL/uL (4.50-5.90); WHITE BLOOD COUNT (AUTO) 7.1 K/uL (4.5-11.0)
[2023-10-19 21:38] LABS: PH,URINE DRUG SCREEN 6.5 (5.0-8.0)
[2023-10-19 21:40] LABS: ANION GAP 9 mmol/L (8-16); CALCIUM, TOTAL 8.8 mg/dL (8.8-10.5); CARBON DIOXIDE 28 mmol/L (22-29); CHLORIDE 107 mmol/L (98-107); CREATININE 1.63 mg/dL (0.60-1.30); GLOMERULAR FILTR. RATE CALC 43 mL/min (>60); GLUCOSE,RANDOM 91 mg/dL (70-110); POTASSIUM 4.1 mmol/L (3.5-5.1); SODIUM SERUM 144 mmol/L (136-145); UREA NITROGEN, BLOOD 24 mg/dL (7-18)
[2023-10-19 21:44] LABS: ALCOHOL, URINE DRUG SCREEN NEGATIVE (NEGATIVE); AMPHET/METH SCREEN,URINE NEGATIVE (NEGATIVE); BARBITURATE SCREEN, URINE NEGATIVE (NEGATIVE); BENZODIAZEPINES SCREEN,URINE NEGATIVE (NEGATIVE); CANNABINOID SCREEN,URINE NEGATIVE (NEGATIVE); COCAINE SCREEN,URINE NEGATIVE (NEGATIVE); METHADONE SCREEN, URINE NEGATIVE (NEGATIVE); OPIATE SCREEN,URINE NEGATIVE (NEGATIVE); PHENCYCLIDINE SCREEN,URINE NEGATIVE (NEGATIVE)
[2023-10-19 21:46] LABS: ALANINE AMINOTRANSFERASE 15 U/L (12-78); ALKALINE PHOSPHATASE 82 U/L (46-116); ASPARTATE AMINOTRANSFERASE 31 U/L (15-37); BILIRUBIN,TOTAL 0.4 mg/dL (0.1-1.0); TOTAL PROTEIN, SERUM 6.6 g/dL (6.4-8.2)
[2023-10-19 21:47] LABS: ALCOHOL, BLOOD (SERUM) < 3 mg/dL (0-10)
[2023-10-19] MEDS: ChlorproMAZINE HCL 50 MG/2 ML AMP IM ONE (23:47)
[2023-10-20 01:37] LABS: COVID AG,FIA SOURCE NASAL SWAB
[2023-10-20 02:04] LABS: SARS-COV2 (COVID) ANTIGEN,FIA Negative (Negative)
[2023-10-20] MEDS: LORazepam 1 MG TABLET PO ONE (20:39)
[2023-10-20 23:55] VITALS: RESP 18
[2023-10-21] MEDS: LORazepam 2 MG/ML VIAL IM ONE (01:19)
[2023-10-21] MEDS: ChlorproMAZINE HCL 50 MG/2 ML AMP IM ONE (01:20)
[2023-10-21] MEDS: DiphenhydrAMINE HCL 50 MG/ML VIAL IM ONE (01:20)
[2023-10-21] MEDS: INFLUENZA VIRUS VACCINE QVS 2023-24 (6MO+)/PF 60 MCG/0.5 ML SYRINGE IM. ONE (03:45)
[2023-10-21] MEDS: LEVOTHYROXINE SODIUM 200 MCG TABLET PO SCH (06:50)
[2023-10-21] MEDS ORDERED: MAGNESIUM HYDROXIDE SUSPENSION 30 ML UDCUP PO PRN (07:30)
[2023-10-21] MEDS ORDERED: ACETAMINOPHEN 325 MG TABLET PO PRN (07:30)
[2023-10-21] MEDS ORDERED: ALBUTEROL SULFATE HFA 90 MCG/PUFF 8 GM INHALER IH PRN (07:30)
[2023-10-21] MEDS ORDERED: NICOTINE 14 MG/24 HOUR PATCH TD PRN (07:30)
[2023-10-21] MEDS ORDERED: ONDANSETRON HCL 4 MG TABLET PO PRN (07:30)
[2023-10-21] MEDS ORDERED: DOCUSATE SODIUM 100 MG CAPSULE PO PRN (07:30)
[2023-10-21] MEDS ORDERED: PETROLATUM,WHITE 28 GM JELLY TP PRN (07:30)
[2023-10-21] MEDS ORDERED: CloNIDine HCL 0.1 MG TABLET PO PRN (07:30)
[2023-10-21] MEDS ORDERED: LOPERAMIDE HCL 2 MG CAPSULE PO PRN (07:30)
[2023-10-21] MEDS ORDERED: IBUPROFEN 400 MG TABLET PO PRN (07:30)
[2023-10-21] MEDS: AmLODIPine BESYLATE 10 MG TABLET PO SCH (08:28)
[2023-10-21 08:30] VITALS: BP 165/97; PULSE 102; RESP 18; TEMP 96.9; O2SAT 94
[2023-10-21] MEDS: LORazepam 2 MG TABLET PO PRN (08:41)
[2023-10-21] MEDS: PANTOPRAZOLE SODIUM 40 MG DR TABLET PO SCH (09:00)
[2023-10-21] MEDS: FLUTICASONE/VILANTEROL 200-25 MCG/INH INHALER [14] IH SCH (09:00)
[2023-10-21] MEDS: LISINOPRIL 5 MG TABLET PO SCH (09:00)
[2023-10-21] MEDS: CHOLECALCIFEROL (VIT D3) 5,000 [125 MCG] UNITS CAPSULE PO SCH (09:00)
[2023-10-21] MEDS: MULTIVITAMINS WITH MINERALS, THERAPEUTIC TABLET PO SCH (09:00)
[2023-10-21] MEDS ORDERED: PERPHENAZINE 2 MG TABLET PO SCH (10:30)
[2023-10-21] MEDS: PALIPERIDONE 6 MG ER TABLET PO SCH (10:30)
[2023-10-21] MEDS: PERPHENAZINE 8 MG TABLET PO SCH (11:00)
[2023-10-21] MEDS: ClonazePAM 0.5 MG TABLET PO SCH (12:30)
[2023-10-21] MEDS: HALOPERIDOL 5 MG TABLET PO PRN (12:30)
[2023-10-21] MEDS: MELATONIN 5 MG TABLET PO SCH (20:52)
[2023-10-21] MEDS: GABAPENTIN 300 MG CAPSULE PO SCH (20:52)
[2023-10-21 21:39] VITALS: RESP 18
[2023-10-22 08:37] VITALS: PULSE 101; RESP 18; TEMP 97.8; O2SAT 95
[2023-10-22 20:18] VITALS: RESP 18; TEMP 98.1
[2023-10-23 08:05] VITALS: RESP 18; TEMP 98
[2023-10-24 07:58] LABS: FREE T4 (FREE THYROXINE) 0.87 ng/dL (0.76-1.46); T4 (THYROXINE) 7.3 mcg/dL (4.7-13.3); THYROID STIMULATING HORMONE 23.57 uIU/mL (0.36-3.74)
[2023-10-24 08:02] LABS: HEMOGLOBIN A1C 5.3 % (3.8-5.6)
[2023-10-24 08:34] VITALS: BP 160/75; PULSE 84; RESP 18; TEMP 98.2; O2SAT 98
[2023-10-24 13:10] VITALS: BP 167/90; PULSE 78; RESP 18; TEMP 98.4; O2SAT 98
[2023-10-24] MEDS: RisperiDONE ER SUSPENSION 120 MG PRE-FILLED SYRINGE SQ SCH (13:19)
[2023-10-24] MEDS ORDERED: TRIL8 PO (18:32)
[2023-10-24] MEDS ORDERED: LEVO175T9 PO (18:32)
[2023-10-24] MEDS ORDERED: BISM-157 PO (18:34)
[2023-10-24] MEDS ORDERED: DIPH-1243 PO (18:34)
[2023-10-24 20:22] VITALS: BP 106/65; PULSE 80; RESP 18; TEMP 97.7; O2SAT 97
[2023-10-25 08:02] VITALS: BP 155/82; PULSE 77; RESP 18; TEMP 97.7; O2SAT 98
[2023-10-25] MEDS: LISINOPRIL 10 MG TABLET PO SCH (08:27)
[2023-10-25 20:39] VITALS: BP 149/91; PULSE 94; RESP 18; TEMP 97.7; O2SAT 97
[2023-10-26] MEDS: DiphenhydrAMINE HCL 25 MG CAPSULE PO ONE (08:41)
[2023-10-26 09:33] VITALS: BP 142/73; PULSE 100; RESP 18; TEMP 98.6; O2SAT 96
[2023-10-26 22:11] VITALS: BP 105/60; PULSE 84; RESP 18; TEMP 97.3; O2SAT 98
[2023-10-27 08:00] VITALS: BP 118/71; PULSE 87; RESP 18; TEMP 97.7
[2023-10-27 21:58] VITALS: RESP 18
[2023-10-28 10:51] VITALS: BP 159/91; PULSE 93; RESP 17; TEMP 97.5
[2023-10-28 20:38] VITALS: BP 148/88; PULSE 94; RESP 18; TEMP 97.6; O2SAT 97
[2023-10-29 08:11] VITALS: RESP 18
[2023-10-29 20:49] VITALS: BP 139/76; PULSE 89; RESP 18; TEMP 97.5
[2023-10-30] MEDS: LEVOTHYROXINE SODIUM 50 MCG TABLET PO SCH (06:55)
[2023-10-30 08:06] VITALS: BP 146/63; PULSE 74; RESP 17; TEMP 97.7; O2SAT 96
[2023-10-30 08:31] LABS: CALCIUM, TOTAL 9.4 mg/dL (8.8-10.5); CREATININE 1.58 mg/dL (0.60-1.30); POTASSIUM 4.9 mmol/L (3.5-5.1)
[2023-10-30 20:16] VITALS: BP 134/81; PULSE 84; RESP 18; TEMP 97.6; O2SAT 98
[2023-10-31 08:11] VITALS: RESP 18
[2023-10-31 20:22] VITALS: BP 132/75; PULSE 79; RESP 18; TEMP 97.7
[2023-11-01 07:12] LABS: CALCIUM, TOTAL 9.4 mg/dL (8.8-10.5); CREATININE 1.7 mg/dL (0.60-1.30); POTASSIUM 5.3 mmol/L (3.5-5.1)
[2023-11-01 08:11] VITALS: BP 103/61; PULSE 83; RESP 18; TEMP 98; O2SAT 99
[2023-11-01] MEDS: SODIUM POLYSTYRENE SULFONATE 15 GM/60 ML SUSPENSION BOTTLE PO ONE (16:42)
[2023-11-01 21:47] VITALS: BP 117/71; PULSE 84; RESP 18; TEMP 97.5; O2SAT 99
[2023-11-02 08:47] VITALS: BP 126/70; PULSE 80; RESP 17; TEMP 98.4; O2SAT 96
[2023-11-02 09:02] VITALS: BP 126/70; PULSE 80; RESP 17; TEMP 98.4; O2SAT 96
[2023-11-02 20:32] VITALS: BP 147/81; PULSE 83; RESP 18; TEMP 97.6; O2SAT 98
[2023-11-03 08:46] VITALS: BP 106/66; PULSE 63; RESP 16; TEMP 97.4; O2SAT 98
[2023-11-03 23:47] VITALS: RESP 18
[2023-11-04 09:46] VITALS: BP 129/72; PULSE 83; RESP 18; TEMP 97; O2SAT 97
[2023-11-04] MEDS: LORazepam 0.5 MG TABLET PO SCH (17:28)
[2023-11-04 20:04] VITALS: BP 110/58; PULSE 73; RESP 18; TEMP 98; O2SAT 98
[2023-11-05 21:00] VITALS: RESP 18
[2023-11-06 08:08] VITALS: BP 107/54; PULSE 67; RESP 18; TEMP 97.9; O2SAT 96
[2023-11-06 20:40] VITALS: BP 145/76; PULSE 72; RESP 18; TEMP 97.5
[2023-11-07 08:55] VITALS: BP 98/56; PULSE 69; RESP 17; TEMP 98.4; O2SAT 95
[2023-11-07] MEDS: ClonazePAM 0.5 MG TABLET PO SCH (08:58)
[2023-11-07 20:46] VITALS: BP 149/80; PULSE 69; RESP 18; TEMP 98.2; O2SAT 96
[2023-11-08] MEDS: DIVALPROEX SODIUM 500 MG DR TABLET PO SCH (09:00)
[2023-11-08 09:13] VITALS: BP 128/75; PULSE 74; RESP 17; TEMP 97.1; O2SAT 95
[2023-11-08 20:05] VITALS: BP 135/80; PULSE 85; RESP 18; TEMP 97.6; O2SAT 96
[2023-11-09 08:12] VITALS: BP 91/55; PULSE 67; RESP 17; TEMP 98; O2SAT 97
[2023-11-09 20:15] VITALS: BP 145/77; PULSE 81; RESP 18; TEMP 98.4; O2SAT 98
[2023-11-10 09:15] VITALS: BP 149/75; PULSE 83; RESP 18; TEMP 97.6; O2SAT 95
[2023-11-10 21:01] VITALS: BP 141/72; PULSE 78; RESP 18; TEMP 97.7
[2023-11-11 10:01] VITALS: BP 155/92; PULSE 79; RESP 19; TEMP 97.6
[2023-11-12 08:40] VITALS: BP 152/102; PULSE 81; RESP 18; TEMP 97.5
[2023-11-12 22:15] VITALS: BP 140/80; PULSE 80; RESP 18; TEMP 97.8; O2SAT 97
[2023-11-13 08:37] VITALS: BP 111/66; PULSE 66; RESP 17; TEMP 97.4; O2SAT 97
[2023-11-14 13:16] VITALS: RESP 18
[2023-11-14 21:10] VITALS: RESP 18
[2023-11-15 08:30] VITALS: BP 107/63; PULSE 77; RESP 18; TEMP 97.9; O2SAT 96
[2023-11-15 21:45] VITALS: BP 130/72; PULSE 79; RESP 18; TEMP 98.8; O2SAT 97
[2023-11-16 08:40] VITALS: BP 127/71; PULSE 79; RESP 18; TEMP 98.9; O2SAT 96
[2023-11-16 20:08] VITALS: BP 138/71; PULSE 94; RESP 18; TEMP 98.4; O2SAT 96
[2023-11-17 09:10] VITALS: BP 90/57; PULSE 71; RESP 16; TEMP 97.8; O2SAT 96
[2023-11-17 21:37] VITALS: BP 100/62; PULSE 74; RESP 18; TEMP 98
[2023-11-18 10:32] VITALS: RESP 18
[2023-11-18 20:50] VITALS: RESP 18
[2023-11-19 19:12] VITALS: BP 131/86; PULSE 96; RESP 18; TEMP 97.3; O2SAT 99
[2023-11-19 20:24] VITALS: BP 128/76; PULSE 75; RESP 18; TEMP 97.5
[2023-11-20 08:34] VITALS: BP 147/91; PULSE 81; RESP 18; TEMP 98; O2SAT 97
[2023-11-20 20:49] VITALS: BP 132/74; PULSE 80; RESP 18; TEMP 98.1; O2SAT 96
[2023-11-21 08:08] VITALS: BP 139/80; PULSE 74; RESP 18; TEMP 98.7; O2SAT 96
[2023-11-21 21:43] VITALS: BP 149/80; PULSE 84; RESP 18; TEMP 97.5; O2SAT 97
[2023-11-22 09:00] VITALS: BP 148/86; PULSE 74; RESP 18; TEMP 97; O2SAT 97
[2023-11-22] MEDS: VALPROIC ACID 250 MG/5 ML SOLUTION UDCUP PO SCH (20:35)
[2023-11-22 20:53] VITALS: BP 140/83; PULSE 54; RESP 19; TEMP 97.4; O2SAT 98
[2023-11-23 08:25] VITALS: RESP 18
[2023-11-23 21:55] VITALS: BP 109/63; PULSE 77; RESP 18; TEMP 97.5; O2SAT 96
[2023-11-24 09:39] VITALS: BP 156/88; PULSE 95; RESP 18; TEMP 98; O2SAT 96
[2023-11-24 20:30] VITALS: BP 143/78; PULSE 75; RESP 18; TEMP 96.8; O2SAT 97
[2023-11-25 09:00] VITALS: BP 121/67; PULSE 78; RESP 18; TEMP 97.9; O2SAT 96
[2023-11-25 21:34] VITALS: BP 128/77; PULSE 80; RESP 20; TEMP 98.1; O2SAT 98
[2023-11-26 10:11] VITALS: BP 130/75; PULSE 80; RESP 18; TEMP 98; O2SAT 97
[2023-11-26 20:51] VITALS: BP 139/74; PULSE 75; RESP 18; TEMP 97.9
[2023-11-27 10:21] VITALS: BP 129/77; PULSE 85; RESP 18; TEMP 98.4; O2SAT 96
[2023-11-28 09:28] VITALS: BP 131/76; PULSE 72; RESP 18; TEMP 97.9; O2SAT 98
[2023-11-28 20:52] VITALS: BP 130/75; PULSE 75; RESP 18; TEMP 97.8; O2SAT 98
[2023-11-29 08:12] VITALS: BP 156/85; PULSE 79; RESP 16; TEMP 98.3; O2SAT 99
[2023-11-29] MEDS: VALPROIC ACID 250 MG/5 ML SOLUTION UDCUP PO SCH (09:00)
[2023-11-29] MEDS: ZOLPIDEM TARTRATE 10 MG TABLET PO PRN (20:52)
[2023-11-29 20:54] VITALS: BP 146/82; PULSE 79; RESP 18; TEMP 98; O2SAT 96
[2023-11-30 08:26] VITALS: BP 122/69; PULSE 66; RESP 17; TEMP 97.9; O2SAT 98
[2023-11-30] MEDS: TUBERCULIN, PURIFIED PROTEIN DERIVATIVE 5 TU/0.1 ML SYRINGE ID ONE (16:45)
[2023-11-30 22:29] VITALS: BP 121/78; PULSE 70; RESP 18; TEMP 97.6; O2SAT 96
[2023-12-01 08:38] VITALS: BP 130/73; PULSE 80; RESP 18; TEMP 98; O2SAT 97
[2023-12-01 21:45] VITALS: BP 126/72; PULSE 78; RESP 18; TEMP 97.8
[2023-12-02 08:50] VITALS: BP 134/75; PULSE 76; RESP 18; TEMP 97.6; O2SAT 98
[2023-12-03 08:00] VITALS: BP 148/87; PULSE 71; RESP 17; TEMP 97.1; O2SAT 96
[2023-12-03 20:56] VITALS: BP 121/70; PULSE 77; RESP 18; TEMP 98.6; O2SAT 97
[2023-12-04 08:00] VITALS: BP 138/80; PULSE 82; RESP 18; TEMP 98; O2SAT 98
[2023-12-04 21:41] VITALS: BP 126/76; PULSE 81; RESP 18; TEMP 98.6; O2SAT 95
[2023-12-05 08:30] VITALS: RESP 18
[2023-12-05 21:19] VITALS: BP 141/87; PULSE 86; RESP 18; TEMP 98; O2SAT 97
[2023-12-06] MEDS: VALPROIC ACID 250 MG/5 ML SOLUTION UDCUP PO SCH (08:43)
[2023-12-06 08:47] VITALS: BP 140/83; PULSE 69; RESP 17; TEMP 97.7; O2SAT 97
[2023-12-06 20:43] VITALS: BP 143/76; PULSE 78; RESP 18; TEMP 97.6; O2SAT 97
[2023-12-07 08:07] VITALS: BP 146/78; PULSE 74; RESP 18; TEMP 98.2; O2SAT 96
[2023-12-08 10:45] VITALS: BP 147/86; PULSE 68; RESP 20; TEMP 98.2; O2SAT 99
[2023-12-08 22:09] VITALS: RESP 18
[2023-12-09 09:07] VITALS: BP 113/68; PULSE 72; RESP 17; TEMP 97.6; O2SAT 97
[2023-12-09 20:32] VITALS: BP 137/77; PULSE 80; RESP 18; TEMP 97.4; O2SAT 98
[2023-12-10 08:12] VITALS: BP 150/80; PULSE 86; RESP 18; TEMP 97.8; O2SAT 97
[2023-12-10 21:20] VITALS: BP 135/71; PULSE 79; RESP 18; TEMP 97.5
[2023-12-11 08:12] VITALS: BP 154/87; PULSE 95; RESP 18; TEMP 98.5; O2SAT 97
[2023-12-12 08:26] VITALS: BP 132/79; PULSE 80; RESP 19; TEMP 97.7; O2SAT 96
[2023-12-12 20:21] VITALS: BP 128/77; PULSE 82; RESP 18; TEMP 97.9; O2SAT 97
[2023-12-13 09:26] VITALS: BP 143/90; PULSE 79; RESP 19; TEMP 98.2; O2SAT 97
[2023-12-13 22:08] VITALS: BP 102/62; PULSE 73; RESP 18; TEMP 98.7; O2SAT 95
[2023-12-14 08:15] VITALS: BP 124/73; PULSE 72; RESP 18; TEMP 98; O2SAT 98
[2023-12-14 20:37] VITALS: BP 115/50; PULSE 70; RESP 19; TEMP 98; O2SAT 96
[2023-12-15 09:03] VITALS: BP 114/67; PULSE 65; RESP 16; TEMP 98.8; O2SAT 96
[2023-12-15 20:47] VITALS: BP 118/70; PULSE 71; RESP 18; TEMP 98.4
[2023-12-16 09:52] VITALS: BP 128/66; PULSE 78; RESP 18; TEMP 98.4; O2SAT 97
[2023-12-16] MEDS: GuaiFENesin/D-METHORPHAN [SUGAR-FREE] 200-20MG/10 ML SYRUP UDCUP PO PRN (20:16)
[2023-12-16 21:24] VITALS: BP 124/70; PULSE 76; RESP 18; TEMP 98.2
[2023-12-17 10:20] VITALS: BP 150/90; PULSE 78; RESP 17; TEMP 98; O2SAT 97
[2023-12-17 20:37] VITALS: BP 134/76; PULSE 72; RESP 18; TEMP 97.8
[2023-12-18 08:01] VITALS: BP 141/83; PULSE 86; RESP 18; TEMP 97.9; O2SAT 98
[2023-12-18 22:02] VITALS: BP 119/64; PULSE 71; RESP 18; TEMP 97.6; O2SAT 97
[2023-12-19 09:18] VITALS: BP 133/74; PULSE 68; RESP 20; TEMP 97.6; O2SAT 95
[2023-12-20 09:25] VITALS: BP 140/74; PULSE 68; RESP 17; TEMP 97.3; O2SAT 95
[2023-12-20 20:15] VITALS: BP 116/72; PULSE 79; RESP 18; TEMP 98.2; O2SAT 96
[2023-12-21 08:38] VITALS: BP 142/81; PULSE 64; RESP 16; TEMP 97.2; O2SAT 97
[2023-12-21 21:05] VITALS: BP 133/83; PULSE 67; RESP 18; TEMP 97.6; O2SAT 97
[2023-12-22 08:49] VITALS: PULSE 18; RESP 18; TEMP 97.7; O2SAT 98
[2023-12-22 20:21] VITALS: BP 134/75; PULSE 75; RESP 18; TEMP 97.7
[2023-12-23 08:16] VITALS: BP 132/78; PULSE 72; RESP 18; TEMP 97.8; O2SAT 98
[2023-12-23 21:25] VITALS: BP 130/78; PULSE 85; RESP 18; TEMP 98; O2SAT 82
[2023-12-24 08:18] VITALS: BP 146/82; PULSE 67; RESP 17; TEMP 97.6; O2SAT 98
[2023-12-24 20:00] VITALS: BP 148/80; PULSE 73; RESP 18; TEMP 98.2; O2SAT 95
[2023-12-25 08:23] VITALS: BP 136/96; PULSE 75; RESP 17; TEMP 98; O2SAT 98
[2023-12-25 20:27] VITALS: BP 135/81; PULSE 72; RESP 18; TEMP 97.1; O2SAT 95
[2023-12-26 08:37] VITALS: BP 149/83; PULSE 64; RESP 16; TEMP 97.5; O2SAT 98
[2023-12-26 21:25] VITALS: BP 117/71; PULSE 72; RESP 18; TEMP 97.5; O2SAT 98
[2023-12-27 08:12] VITALS: BP 118/76; PULSE 68; RESP 18; TEMP 97.8; O2SAT 97
[2023-12-27 21:32] VITALS: RESP 18
[2023-12-28 08:45] VITALS: BP 125/63; PULSE 78; RESP 18; TEMP 98; O2SAT 98
[2023-12-28 20:26] VITALS: BP 126/82; PULSE 76; RESP 18; TEMP 97.9; O2SAT 97
[2023-12-29 08:53] VITALS: BP 138/74; PULSE 73; RESP 18; TEMP 98.1; O2SAT 98
[2023-12-29 20:00] VITALS: BP 114/67; PULSE 71; RESP 17; TEMP 97.1; O2SAT 96
[2023-12-30 09:00] VITALS: BP 128/80; PULSE 97; RESP 18; TEMP 97; O2SAT 97
[2023-12-30 20:08] VITALS: BP 124/74; PULSE 73; RESP 18; TEMP 96.8; O2SAT 97
[2023-12-30 22:07] VITALS: BP 124/74; PULSE 73; RESP 17; TEMP 96.5; O2SAT 97
[2023-12-31 11:45] VITALS: RESP 18
[2023-12-31 20:38] VITALS: BP 121/76; PULSE 70; RESP 18; TEMP 97.5
[2024-01-01 08:15] VITALS: BP 130/77; PULSE 69; RESP 17; TEMP 98; O2SAT 98
[2024-01-01 22:15] VITALS: BP 135/80; PULSE 91; RESP 18; TEMP 97.4; O2SAT 95
[2024-01-02 09:04] VITALS: BP 118/81; PULSE 77; RESP 18; TEMP 98.5; O2SAT 96
[2024-01-02 20:35] VITALS: BP 135/72; PULSE 77; RESP 18; TEMP 97.3; O2SAT 97
[2024-01-03 08:23] VITALS: BP 99/50; PULSE 60; RESP 16; O2SAT 98
[2024-01-03 20:00] VITALS: BP 147/76; PULSE 69; RESP 18; TEMP 97.2; O2SAT 99
[2024-01-03 20:45] VITALS: BP 147/76; PULSE 69; RESP 18; TEMP 97.2; O2SAT 99
[2024-01-04 08:15] VITALS: BP 138/82; PULSE 72; RESP 18; TEMP 97.6; O2SAT 98
[2024-01-04] MEDS: HALOPERIDOL LACTATE 5 MG/ML VIAL IM PRN (11:02)
[2024-01-04 20:54] VITALS: BP 107/58; PULSE 74; RESP 18; O2SAT 97
[2024-01-05 08:32] VITALS: BP 96/64; PULSE 63; RESP 17; TEMP 97.8; O2SAT 97
[2024-01-05 20:21] VITALS: BP 121/84; PULSE 70; RESP 18; TEMP 98; O2SAT 97
[2024-01-06 08:15] VITALS: BP 134/72; PULSE 86; RESP 17; TEMP 97.9; O2SAT 96
[2024-01-07 08:15] VITALS: BP 102/59; PULSE 72; RESP 18; TEMP 98; O2SAT 98
[2024-01-07 09:40] VITALS: BP 124/64; PULSE 72; RESP 18
[2024-01-07 20:52] VITALS: BP 120/67; PULSE 75; RESP 18; TEMP 97.9
[2024-01-08 08:11] VITALS: BP 118/70; PULSE 72; RESP 18; TEMP 98; O2SAT 99
[2024-01-08 20:49] VITALS: BP 114/65; PULSE 89; RESP 18; TEMP 98; O2SAT 98
[2024-01-09 08:18] VITALS: BP 145/79; PULSE 78; RESP 18; TEMP 97.8; O2SAT 99
[2024-01-09] MEDS: MAG HYDROX/ALUMINUM HYD/SIMETH ES 30 ML SUSPENSION UDCUP PO PRN (10:08)
[2024-01-09 21:02] VITALS: BP 131/74; PULSE 76; RESP 18; TEMP 98; O2SAT 99
[2024-01-10 09:25] VITALS: BP 136/68; PULSE 77; RESP 18; TEMP 97.7; O2SAT 96
[2024-01-10 20:29] VITALS: BP 121/70; PULSE 74; RESP 19; TEMP 97.3; O2SAT 99
[2024-01-11 08:47] VITALS: BP 144/87; PULSE 90; RESP 18; TEMP 98; O2SAT 97
[2024-01-11 20:35] VITALS: BP 139/88; PULSE 94; RESP 18; TEMP 97.9; O2SAT 97
[2024-01-12 09:49] VITALS: BP 144/85; PULSE 83; RESP 18; TEMP 97.1; O2SAT 98
[2024-01-12 20:20] VITALS: BP 139/74; PULSE 71; RESP 18; TEMP 96.5; O2SAT 99
[2024-01-13 09:30] VITALS: BP 126/74; PULSE 75; RESP 18; TEMP 96.9; O2SAT 99
[2024-01-13 21:58] VITALS: BP 137/69; PULSE 79; RESP 18; TEMP 97.1; O2SAT 95
[2024-01-14 10:24] VITALS: BP 111/59; PULSE 79; RESP 17; TEMP 97.9; O2SAT 96
[2024-01-14 20:54] VITALS: BP 148/77; PULSE 75; RESP 18; TEMP 97.2; O2SAT 99
[2024-01-15 08:47] VITALS: BP 139/75; PULSE 71; RESP 17; TEMP 98.4; O2SAT 96
[2024-01-15 21:11] VITALS: BP 131/82; PULSE 83; RESP 19; TEMP 97.9; O2SAT 92
[2024-01-16 08:22] VITALS: BP 154/72; PULSE 89; RESP 18; TEMP 98.2; O2SAT 97
[2024-01-16 21:20] VITALS: RESP 18
[2024-01-17 10:39] VITALS: BP 156/98; PULSE 79; RESP 18; TEMP 97; O2SAT 99
[2024-01-17 21:09] VITALS: BP 156/79; PULSE 97; RESP 18; TEMP 97.9; O2SAT 99
[2024-01-18 09:00] VITALS: BP 121/64; PULSE 78; RESP 17; TEMP 97.3; O2SAT 98
[2024-01-18 20:58] VITALS: BP 137/81; PULSE 69; RESP 18; TEMP 98; O2SAT 98
[2024-01-19 08:51] VITALS: BP 145/99; PULSE 90; RESP 17; TEMP 98; O2SAT 96
[2024-01-19] MEDS ORDERED: NYSTATIN 15 GM POWDER BOTTLE TP PRN (17:15)
[2024-01-19 21:31] VITALS: BP 122/78; PULSE 75; RESP 18; TEMP 97.8; O2SAT 98
[2024-01-20 08:29] VITALS: BP 145/75; PULSE 79; RESP 18; TEMP 97.8; O2SAT 98
[2024-01-20 20:20] VITALS: BP 138/83; PULSE 81; RESP 19; TEMP 98.1; O2SAT 97
[2024-01-21 09:57] VITALS: BP 140/80; PULSE 89; RESP 19; TEMP 97.8; O2SAT 96
[2024-01-21 21:09] VITALS: BP 134/65; PULSE 74; RESP 18; TEMP 97.2; O2SAT 100
[2024-01-22 08:12] VITALS: BP 128/74; PULSE 74; RESP 17; TEMP 97.6; O2SAT 98
[2024-01-22 20:51] VITALS: BP 149/80; PULSE 81; RESP 18; TEMP 97.2; O2SAT 98
[2024-01-22 20:57] VITALS: BP 140/80; PULSE 81; RESP 18; TEMP 97.2; O2SAT 98
[2024-01-23 08:00] VITALS: BP 155/82; PULSE 72; RESP 18; TEMP 97.2; O2SAT 98
[2024-01-23] MEDS ORDERED: AMLO-258 PO (15:17)
[2024-01-23] MEDS ORDERED: LEVO200 PO (15:17)
[2024-01-23] MEDS ORDERED: CHOL500013 PO (15:17)
[2024-01-23] MEDS ORDERED: LEVO50 PO (15:17)
[2024-01-23] MEDS ORDERED: MELA5TAB40 PO (15:17)
[2024-01-23] MEDS ORDERED: LISI-893 PO (15:17)
[2024-01-23] MEDS ORDERED: FLUT1BLS IH (15:17)
[2024-01-23] MEDS ORDERED: VALP250S23 PO (15:58)
[2024-01-23 21:28] VITALS: BP 133/71; PULSE 87; RESP 18; TEMP 97.1; O2SAT 98
[2024-01-24 08:13] VITALS: BP 136/77; PULSE 70; RESP 18; TEMP 97.2; O2SAT 98
== END 2024-01-24 09:45 | DRG 885 ==
LOC: EMS 18:37 → 3EC 10-20 19:34
PROVIDERS: ADMIT Psychiatry & Neurology Psychiatry; ATTEND Psychiatry & Neurology Psychiatry
PROC: GZHZZZZ Group Psychotherapy (ICD-10-PCS; principal; 2023-10-21)
DX: F25.0 Schizoaffective disorder, bipolar type (principal); N17.9 Acute kidney failure, unspecified; Z93.3 Colostomy status; K51.90 Ulcerative colitis, unspecified, without complications; J44.9 Chronic obstructive pulmonary disease, unspecified; I10 Essential (primary) hypertension; K21.9 Gastro-esophageal reflux disease without esophagitis; Z20.822 Contact with and (suspected) exposure to COVID-19; E03.9 Hypothyroidism, unspecified; D64.9 Anemia, unspecified; F10.10 Alcohol abuse, uncomplicated; F41.9 Anxiety disorder, unspecified; F32.A Depression, unspecified; G47.00 Insomnia, unspecified; F17.210 Nicotine dependence, cigarettes, uncomplicated; Z79.899 Other long term (current) drug therapy; Z88.8 Allergy status to other drugs, medicaments and biological substances
CPT/HCPCS: 70150; 80048; 80053; 80061; 80164; 80307; 83036; 84132; 84436; 84439; 84443; 85025; 99291; G0480; J1200; J1630; J2060; J3230; Q9967